=== PATIENT | male | born 1945 | race Hispanic/Latino ===

== ENCOUNTER 2017-05-29 22:28 | Inpatient (IN) | payer MEDICARE ==
[2017-05-29] MEDS ORDERED: NACL 0.9% 500 ML 500 ML IV ONE (23:25)
--- NOTE | 2017-05-29 23:33 | Emergency Department Report ---
ED Shortness of Breath HPI - General Chief Complaint: Multiple Trauma Stated Complaint: L SIDE PAIN/MAURA Time Seen by Provider: 05/29/17 23:24 Source: patient, EMS Mode of arrival: Stretcher Limitations: No Limitations - History of Present Illness Initial Comments: 72 years old male brought by EMS with him in complaining of shortness of breath as seen on for 2 days patient has history of COPD congestive heart failure out of his medication for 7 days per EMS report .patient also indicated stated that he fell on his left side and is complaining of left-sided chest and left upper abdominal pain. No other injury. Patient denied fever nausea or vomiting. MD Complaint: shortness of breath, chest pain -: days(s) (to ) Severity: moderate Known History Of: COPD, congestive heart failure - Related Data Home Medications Medication Instructions Recorded Confirmed Last Taken Ferrous Sulfate [Iron Supplement 325 mg PO DAILY 06/08/16 04/11/17 Unknown 325 Mg tab] Previous Rx's Medication Instructions Recorded Last Taken Type Famotidine [Pepcid] 20 mg PO BID #60 tablet 02/25/17 Unknown Rx Digoxin [Lanoxin] 0.125 mg PO DAILY@1700 #30 tablet 03/08/17 Unknown Rx Metoprolol Xl [Metoprolol 75 mg PO QDAY #90 tablet 03/08/17 Unknown Rx SUCCINATE ER TAB] ALPRAZolam [Xanax TAB] 1 mg PO BID PRN #7 tablet 04/16/17 Unknown Rx Aspirin EC [Aspirin Enteric Coated 81 mg PO QDAY #30 tablet. 04/16/17 Unknown Rx TAB] Furosemide [Lasix TAB] 40 mg PO QDAY tablet 04/16/17 Unknown Rx Gabapentin [Neurontin] 100 mg PO Q8HR capsule 04/16/17 Unknown Rx Ipratropium [Atrovent NEB] 0.5 mg IH Q6HRT nebu 04/16/17 Unknown Rx Levalbuterol 1.25 [Xopenex] 1.25 mg IH Q6HRT nebu 04/16/17 Unknown Rx Lisinopril [Zestril TAB] 10 mg PO QDAY tablet 04/16/17 Unknown Rx predniSONE [Deltasone] 0 mg PO QDAY #60 tablet 04/16/17 Unknown Rx traMADol [Ultram 50 MG tab] 50 mg PO Q6H PRN #5 tablet 04/16/17 Unknown Rx Allergies Allergy/AdvReac Type Severity Reaction Status Date / Time albuterol Allergy Shortness Verified 02/20/17 17:27 of Breath ED Review of Systems ROS: Stated complaint: L SIDE PAIN/MAURA Other details as noted in HPI Comment: All other systems reviewed and negative Constitutional: denies: chills, fever Respiratory: cough, shortness of breath, SOB with exertion, SOB at rest Cardiovascular: chest pain, dyspnea on exertion Gastrointestinal: abdominal pain. denies: nausea, vomiting Neurological: denies: headache, weakness, numbness ED Past Medical Hx - Past Medical History Previous Medical History?: Yes Hx Hypertension: Yes Hx Heart Attack/AMI: No Hx Congestive Heart Failure: Yes Hx GERD: Yes (PUD) Hx Psychiatric Treatment: Yes (Anxiety, panic disorder) Hx Asthma: Yes Hx COPD: Yes Additional medical history: sciatica and back pain, atrial fibrillation - Surgical History Hx Cholecystectomy: Yes Additional Surgical History: PUD - abd surg - tonsilectomy, adenoidectomy, Colon resection - Social History Smoking Status: Never Smoker Substance Use Type: None - Medications Home Medications: Home Medications Medication Instructions Recorded Confirmed Last Taken Type Ferrous Sulfate [Iron Supplement 325 mg PO DAILY 06/08/16 04/11/17 Unknown History 325 Mg tab] Famotidine [Pepcid] 20 mg PO BID #60 tablet 02/25/17 04/11/17 Unknown Rx Digoxin [Lanoxin] 0.125 mg PO DAILY@1700 #30 tablet 03/08/17 04/11/17 Unknown Rx Metoprolol Xl [Metoprolol 75 mg PO QDAY #90 tablet 03/08/17 04/11/17 Unknown Rx SUCCINATE ER TAB] ALPRAZolam [Xanax TAB] 1 mg PO BID PRN #7 tablet 04/16/17 Unknown Rx Aspirin EC [Aspirin Enteric Coated 81 mg PO QDAY #30 tablet. 04/16/17 Unknown Rx TAB] Furosemide [Lasix TAB] 40 mg PO QDAY tablet 04/16/17 Unknown Rx Gabapentin [Neurontin] 100 mg PO Q8HR capsule 04/16/17 Unknown Rx Ipratropium [Atrovent NEB] 0.5 mg IH Q6HRT nebu 04/16/17 Unknown Rx Levalbuterol 1.25 [Xopenex] 1.25 mg IH Q6HRT nebu 04/16/17 Unknown Rx Lisinopril [Zestril TAB] 10 mg PO QDAY tablet 04/16/17 Unknown Rx predniSONE [Deltasone] 0 mg PO QDAY #60 tablet 04/16/17 Unknown Rx traMADol [Ultram 50 MG tab] 50 mg PO Q6H PRN #5 tablet 04/16/17 Unknown Rx ED Physical Exam - General Limitations: No Limitations General appearance: alert, in no apparent distress - Head Head exam: Present: atraumatic - Eye Eye exam: Present: normal appearance - ENT ENT exam: Present: normal exam - Neck Neck exam: Present: normal inspection - Respiratory Respiratory exam: Present: rales, chest wall tenderness, decreased breath sounds , prolonged expiratory. Absent: respiratory distress, wheezes, rhonchi, stridor , accessory muscle use - Cardiovascular Cardiovascular Exam: Present: tachycardia, irregular rhythm - GI/Abdominal GI/Abdominal exam: Present: soft, tenderness (left upper quadrant). Absent: guarding, rebound, rigid, normal bowel sounds - Extremities Exam Extremities exam: Present: normal inspection - Back Exam Back exam: Present: normal inspection - Neurological Exam Neurological exam: Present: alert, oriented X3, CN II-XII intact - Skin Skin exam: Present: warm, dry ED Course Vital Signs 05/29/17 05/29/17 05/29/17 22:31 22:43 22:46 Temperature 98.4 F Pulse Rate 95 H 107 H Respiratory 12 29 H 25 H Rate Blood Pressure 95/58 95/58 O2 Sat by Pulse 96 97 Oximetry 05/29/17 05/29/17 05/29/17 23:00 23:16 23:30 Temperature Pulse Rate 107 H 107 H 104 H Respiratory 22 29 H 28 H Rate Blood Pressure 89/59 89/59 105/70 O2 Sat by Pulse 97 98 100 Oximetry 05/29/17 05/30/17 05/30/17 23:46 00:00 00:16 Temperature Pulse Rate 112 H 109 H Respiratory 21 28 H 28 H Rate Blood Pressure 105/70 96/70 96/70 O2 Sat by Pulse 99 100 98 Oximetry 05/30/17 05/30/17 05/30/17 00:30 01:15 01:30 Temperature Pulse Rate Respiratory 27 H 19 Rate Blood Pressure 106/80 106/80 95/63 O2 Sat by Pulse 96 100 90 Oximetry 05/30/17 02:00 Temperature Pulse Rate Respiratory 20 Rate Blood Pressure 95/63 O2 Sat by Pulse 93 Oximetry - Reevaluation(s) Reevaluation #1: 05/30/17 02:55 patient stated that he feel better Discuss with Dr Boykin for admission. ED Medical Decision Making - Lab Data Result diagrams: 05/30/17 01:07 05/30/17 01:07 Critical care attestation.: If time is entered above; I have spent that time in minutes in the direct care of this critically ill patient, excluding procedure time. ED Disposition Clinical Impression: Chest pain, Pneumonia Disposition: - OP ADMIT IP TO THIS HOSP Is pt being admited?: Yes Condition: Stable Instructions: Chest Pain (ED), Bacterial Pneumonia (ED) Referrals: PRIMARY CARE, [Primary Care Provider] - 3-5 Days
[2017-05-30] MEDS ORDERED: ZOFRAN IV ONE (00:48)
[2017-05-30] MEDS ORDERED: MORPHINE IV ONE ×2 (00:48→03:25)
[2017-05-30 01:21] LABS: Mean Corpuscular HGB Conc 29 % (32-34); Platelet Count 188 K/mm3 (140-440); Red Blood Count 4.23 M/mm3 (3.65-5.03)
--- NOTE | 2017-05-30 01:25 | Cat Scan Report ---
FINAL REPORT PROCEDURE: CT CHEST WO CON TECHNIQUE: Computerized axial tomography of the chest was performed without contrast material. This study is performed without intravenous contrast and the sensitivity for pathology, including neoplasms, adenopathy, abscess, pulmonary embolism and aortic dissection, is reduced. HISTORY: trauma COMPARISON: 03/08/2017 TECHNICAL QUALITY: Satisfactory. FINDINGS: Heart and pericardium: The heart size is enlarged. Mild pericardial effusion is noted.. Thoracic aorta: The ascending aorta is dilated measuring up to 5.1 centimeters. This has not changed significantly since prior study. Moderate atherosclerosis of the aorta is identified.. Pulmonary vasculature: Normal. Lymph nodes: There are lymph nodes in the mediastinum these measure up to 12 millimeters.. Lungs: COPD with fibrosis and scarring in both lungs. There is pleural thickening with loculated effusion and the left lower lung. Slight pleural thickening with mild effusion right lower lung. Central airway appears patent.. Pleural space: Bilateral pleural thickening with slight effusions, on the left there is loculated effusion in the lower lung and midlung.. Musculoskeletal structures: Moderate degenerative changes of the thoracic spine. No acute osseous abnormality.. Upper abdominal structures: No significant abnormality. IMPRESSION: COPD with fibrosis and scarring in both lungs. Pleural thickening a loculated effusion in the left lung. Slight pleural thickening and mild effusion right lower lung. No pneumothorax. Ascending aortic aneurysm measures up to 5.1 centimeters. Moderate atherosclerosis of the aorta..
[2017-05-30 01:27] LABS: Hemoglobin 8.2 gm/dl (11.8-15.2); White Blood Count 21.1 K/mm3 (4.5-11.0)
[2017-05-30 01:28] LABS: Hematocrit 28.9 % (35.5-45.6); Mean Corpuscular Hemoglobin 20 pg (28-32); Mean Corpuscular Volume 68 fl (84-94); Red Cell Distribution Width 23.1 % (13.2-15.2)
--- NOTE | 2017-05-30 01:36 | Cat Scan Report ---
FINAL REPORT PROCEDURE: CT ABDOMEN PELVIS WO CON TECHNIQUE: Computerized axial tomography of the abdomen and pelvis was performed without intravenous contrast. This study is performed without intravascular contrast material and its sensitivity for abdominal and pelvic pathology, including neoplasms, inflammation, abscess, free fluid, thrombosis, arterial dissection and infarction, is reduced compared with a contrast enhanced study. HISTORY: trauma COMPARISON: No prior studies are available for comparison. FINDINGS: Liver: The liver size is normal. The attenuation is normal.. Spleen: Normal size and attenuation. Gallbladder and biliary system: The gallbladder is absent. No dilatation of the biliary ductal system. Pancreas: Normal. Adrenals: Normal. Kidneys: Both kidneys have normal size. Mild left hydronephrosis is identified. The left ureter has a normal caliber without obstruction. No stones or masses are identified.. GI tract: This stomach is normal. There are surgical clips identified in the epigastric region. The small bowel has a normal caliber without obstruction, ileus or enteritis. There is significant fecal debris throughout the colon. Constipation is suspected. Mild diverticular changes in the sigmoid colon region. No inflammatory process is noted.. Lymph nodes and mesentery: There are some scattered lymph nodes identified throughout the abdomen and pelvis.. Vasculature: Mild atherosclerosis of the aorta and branching vessels.. Bladder: The urinary bladder is distended.. Reproductive organs: Normal. Peritoneum: No free fluid. Musculoskeletal structures: Moderate degenerative changes of the thoracic and lumbar spine.. Other: None. IMPRESSION: Mild left hydronephrosis is identified. The left ureter has a normal caliber. No evidence of renal stones or masses. Nonobstructive uropathy is possible. There is no evidence of intestinal obstruction. No ileus or enteritis. Significant fecal debris throughout the colon most consistent with constipation. Mild diverticulosis of the sigmoid colon. Diffuse scattered nondilated lymph nodes throughout the mesentery. Previous cholecystectomy..
[2017-05-30 01:43] LABS: Alanine Aminotransferase 10 units/L (7-56); Albumin 2.5 g/dL (3.9-5); Alkaline Phosphatase 98 units/L (35-129); Anion Gap 17 mmol/L; BUN/Creatinine Ratio 26.66; Blood Urea Nitrogen 16 mg/dL (9-20); Calcium 7.7 mg/dL (8.4-10.2); Carbon Dioxide 19 mmol/L (22-30); Glucose 90 mg/dL (75-100); Potassium 4.2 mmol/L (3.6-5.0); Sodium 138 mmol/L (137-145); Total Protein 5.1 g/dL (6.3-8.2)
[2017-05-30 02:37] LABS: ISTAT Base Excess -3; ISTAT DEVICE 0; ISTAT HCO3 21.8; ISTAT PCO2 35.4 (35-45); ISTAT PH 7.397 (7.35-7.45); ISTAT PO2 77 (80-105); ISTAT SO2 95; ISTAT TCO2 23
[2017-05-30 03:23] LABS: Blastocytes % (Manual) 0 %; Eosinophils % (Manual) 0 % (0.0-4.3)
[2017-05-30 03:24] LABS: Anisocytosis 1+; Diff Status Complete; Hypochromasia 1+; Ovalocytes 1+; Polychromasia Few
[2017-05-30] MEDS ORDERED: MORPHINE ONE (03:24)
[2017-05-30 03:26] LABS: Hypersegmented Neutrophils Few
[2017-05-30] MEDS ORDERED: ZOFRAN IV PRN (03:26)
[2017-05-30] MEDS ORDERED: TYLENOL PO PRN (03:26)
[2017-05-30] MEDS ORDERED: MILK OF MAGNESIA PO PRN (03:26)
[2017-05-30] MEDS ORDERED: DULCOLAX PR PRN (03:26)
--- NOTE | 2017-05-30 03:30 | History and Physical Report ---
History of Present Illness Date of examination: 05/30/17 History of present illness: 72-year-old man history of hypertension, CHF, coronary artery disease, COPD, A. fib, chronic back pain comes emergency room with complaint of cough productive of green sputum, fever and shortness of breath. He is stated he sustained a fall on the left side Review Of Systems: Constitutional: no chills, weight loss Ears, eyes, nose, mouth and throat: no nasal congestion, no nasal discharge, no sinus pressure, blurry vision, diplopia Neck: No neck pain or rigidity. Cardiovascular: chest pain, orthopnea, palpitations Respiratory:+ shortness of breath, cough Gastrointestinal: abdominal pain, hematochezia Genitourinary : no dysuria, frequency , hematuria Musculoskeletal: no joint swelling or muscle ache Integumentary: no rash, no pruritis Neurological: no parathesias, focal weakness Endocrine: no cold or heat intolerance, no polyuria or polydipsia Hematologic/Lymphatic: no easy bruising, no easy bleeding, no gland swelling Allergic/Immunologic: no urticaria, no angioedema. PAST MEDICAL HISTORY:hypertension, CHF, coronary artery disease, COPD, A. fib, chronic back pain PAST SURGICAL HISTORY: Tonsillectomy, adenoidectomy, colon resection FAMILY HISTORY: Hypertension SOCIAL HISTORY: Denies alcohol, tobacco, drugs Medications and Allergies Allergies Allergy/AdvReac Type Severity Reaction Status Date / Time albuterol Allergy Shortness Verified 02/20/17 17:27 of Breath Home Medications Medication Instructions Recorded Confirmed Last Taken Type Ferrous Sulfate [Iron Supplement 325 mg PO DAILY 06/08/16 06/01/17 1 Day Ago History 325 Mg tab] Doxycycline [Vibramycin CAP] 100 mg PO BID #4 capsule 06/03/17 Unknown Rx Levofloxacin [Levaquin TAB] 750 mg PO Q24HR #2 tablet 06/03/17 Unknown Rx oxyCODONE /ACETAMINOPHEN [Percocet 1 tab PO Q4H PRN #30 tablet 06/03/17 Unknown Rx 5/325 mg] ALPRAZolam [Xanax TAB] 1 mg PO BID PRN #7 tablet 06/05/17 Unknown Rx Aspirin EC [Aspirin Enteric Coated 81 mg PO QDAY #30 tablet. 06/05/17 Unknown Rx TAB] Digoxin [Lanoxin] 0.125 mg PO DAILY@1700 #30 tablet 06/05/17 Unknown Rx Famotidine [Pepcid] 20 mg PO BID #60 tablet 06/05/17 Unknown Rx Furosemide [Lasix TAB] 20 mg PO QDAY #30 tablet 06/05/17 Unknown Rx Gabapentin [Neurontin] 100 mg PO Q8HR #30 capsule 06/05/17 Unknown Rx Ipratropium [Atrovent NEB] 0.5 mg IH Q6HRT 30 Days 06/05/17 Unknown Rx Levalbuterol 1.25 [Xopenex] 1.25 mg IH Q6HRT 14 Days 06/05/17 Unknown Rx Metoprolol [Lopressor] 25 mg PO BID #60 tablet 06/05/17 Unknown Rx Potassium Chloride [K-Dur] 5 meq PO QDAY #30 tablet 06/05/17 Unknown Rx Active Meds: Active Medications Piperacillin Sod/Tazobactam Sod (Zosyn/Ns 3.375gm/50ml) 3.375 gm in 50 mls @ 100 mls/hr IV Q6HR LUIS Exam - Physical Exam Narrative exam: Gen. appearance: Patient lying in bed, no apparent distress HEENT: Normocephalic, atraumatic, pupils equally round and reactive to light, extraocular movement intact, and no sclericterus,. No JVD or thyromegaly or nodule,neck supple, no carotid bruit ,mucous membranes moist, no exudate or erythema Heart: S1, S2, regular rate and rhythm Lungs: Crackles and rhonchi bilaterally, decreased breath sounds on the left breathing comfortable Abdomen: Positive bowel sounds, nontender, nondistended, no organomegaly Extremity: No edema, cyanosis, clubbing Skin: No rash, nodules, warm, dry Neuro: Oriented 3, cranial nerves II-12 intact, speech is fluent, motor and sensory intact - Constitutional Vitals: Temp Pulse Resp BP Pulse Ox 98.4 F 109 H 20 95/63 93 05/29/17 22:43 05/30/17 00:00 05/30/17 02:00 05/30/17 02:00 05/30/17 02:00 Results - Labs CBC & Chem 7: 06/05/17 09:56 06/05/17 09:56 Labs: Abnormal lab results 05/30/17 05/30/17 05/30/17 Range/Units 01:07 01:07 01:07 WBC 21.1 H (4.5-11.0) K/mm3 Hgb 8.2 L (11.8-15.2) gm/dl Hct 28.9 L (35.5-45.6) % MCV 68 L (84-94) fl MCH 20 L (28-32) pg MCHC 29 L (32-34) % RDW 23.1 H (13.2-15.2) % Lymphocytes % (Manual) 12.0 L (13.4-35.0) % Monocytes % (Manual) 9.0 H (0.0-7.3) % Basophils % (Manual) 3.0 H (0.0-1.8) % Seg Neutrophils # Man 13.9 H (1.8-7.7) K/mm3 Monocytes # (Manual) 1.9 H (0.0-0.8) K/mm3 Basophils # (Manual) 0.6 H (0.0-0.1) K/mm3 POC ABG pO2 (80-105) Carbon Dioxide 19 L (22-30) mmol/L Creatinine 0.6 L (0.8-1.5) mg/dL Calcium 7.7 L (8.4-10.2) mg/dL NT-Pro-B Natriuret Pep 2333 H (0-900) pg/mL Total Protein 5.1 L (6.3-8.2) g/dL Albumin 2.5 L (3.9-5) g/dL 05/30/17 Range/Units 01:55 WBC (4.5-11.0) K/mm3 Hgb (11.8-15.2) gm/dl Hct (35.5-45.6) % MCV (84-94) fl MCH (28-32) pg MCHC (32-34) % RDW (13.2-15.2) % Lymphocytes % (Manual) (13.4-35.0) % Monocytes % (Manual) (0.0-7.3) % Basophils % (Manual) (0.0-1.8) % Seg Neutrophils # Man (1.8-7.7) K/mm3 Monocytes # (Manual) (0.0-0.8) K/mm3 Basophils # (Manual) (0.0-0.1) K/mm3 POC ABG pO2 77 L (80-105) Carbon Dioxide (22-30) mmol/L Creatinine (0.8-1.5) mg/dL Calcium (8.4-10.2) mg/dL NT-Pro-B Natriuret Pep (0-900) pg/mL Total Protein (6.3-8.2) g/dL Albumin (3.9-5) g/dL - Imaging and Cardiology CT scan - abdomen: report reviewed CT scan - chest: report reviewed CT scan - pelvis: report reviewed Assessment and Plan Assessment Sepsis Possible empyema COPD CHF, stable Hypertension Coronary artery disease A. fib Chronic back pain Plan Admit to medicine Start IV Zosyn, follow cultures, consult pulmonary No IV fluids, history of CHF Continue appropriate outpatient medications, start DVT prophylaxis
[2017-05-30] MEDS ORDERED: LEVAQUIN 750MG/150ML 750 MG/150 ML BAG IV SCH (04:00)
[2017-05-30] MEDS: ZOSYN/NS 3.375GM/50ML 3.375 GM/50 ML BAG IV SCH ×3 (06:34→18:43)
[2017-05-30] MEDS: ATROVENT IH SCH ×3 (08:13→19:21)
--- NOTE | 2017-05-30 08:16 | Event Note ---
Date: 05/30/17 72-year-old man history of hypertension, CHF, coronary artery disease, COPD, A. fib, chronic back pain comes emergency room with complaint of cough productive of green sputum, fever and shortness of breath. He is stated he sustained a fall on the left side. At home he is unable to care for himself is not compliant with his medications. He does not complain with anticoagulation. He continues to deteriorate, and is in and out of hospital. The only med he seems to take when he is at home and his pain meds. CT chest, image reviewed, COPD with fibrosis and scarring in both lungs. Pleural thickening, a loculated effusion in the left lung. Slight pleural thickening and mild effusion right lung. No pneumothorax. If any acute sick aneurysm measures up to 5.[address] abdomen and pelvis without contrast: Image reviewed: Mild left hydronephrosis is identified. The left ureter has a normal caliber. No evidence of renal stones or masses. An obstructive uropathy is possible. There is no evidence of his tests and I'm obstruction, no IVS enteritis. Significant fecal debris throughout the colon was consistent with constipation. Sepsis due to Possible empyema pulm and ID consult IV abx, fup blood cx Will Need CT surgery to assess for drainage of loculated effusion and send fluid for culture CT thoracentesis, ordered COPD nebs, steroids and abx CHF, stable euvolemic at this time, continue home meds Hypertension cont home meds Cardiac: Coronary artery disease/A. fib HR fairly controlled, continue meds cardiology consult check dig level continue Dig, B-Bl and MARIBEL non compliant with Anticoagulation Severe Malnutrition Mower Mechanic consult, encourage balanced diet Chronic back pain Pain meds as needed Opioid dependence cont pain meds Complete immobility due to Frailty PT ordered, continue supportive care Failure to thrive Continue supportive care DVT ppx lovenox This patient is non compliant, and very frail, unable to care for himself, he would benefit from SNF placement, PT, OT
[2017-05-30] MEDS ORDERED: VANCOMYCIN PHARMACY TO DOSE IV SCH (09:00)
[2017-05-30] MEDS: HALFPRIN EC PO SCH (09:47)
[2017-05-30] MEDS: FEOSOL PO SCH (09:47)
[2017-05-30] MEDS: PEPCID PO SCH ×2 (09:47→22:53)
[2017-05-30] MEDS: LOVENOX SUB-Q SCH (09:48)
[2017-05-30] MEDS: ZESTRIL PO SCH (09:49)
[2017-05-30] MEDS: TOPROL XL PO SCH (09:50)
[2017-05-30] MEDS ORDERED: VANCOMYCIN 1,250 MG in NACL 0.9% 250ML 250 ML IV ONE ×2 (10:00→14:00)
[2017-05-30] MEDS ORDERED: LASIX PO SCH (10:00)
[2017-05-30] MEDS ORDERED: LOVENOX SUB-Q SCH (10:00)
[2017-05-30] MEDS ORDERED: MORPHINE IV PRN (10:30)
--- NOTE | 2017-05-30 11:53 | Consultation ---
History of Present Illness Consult date: 05/30/17 Reason for consult: other (chest pain ,back pain) - History of present illness History of present illness: this is a debilitated 72 year old male with a hx of CHF, advanced COPD, aortic anuerysm (stable), who presented to the ER for evaluation of chest pain and back pain, his WBC was 22k, he is a poor historian, A CT of the Chest revealed small left side loculated posterior pleural effusion, lung changes of COPD, Thoracic anueurysm (5 cm and stable comparing last CT chest). He is extremely malnourished and debilitated. Past History Past Medical History: CAD, COPD, hypertension, PVD Past Surgical History: Other (hx of some type of gastric surgery he can not recall 30 years ago/poor historian) Social history: smoking Family history: other (unobtainable) Medications and Allergies Allergies Allergy/AdvReac Type Severity Reaction Status Date / Time albuterol Allergy Shortness Verified 02/20/17 17:27 of Breath Home Medications Medication Instructions Recorded Confirmed Last Taken Type Ferrous Sulfate [Iron Supplement 325 mg PO DAILY 06/08/16 04/11/17 Unknown History 325 Mg tab] Famotidine [Pepcid] 20 mg PO BID #60 tablet 02/25/17 04/11/17 Unknown Rx Digoxin [Lanoxin] 0.125 mg PO DAILY@1700 #30 tablet 03/08/17 04/11/17 Unknown Rx Metoprolol Xl [Metoprolol 75 mg PO QDAY #90 tablet 03/08/17 04/11/17 Unknown Rx SUCCINATE ER TAB] ALPRAZolam [Xanax TAB] 1 mg PO BID PRN #7 tablet 04/16/17 Unknown Rx Aspirin EC [Aspirin Enteric Coated 81 mg PO QDAY #30 tablet. 04/16/17 Unknown Rx TAB] Furosemide [Lasix TAB] 40 mg PO QDAY tablet 04/16/17 Unknown Rx Gabapentin [Neurontin] 100 mg PO Q8HR capsule 04/16/17 Unknown Rx Ipratropium [Atrovent NEB] 0.5 mg IH Q6HRT nebu 04/16/17 Unknown Rx Levalbuterol 1.25 [Xopenex] 1.25 mg IH Q6HRT nebu 04/16/17 Unknown Rx Lisinopril [Zestril TAB] 10 mg PO QDAY tablet 04/16/17 Unknown Rx predniSONE [Deltasone] 0 mg PO QDAY #60 tablet 04/16/17 Unknown Rx traMADol [Ultram 50 MG tab] 50 mg PO Q6H PRN #5 tablet 04/16/17 Unknown Rx Active Meds: Active Medications Acetaminophen (Tylenol) 650 mg PO Q4H PRN PRN Reason: Pain MILD(1-3)/Fever >100.5/[place] Last Admin: 05/30/17 07:08 Dose: 650 mg Alprazolam (Xanax) 1 mg PO BID PRN PRN Reason: Anxiety Arformoterol Tartrate (Brovana Nebu) 15 mcg IH Q12HRT [facility] Aspirin (Halfprin Ec) 81 mg PO QDAY [facility] Last Admin: 05/30/17 09:47 Dose: 81 mg Bisacodyl (Dulcolax) 10 mg NV QDAY PRN PRN Reason: Constipation unrelieved by MOM Budesonide (Pulmicort) 0.5 mg IH Q12HRT [facility] Digoxin (Lanoxin) 0.125 mg PO DAILY@1700 [facility] Enoxaparin Sodium (Lovenox) 40 mg SUB-Q QDAY@1000 [facility] Last Admin: 05/30/17 09:48 Dose: 40 mg Famotidine (Pepcid) 20 mg PO BID [facility] Last Admin: 05/30/17 09:47 Dose: 20 mg Ferrous Sulfate (Feosol) 325 mg PO DAILY [facility] Last Admin: 05/30/17 09:47 Dose: 325 mg Furosemide (Lasix) 40 mg PO QDAY [facility] Gabapentin (Neurontin) 100 mg PO Q8HR [facility] Piperacillin Sod/Tazobactam Sod (Zosyn/Ns 3.375gm/50ml) 3.375 gm in 50 mls @ 100 mls/hr IV Q6HR [facility] Last Admin: 05/30/17 06:34 Dose: 100 mls/hr Levofloxacin/Dextrose (Levaquin 750mg/150ml) 750 mg in 150 mls @ 100 mls/hr IV Q24H [facility] PRN Reason: Protocol Last Admin: 05/30/17 05:36 Dose: 100 mls/hr Vancomycin HCl (Vancomycin/Ns 1 Gm/250 Ml) 1 gm in 250 mls @ 166.667 mls/hr IV Q12H [facility] Influenza Virus Vaccine Quadrival (Fluarix Quad [id number](36 Mos+)) 0.5 ml IM .ONCE ONE Stop: 05/31/17 12:01 Ipratropium [place] (Atrovent) 0.5 mg IH Q6HRT [facility] Last Admin: 05/30/17 08:13 Dose: 0.5 mg Levalbuterol HCl (Xopenex) 0.63 mg IH Q6HRT [facility] Lisinopril (Zestril) 10 mg PO QDAY [facility] Last Admin: 05/30/17 09:49 Dose: Not Given Magnesium Hydroxide (Milk Of Magnesia) 30 ml PO Q4H PRN PRN Reason: Constipation Methylprednisolone Sodium Succinate (Solu-Medrol) 40 mg IV Q24HR [facility] Last Admin: 05/30/17 09:47 Dose: 40 mg Metoprolol Succinate (Toprol Xl) 75 mg PO QDAY [facility] Last Admin: 05/30/17 09:50 Dose: Not Given Morphine Sulfate (Morphine) 2 mg IV Q4H PRN PRN Reason: Pain, Moderate (4-6) Last Admin: 05/30/17 11:16 Dose: 2 mg Ondansetron HCl (Zofran) 4 mg IV Q8H PRN PRN Reason: N/V unrelieved by Reglan Oxycodone/Acetaminophen (Percocet 5/325) 1 tab PO Q4H PRN PRN Reason: Pain, Moderate (4-6) Vancomycin HCl (Vancomycin Pharmacy To Dose) 1 each IV PKCONSULT [facility] PRN Reason: Protocol Review of Systems - Constitutional other (chest and back pain, shortness of breath) Exam Vital Signs Resp 12 05/29/17 22:31 - General physical appearance Positive: cathetic, chronically ill - Eyes Positive: PERRL, normal occular movement - ENT Positive: normal pinna, normal nares, normal mucosa, no hearing loss, no congestion - Neck Positive: trachea midline - Respiratory Positive: clear to percussion - Cardiovascular Rhythm: irregularly irregular Heart Sounds: Present: S1 & S2. Absent: rub, click - Breasts Breasts: normal - Abdomen Abdomen: Present: soft, bowel sounds normal Hernia: none (midline lap scar/healed) - Neurologic Neurologic: other (poor historian) - Psychiatric Psychiatric: other (poor historian) Results - Labs 05/30/17 01:07 05/30/17 01:07 Assessment and Plan left sided pneumonia with small associated loculated left pleural effusion malnourished and deconditioned Very poor surical candidate with I suspect advanced COPD, dimentia? Aortic anuerysm hx CHF, afib? Recc conservative management, aggressive nutritional measures, consider pulm evaluation, possibe thoracocentesis for dx fluid and cultures.
--- NOTE | 2017-05-30 11:53 | Consultation ---
History of Present Illness Consult date: 05/30/17 Consult reason: congestive heart failure, shortness of breath History of present illness: 72-year-old man history of hypertension, CHF, coronary artery disease, COPD, A. fib, chronic back pain comes emergency room with complaint of cough productive of green sputum, fever and shortness of breath. He is stated he sustained a fall on the left side. Patient is well-known to us and has been seen by us in the past but he is quite noncompliant. His main symptom at this time is left sided pain. He apparently fell in the kitchen and hurt his lower left chest. Patient is a nonsmoker. Patient is seen for further cardiac evaluation. Patient was noted to have a loculated pleural effusion on the left. The concern is that this may be an empyema and is currently on IV antibiotic. Pulmonary and ID consult is being obtained. There is consideration for CT surgery to consider drainage of this loculated effusion. Patient denies any chest pain suggestive of angina pectoris. He has not been taking his medications regularly and is quite noncompliant with follow-up and medications. Patient has no significant paroxysmal nocturnal dyspnea recurrent edema recently. Past History Past Medical History: atrial fib, CAD, heart failure (nonsmoker), hypertension, seizures Family history: hypertension Medications and Allergies Allergies Allergy/AdvReac Type Severity Reaction Status Date / Time albuterol Allergy Shortness Verified 02/20/17 17:27 of Breath Home Medications Medication Instructions Recorded Confirmed Last Taken Type Ferrous Sulfate [Iron Supplement 325 mg PO DAILY 06/08/16 04/11/17 Unknown History 325 Mg tab] Famotidine [Pepcid] 20 mg PO BID #60 tablet 02/25/17 04/11/17 Unknown Rx Digoxin [Lanoxin] 0.125 mg PO DAILY@1700 #30 tablet 03/08/17 04/11/17 Unknown Rx Metoprolol Xl [Metoprolol 75 mg PO QDAY #90 tablet 03/08/17 04/11/17 Unknown Rx SUCCINATE ER TAB] ALPRAZolam [Xanax TAB] 1 mg PO BID PRN #7 tablet 04/16/17 Unknown Rx Aspirin EC [Aspirin Enteric Coated 81 mg PO QDAY #30 tablet. 04/16/17 Unknown Rx TAB] Furosemide [Lasix TAB] 40 mg PO QDAY tablet 04/16/17 Unknown Rx Gabapentin [Neurontin] 100 mg PO Q8HR capsule 04/16/17 Unknown Rx Ipratropium [Atrovent NEB] 0.5 mg IH Q6HRT nebu 04/16/17 Unknown Rx Levalbuterol 1.25 [Xopenex] 1.25 mg IH Q6HRT nebu 04/16/17 Unknown Rx Lisinopril [Zestril TAB] 10 mg PO QDAY tablet 04/16/17 Unknown Rx predniSONE [Deltasone] 0 mg PO QDAY #60 tablet 04/16/17 Unknown Rx traMADol [Ultram 50 MG tab] 50 mg PO Q6H PRN #5 tablet 04/16/17 Unknown Rx Active Meds: Active Medications Acetaminophen (Tylenol) 650 mg PO Q4H PRN PRN Reason: Pain MILD(1-3)/Fever >100.5/[place] Last Admin: 05/30/17 07:08 Dose: 650 mg Alprazolam (Xanax) 1 mg PO BID PRN PRN Reason: Anxiety Arformoterol Tartrate (Brovana Nebu) 15 mcg IH Q12HRT [facility] Aspirin (Halfprin Ec) 81 mg PO QDAY [facility] Last Admin: 05/30/17 09:47 Dose: 81 mg Bisacodyl (Dulcolax) 10 mg [place] QDAY PRN PRN Reason: Constipation unrelieved by MOM Budesonide (Pulmicort) 0.5 mg IH Q12HRT [facility] Digoxin (Lanoxin) 0.125 mg PO DAILY@1700 [facility] Enoxaparin Sodium (Lovenox) 40 mg SUB-Q QDAY@1000 [facility] Last Admin: 05/30/17 09:48 Dose: 40 mg Famotidine (Pepcid) 20 mg PO BID [facility] Last Admin: 05/30/17 09:47 Dose: 20 mg Ferrous Sulfate (Feosol) 325 mg PO DAILY [facility] Last Admin: 05/30/17 09:47 Dose: 325 mg Furosemide (Lasix) 40 mg PO QDAY [facility] Gabapentin (Neurontin) 100 mg PO Q8HR [facility] Piperacillin Sod/Tazobactam Sod (Zosyn/Ns 3.375gm/50ml) 3.375 gm in 50 mls @ 100 mls/hr IV Q6HR [facility] Last Admin: 05/30/17 06:34 Dose: 100 mls/hr Levofloxacin/Dextrose (Levaquin 750mg/150ml) 750 mg in 150 mls @ 100 mls/hr IV Q24H [facility] PRN Reason: Protocol Last Admin: 05/30/17 05:36 Dose: 100 mls/hr Vancomycin HCl (Vancomycin/Ns 1 Gm/250 Ml) 1 gm in 250 mls @ 166.667 mls/hr IV Q12H [facility] Influenza Virus Vaccine Quadrival (Fluarix Quad [id number](36 Mos+)) 0.5 ml IM .ONCE ONE Stop: 05/31/17 12:01 Ipratropium [place] (Atrovent) 0.5 mg IH Q6HRT [facility] Last Admin: 05/30/17 08:13 Dose: 0.5 mg Levalbuterol HCl (Xopenex) 0.63 mg IH Q6HRT [facility] Lisinopril (Zestril) 10 mg PO QDAY [facility] Last Admin: 05/30/17 09:49 Dose: Not Given Magnesium Hydroxide (Milk Of Magnesia) 30 ml PO Q4H PRN PRN Reason: Constipation Methylprednisolone Sodium Succinate (Solu-Medrol) 40 mg IV Q24HR [facility] Last Admin: 05/30/17 09:47 Dose: 40 mg Metoprolol Succinate (Toprol Xl) 75 mg PO QDAY [facility] Last Admin: 05/30/17 09:50 Dose: Not Given Morphine Sulfate (Morphine) 2 mg IV Q4H PRN PRN Reason: Pain, Moderate (4-6) Last Admin: 05/30/17 11:16 Dose: 2 mg Ondansetron HCl (Zofran) 4 mg IV Q8H PRN PRN Reason: N/V unrelieved by Reglan Oxycodone/Acetaminophen (Percocet 5/325) 1 tab PO Q4H PRN PRN Reason: Pain, Moderate (4-6) Vancomycin HCl (Vancomycin Pharmacy To Dose) 1 each IV PKCONSULT [facility] PRN Reason: Protocol Review of Systems Eyes: bilateral: other (no symptoms) Ears, nose, mouth and throat: other (no symptoms) Cardiovascular: shortness of breath, dyspnea on exertion, other (as in the present illness) Respiratory: shortness of breath Gastrointestinal: other (no significant abdominal pain nausea or vomiting) Musculoskeletal: other (patient is complaining of pain in the lower left chest where he fell and bruised. ) Psychiatric: anxiety Endocrine: other (history of diabetes) Physical Examination Vital Signs Resp 12 05/29/17 22:31 General appearance: other (patient appears chronically ill and emaciated. In distress due to his left lower chest pain from his fall) HEENT: Positive: PERRL Neck: Positive: neck supple Cardiac: Positive: irregularly irregular Lungs: Positive: Other (reduced breath sounds in both bases, more so on the left side and prolonged recovery phase.) Neuro: Positive: Grossly Intact Abdomen: Positive: Soft Skin: Positive: Clear Extremities: Present: Other (no edema or tenderness) Results 05/30/17 01:07 05/30/17 01:07 EKG interpretations - Telemetry EKG Rhythm: Atrial Fibrillation - EKG Supraventricular dysrhythmia: atrial fibrillation Assessment and Plan 72-year-old man history of hypertension, CHF, coronary artery disease, COPD, A. fib, chronic back pain comes emergency room with complaint of cough productive of green sputum, fever and shortness of breath. He is stated he sustained a fall on the left side. Currently cardiac status is satisfactory patient is known to have a chronic systolic heart failure. I will obtain a echocardiogram. Patient has atrial fibrillation but the rate is controlled. #1. Systolic heart failure #2. Atrial fibrillation rate controlled patient is noncompliant with anticoagulation. #3. Hypertension #4 COPD #5. Diabetes #6. Coronary artery disease #7. Sepsis and possible empyema Patient will be followed closely and monitored along with you. Overall prognosis is guarded due to multiple medical issues.
--- NOTE | 2017-05-30 12:09 | Consultation ---
History of Present Illness Consult date: 05/30/17 Requesting physician: DENZEL GREGORY Reason for consult: pleural effusion (Loculated / complex) History of present illness: PULMONARY/CCM CONSULT NOTE (Full dictation # [id number]) Please see dictated notes for full details Past History Past Medical History: atrial fib, CAD, heart failure (nonsmoker), hypertension, seizures Past Surgical History: Other (hx of some type of gastric surgery he can not recall 30 years ago/poor historian) Social history: smoking Family history: hypertension Medications and Allergies Allergies Allergy/AdvReac Type Severity Reaction Status Date / Time albuterol Allergy Shortness Verified 02/20/17 17:27 of Breath Home Medications Medication Instructions Recorded Confirmed Last Taken Type Ferrous Sulfate [Iron Supplement 325 mg PO DAILY 06/08/16 04/11/17 Unknown History 325 Mg tab] Famotidine [Pepcid] 20 mg PO BID #60 tablet 02/25/17 04/11/17 Unknown Rx Digoxin [Lanoxin] 0.125 mg PO DAILY@1700 #30 tablet 03/08/17 04/11/17 Unknown Rx Metoprolol Xl [Metoprolol 75 mg PO QDAY #90 tablet 03/08/17 04/11/17 Unknown Rx SUCCINATE ER TAB] ALPRAZolam [Xanax TAB] 1 mg PO BID PRN #7 tablet 04/16/17 Unknown Rx Aspirin EC [Aspirin Enteric Coated 81 mg PO QDAY #30 tablet.dr 04/16/17 Unknown Rx TAB] Furosemide [Lasix TAB] 40 mg PO QDAY tablet 04/16/17 Unknown Rx Gabapentin [Neurontin] 100 mg PO Q8HR capsule 04/16/17 Unknown Rx Ipratropium [Atrovent NEB] 0.5 mg IH Q6HRT nebu 04/16/17 Unknown Rx Levalbuterol 1.25 [Xopenex] 1.25 mg IH Q6HRT nebu 04/16/17 Unknown Rx Lisinopril [Zestril TAB] 10 mg PO QDAY tablet 04/16/17 Unknown Rx predniSONE [Deltasone] 0 mg PO QDAY #60 tablet 04/16/17 Unknown Rx traMADol [Ultram 50 MG tab] 50 mg PO Q6H PRN #5 tablet 04/16/17 Unknown Rx Active Meds: Active Medications Acetaminophen (Tylenol) 650 mg PO Q4H PRN PRN Reason: Pain MILD(1-3)/Fever >100.5/[place] Last Admin: 05/30/17 07:08 Dose: 650 mg Alprazolam (Xanax) 1 mg PO BID PRN PRN Reason: Anxiety Arformoterol Tartrate (Brovana Nebu) 15 mcg IH Q12HRT [facility] Aspirin (Halfprin Ec) 81 mg PO QDAY [facility] Last Admin: 05/30/17 09:47 Dose: 81 mg Bisacodyl (Dulcolax) 10 mg [place] QDAY PRN PRN Reason: Constipation unrelieved by MOM Budesonide (Pulmicort) 0.5 mg IH Q12HRT [facility] Digoxin (Lanoxin) 0.125 mg PO DAILY@1700 [facility] Enoxaparin Sodium (Lovenox) 40 mg SUB-Q QDAY@1000 [facility] Last Admin: 05/30/17 09:48 Dose: 40 mg Famotidine (Pepcid) 20 mg PO BID [facility] Last Admin: 05/30/17 09:47 Dose: 20 mg Ferrous Sulfate (Feosol) 325 mg PO DAILY [facility] Last Admin: 05/30/17 09:47 Dose: 325 mg Furosemide (Lasix) 40 mg PO QDAY [facility] Gabapentin (Neurontin) 100 mg PO Q8HR [facility] Piperacillin Sod/Tazobactam Sod (Zosyn/Ns 3.375gm/50ml) 3.375 gm in 50 mls @ 100 mls/hr IV Q6HR [facility] Last Admin: 05/30/17 06:34 Dose: 100 mls/hr Levofloxacin/Dextrose (Levaquin 750mg/150ml) 750 mg in 150 mls @ 100 mls/hr IV Q24H [facility] PRN Reason: Protocol Last Admin: 05/30/17 05:36 Dose: 100 mls/hr Vancomycin HCl (Vancomycin/Ns 1 Gm/250 Ml) 1 gm in 250 mls @ 166.667 mls/hr IV Q12H [facility] Influenza Virus Vaccine Quadrival (Fluarix Quad [id number](36 Mos+)) 0.5 ml IM .ONCE ONE Stop: 05/31/17 12:01 Ipratropium [place] (Atrovent) 0.5 mg IH Q6HRT [facility] Last Admin: 05/30/17 08:13 Dose: 0.5 mg Levalbuterol HCl (Xopenex) 0.63 mg IH Q6HRT [facility] Lisinopril (Zestril) 10 mg PO QDAY [facility] Last Admin: 05/30/17 09:49 Dose: Not Given Magnesium Hydroxide (Milk Of Magnesia) 30 ml PO Q4H PRN PRN Reason: Constipation Methylprednisolone Sodium Succinate (Solu-Medrol) 40 mg IV Q24HR [facility] Last Admin: 05/30/17 09:47 Dose: 40 mg Metoprolol Succinate (Toprol Xl) 75 mg PO QDAY [facility] Last Admin: 05/30/17 09:50 Dose: Not Given Morphine Sulfate (Morphine) 2 mg IV Q4H PRN PRN Reason: Pain, Moderate (4-6) Last Admin: 05/30/17 11:16 Dose: 2 mg Ondansetron HCl (Zofran) 4 mg IV Q8H PRN PRN Reason: N/V unrelieved by Reglan Oxycodone/Acetaminophen (Percocet 5/325) 1 tab PO Q4H PRN PRN Reason: Pain, Moderate (4-6) Vancomycin HCl (Vancomycin Pharmacy To Dose) 1 each IV PKCONSULT [facility] PRN Reason: Protocol Physical Examination Vital signs: Vital Signs Resp 12 05/29/17 22:31 Results - Laboratory Findings CBC and BMP: 05/30/17 01:07 05/30/17 01:07 ABG POC ABG pH 7.397 (7.35-7.45) 05/30/17 01:55 POC ABG pCO2 35.4 (35-45) 05/30/17 01:55 POC ABG pO2 77 (80-105) L 05/30/17 01:55 POC ABG HCO3 21.8 05/30/17 01:55 POC ABG Total CO2 23 05/30/17 01:55 POC ABG O2 Sat 95 05/30/17 01:55
[2017-05-30] MEDS: XOPENEX IH SCH ×2 (13:51→19:20)
[2017-05-30] MEDS: NEURONTIN PO SCH ×2 (14:07→22:53)
[2017-05-30] MEDS: PERCOCET 5/325 PO PRN (14:08)
--- NOTE | 2017-05-30 14:36 | Consultation ---
History of Present Illness - Reason for Consult Consult date: 05/30/17 pneumonia with pleural effusion Requesting physician: KRISTY FRANK - History of Present Illness This is a 72 year-old male with history of CHF EF 30%, COPD, Afib, CLL, opioid dependence, admitted on 05/29/2017 due to 48-hour history of worsening SOB and productive cough with green sputum production. He reports cough has been on/off for 3 weeks. Of note, he was discharged from the hospital 04/11-04/16/17 due to respiratory failure from CHF exacerbation and presumed pneumonia treated medically with antibiotics and BIPAP. At that time his blood cx and urine cx were negative. He has chronic leukocytosis from CLL. From last discharge day his WBC 26K. He also reports a recent fall at his kitchen floor, face down and hitting his left chest. He is currently c/o severe left sided chest pain and is requesting pain meds-"narcotics nad xanax". In the ED, temperature was 98.4, BP 95/58, HR 95. WBC 21K. CT chest demonstrated COPD changes and fibrosis/scarring with left pleural thickening and loculations. CT abd showed mild Left hydro, no stones and constipation. Current Antimicrobials: 05/30 Zosyn 05/30 Vancomycin 05/30 levaquin Previous Antimicrobials: Microbiology: Blood cultures: 05/30 pending Past History Past Medical History: atrial fib, CAD, heart failure (nonsmoker), hypertension, seizures Past Surgical History: Other (hx of some type of gastric surgery he can not recall 30 years ago/poor historian) Social history: smoking Family history: hypertension Medications and Allergies Allergies Allergy/AdvReac Type Severity Reaction Status Date / Time albuterol Allergy Shortness Verified 02/20/17 17:27 of Breath Home Medications Medication Instructions Recorded Confirmed Last Taken Type Ferrous Sulfate [Iron Supplement 325 mg PO DAILY 06/08/16 04/11/17 Unknown History 325 Mg tab] Famotidine [Pepcid] 20 mg PO BID #60 tablet 02/25/17 04/11/17 Unknown Rx Digoxin [Lanoxin] 0.125 mg PO DAILY@1700 #30 tablet 03/08/17 04/11/17 Unknown Rx Metoprolol Xl [Metoprolol 75 mg PO QDAY #90 tablet 03/08/17 04/11/17 Unknown Rx SUCCINATE ER TAB] ALPRAZolam [Xanax TAB] 1 mg PO BID PRN #7 tablet 04/16/17 Unknown Rx Aspirin EC [Aspirin Enteric Coated 81 mg PO QDAY #30 tablet. 04/16/17 Unknown Rx TAB] Furosemide [Lasix TAB] 40 mg PO QDAY tablet 04/16/17 Unknown Rx Gabapentin [Neurontin] 100 mg PO Q8HR capsule 04/16/17 Unknown Rx Ipratropium [Atrovent NEB] 0.5 mg IH Q6HRT nebu 04/16/17 Unknown Rx Levalbuterol 1.25 [Xopenex] 1.25 mg IH Q6HRT nebu 04/16/17 Unknown Rx Lisinopril [Zestril TAB] 10 mg PO QDAY tablet 04/16/17 Unknown Rx predniSONE [Deltasone] 0 mg PO QDAY #60 tablet 04/16/17 Unknown Rx traMADol [Ultram 50 MG tab] 50 mg PO Q6H PRN #5 tablet 04/16/17 Unknown Rx Active Meds: Active Medications Acetaminophen (Tylenol) 650 mg PO Q4H PRN PRN Reason: Pain MILD(1-3)/Fever >100.5/[place] Last Admin: 05/30/17 07:08 Dose: 650 mg Alprazolam (Xanax) 1 mg PO BID PRN PRN Reason: Anxiety Arformoterol Tartrate (Brovana Nebu) 15 mcg IH Q12HRT [facility] Aspirin (Halfprin Ec) 81 mg PO QDAY [facility] Last Admin: 05/30/17 09:47 Dose: 81 mg Bisacodyl (Dulcolax) 10 mg [place] QDAY PRN PRN Reason: Constipation unrelieved by MOM Budesonide (Pulmicort) 0.5 mg IH Q12HRT [facility] Digoxin (Lanoxin) 0.125 mg PO DAILY@1700 [facility] Enoxaparin Sodium (Lovenox) 40 mg SUB-Q QDAY@1000 [facility] Last Admin: 05/30/17 09:48 Dose: 40 mg Famotidine (Pepcid) 20 mg PO BID [facility] Last Admin: 05/30/17 09:47 Dose: 20 mg Ferrous Sulfate (Feosol) 325 mg PO DAILY [facility] Last Admin: 05/30/17 09:47 Dose: 325 mg Furosemide (Lasix) 40 mg PO QDAY [facility] Gabapentin (Neurontin) 100 mg PO Q8HR [facility] Last Admin: 05/30/17 14:07 Dose: 100 mg Piperacillin Sod/Tazobactam Sod (Zosyn/Ns 3.375gm/50ml) 3.375 gm in 50 mls @ 100 mls/hr IV Q6HR [facility] Last Admin: 05/30/17 14:10 Dose: 100 mls/hr Levofloxacin/Dextrose (Levaquin 750mg/150ml) 750 mg in 150 mls @ 100 mls/hr IV Q24H [facility] PRN Reason: Protocol Last Admin: 05/30/17 05:36 Dose: 100 mls/hr Vancomycin HCl (Vancomycin/Ns 1 Gm/250 Ml) 1 gm in 250 mls @ 166.667 mls/hr IV Q12H [facility] Vancomycin HCl 1,250 mg/ (Sodium Chloride) 262.5 mls @ 166.667 mls/hr IV ONCE ONE Stop: 05/30/17 15:34 Influenza Virus Vaccine Quadrival (Fluarix Quad [id number](36 Mos+)) 0.5 ml IM .ONCE ONE Stop: 05/31/17 12:01 Ipratropium [place] (Atrovent) 0.5 mg IH Q6HRT [facility] Last Admin: 05/30/17 13:51 Dose: 0.5 mg Levalbuterol HCl (Xopenex) 0.63 mg IH Q6HRT [facility] Last Admin: 05/30/17 13:51 Dose: 0.63 mg Lisinopril (Zestril) 10 mg PO QDAY [facility] Last Admin: 05/30/17 09:49 Dose: Not Given Magnesium Hydroxide (Milk Of Magnesia) 30 ml PO Q4H PRN PRN Reason: Constipation Methylprednisolone Sodium Succinate (Solu-Medrol) 40 mg IV Q24HR [facility] Last Admin: 05/30/17 09:47 Dose: 40 mg Metoprolol Succinate (Toprol Xl) 75 mg PO QDAY [facility] Last Admin: 05/30/17 09:50 Dose: Not Given Morphine Sulfate (Morphine) 2 mg IV Q4H PRN PRN Reason: Pain, Moderate (4-6) Last Admin: 05/30/17 11:16 Dose: 2 mg Ondansetron HCl (Zofran) 4 mg IV Q8H PRN PRN Reason: N/V unrelieved by Reglan Oxycodone/Acetaminophen (Percocet 5/325) 1 tab PO Q4H PRN PRN Reason: Pain, Moderate (4-6) Last Admin: 05/30/17 14:08 Dose: 1 tab Vancomycin HCl (Vancomycin Pharmacy To Dose) 1 each IV PKCONSULT [facility] PRN Reason: Protocol Review of Systems Constitutional: no weight loss Ears, nose, mouth and throat: no nasal congestion, no nasal discharge, no sinus pressure Cardiovascular: chest pain, shortness of breath Respiratory: cough, cough with sputum, shortness of breath, dyspnea on exertion , no hemoptysis Gastrointestinal: nausea, constipation, no vomiting, no diarrhea Genitourinary Male: no dysuria Rectal: no pain Musculoskeletal: no neck stiffness, no neck pain, no muscle weakness Integumentary: no rash Neurological: no head injury, no weakness Psychiatric: anxiety Endocrine: no cold intolerance, no heat intolerance Hematologic/Lymphatic: easy bruising Physical Examination - Physical Exam Narrative exam: General appearance: Alert in NAD, conversant Eyes: anicteric sclerae, moist conjunctivae; PERRLA HENT: Atraumatic; +edentulous, oropharynx clear with moist mucous membranes and no mucosal ulcerations/no oral thrush; normal hard and soft palate. Normal external ears. Neck: Trachea midline; supple, no thyromegaly or lymphadenopathy Lungs: +bilateral crackles + decreased BS to the left CV: tachy Abdomen: Soft, non-tender; no masses or hepatosplenomegaly, +old midline surgical scar Extremities: No peripheral edema or extremity lymphadenopathy Skin: +multiple bilateral arms ecchymoses and skin tears. +left nasal ucler. Psych: Appropriate affect, alert and oriented to person, place and time. Neuro: alert and oriented x 3. Moving all extermities Lines: No CVL / PICC - Constitutional Vitals: Vital Signs Temp Pulse Resp BP Pulse Ox 97.6 F 111 H 22 96/64 100 05/30/17 07:00 05/30/17 13:59 05/30/17 14:08 05/30/17 09:49 05/30/17 08:42 Temperature -Last 24 Hours Temperature 97.6 F Temperature 98.1 F Results - Labs CBC & Chem 7: 05/30/17 01:07 05/30/17 01:07 - Imaging and Cardiology CT scan - abdomen: report reviewed CT scan - chest: report reviewed Assessment and Plan Assessment: 1) Sepsis: Present on admission, manifested by fever, worsening leukocytosis ( higher from baseline leukocytosis), hypotension. Etiology - secondary to pneumonia. 2) Complicated left-sided pneumonia with presumed loculated pleural effusion ? HCAP ? aspiration 3) COPD 4) CHF 5) Opioid dependence Plan: -agree with CT-guided thoracentesis to eval for empyema. Send pleural fluid for Gram stain, culture, cytology, glucose, protein, LDH, cell count and differential -follow-up blood cultures -obtain respiratory cultures as possible -check procalcitonin, C-reactive protein (CRP) -continue zosyn and vancomycin for now -stop levaquin -opioid dependence management Thank you Dr Frank for your consultation, will follow up with you. Anjana Schmid MD Infectious Diseases Specialist [facility] ([facility] M [phone] O [phone]
[2017-05-30] MEDS: DILAUDID IV PRN (17:08)
[2017-05-30] MEDS: LANOXIN PO SCH (17:09)
[2017-05-30] MEDS: PULMICORT IH SCH (19:20)
[2017-05-30] MEDS: BROVANA NEBU IH SCH (19:20)
[2017-05-30 20:04] LABS: Bilirubin,Urine NEG (Negative); Blood,Urine NEG (Negative); Ketones,Urine NEG (Negative); Leukocyte Esterase,Urine NEG (Negative); Mucus,Urine FEW /HPF; Nitrite,Urine NEG (Negative)
[2017-05-30] MEDS: XANAX PO PRN (20:21)
[2017-05-30] MEDS: VANCOMYCIN/NS 1 GM/250 ML 1 GM/250 ML BAG IV SCH (22:55)
[2017-05-31] MEDS: DILAUDID IV PRN ×3 (01:13→15:59)
[2017-05-31] MEDS: ZOSYN/NS 3.375GM/50ML 3.375 GM/50 ML BAG IV SCH ×4 (01:14→19:30)
[2017-05-31] MEDS: XOPENEX IH SCH ×4 (01:32→19:24)
[2017-05-31] MEDS: ATROVENT IH SCH ×4 (01:32→19:24)
--- NOTE | 2017-05-31 02:46 | Consultation ---
PULMONARY CONSULTATION CONSULTING PHYSICIAN: Dr. Boykin. REASON FOR CONSULTATION: Loculated pleural effusion. CHIEF COMPLAINT AND HISTORY OF PRESENT ILLNESS: The patient is a 72-year-old male with past medical history significant amongst other things for a diagnosis of COPD, brought into the Emergency Room complaining of shortness of breath, which has been going on for a couple of days. According to the patient, he fell on his left side and had been of left side pain, it is pleuritic in nature. He denies any nausea, vomiting, fevers or chills. Imaging was done and was consistent with a loculated left pleural effusion. We are asked to assist in care. When I stopped by to see him, he was resting in bed. He had received some p.o. analgesia without improvement. He had also received some IV analgesia without improvement. He was still complaining of pain. Now with regards to tobacco use or abuse history, he denies any history of tobacco use whatsoever. That really is as much of the history of presentation as I have. PAST MEDICAL HISTORY: Chronic obstructive lung disease, congestive heart failure, hypertension, gastroesophageal reflux disease, history of anxiety disorder, history of sciatica and back pain as well as atrial fibrillation. PAST SURGICAL HISTORY: He has had a cholecystectomy done. He has had a tonsillectomy, adenoidectomy, and colon resection. MEDICATIONS: He was on at the time I stopped by to see him, according to the medication administration record included the following: Tylenol 650 mg p.o. q.4h. p.r.n. mild pain, Xanax 1 mg p.o. b.i.d. Brovana 15 mcg inhaled q.12h., aspirin 81 mg p.o. daily, p.r.n. Dulcolax, Pulmicort 0.5 mg inhaled q.12h., digoxin 0.125 mg p.o. daily, Lovenox 40 mg subcutaneous daily, Pepcid 20 mg p.o. b.i.d., Feosol 325 mg p.o. daily, Lasix 40 mg p.o. daily, Neurontin 100 mg p.o. q.8h., Atrovent 0.5 mg inhaled q.6h. scheduled, as well as Xopenex 0.63 mg inhaled q.6h. scheduled, lisinopril 10 mg p.o. daily, p.r.n. milk of magnesia, Solu-Medrol 40 mg IV q.24h., metoprolol 75 mg p.o. daily, Zofran 4 mg IV q.8h. p.r.n. nausea and vomiting, morphine 2 mg IV q.4h. p.r.n. moderate pain, and Zosyn 3.375 grams IV q.6h. as well as vancomycin 1 gram IV q.12h. ALLERGIES: He does have allergy to albuterol. Nature of the allergy is unknown. DIET: Thin gentleman. Denies significant weight loss or gain in the preceding few weeks to months. FAMILY AND SOCIAL HISTORY: The patient, I believe, lives in the community. Denies any history of alcohol, tobacco, or illicit drug use or abuse. Family history, otherwise unknown. REVIEW OF SYSTEMS: No loss of consciousness. No new onset seizures. He states that his legs gave way and that how he fell down. Denies gross hematochezia or melena. No gross hematuria or dysuria. No hematemesis. Complete 14-system review of systems obtained. Pertinent positives and/or negatives as in body of history above, otherwise they are noncontributory. PHYSICAL EXAMINATION: VITAL SIGNS: On examination, he was afebrile, temperature 98.4 degrees Fahrenheit, pulse 95, respiratory rate 29, blood pressure 95/58, and O2 sats 96%, inspired oxygen concentration was not recorded. He has remained afebrile since admission. HEAD, EYES, EARS, NOSE, AND THROAT: Pupils are equal, round, about 3-4 mm, reactive to light. Extraocular muscle movements appeared intact. Grossly, there were no palpable lymph nodes in the supraclavicular or submandibular lymph node chains. Oropharynx is a Mallampati #2 oropharynx. LUNGS: Auscultation of both lung dickinson, diminished left lower lobe air entry, tenderness to palpation over the left lateral hemithorax. No wheezing. HEART: Heart sounds 1 and 2 are heard. They were in regular rate and rhythm at the time of my evaluation. ABDOMEN: Soft, bowel sounds are positive, did not appear tender. EXTREMITIES: Without overt digital clubbing or cyanosis. He has some third spacing and edema to his extremities. Neurologically exam is grossly nonfocal. LABORATORY DATA: For my review are as follows: White cell count 21,100 with a hemoglobin of , hematocrit of 28.9, platelets 188. Arterial blood gas showed a pH of 7.40, pCO2 of 35, pO2 of 77 that was on room air. Serum sodium was 138, potassium 4.2, chloride 106, bicarbonate 19, BUN 16, creatinine 0.6, glucose 90. Lactic acid level within normal limits. Liver function tests essentially within normal limits. BNP is elevated at 2333. Albumin is low at 2.5. Blood cultures are no growth to date. I have reviewed the chest x-ray. He has significant emphysematous changes, but there appeared to be lower lobe predominant which is atypical for tobacco certainly. Areas of bronchiectasis is also noted in the bases bilaterally. He has a loculated left pleural effusion with some fluid in the major fissure and some of this actually looks chronic to be honest. It is unclear if there is actually a significant amount of fluid for studies. CT of the abdomen and pelvis was also done and that was read as mild left hydronephrosis, otherwise essentially stable. ASSESSMENT AND PLAN: We have an elderly gentleman who I will not even surprise may even have had some surgical intervention that involves the left lower lobe region in the past, but he is in with certainly a loculated pleural effusion, leukocytosis, and we may be dealing with a parapneumonic effusion versus an empyema based on aspiration or just a pneumonia. It could also be some bleeding related to his fall, I do not see any gross rib fractures on the CT scan. The important thing in this gentleman was certainly to need to help control the pain, so that he does take deep breaths and prevent significant atelectasis and worsening of his respiratory status. I will change his analgesia to Dilaudid in the short-term for the next 24-48 hours. I will deploy bilevel positive airway pressure ventilation therapy at bedtime, just to ensure that we get good ventilation through the night. Aspiration precautions will be maintained. Oxygen will be offered if sats drop below 90%. Again, he should continue the antibiotics. A diagnostic thoracentesis will be ordered and see if that is possible. If there is a safe window I will get an ultrasound also of the chest to help and make fair decision. He is appropriately on DVT prophylaxis as well as GI prophylaxis. Flu and pneumonia vaccination will be per protocol. Thank you very much for the consult. We will follow along. We will make further recommendations as picture progresses/becomes clearer. Infectious Disease has been consulted. I would defer antibiotic coverage to them. JOB# [id number] FELIPE/TASIA
[2017-05-31 06:17] LABS: Mean Corpuscular HGB Conc 29 % (32-34); Platelet Count 219 K/mm3 (140-440); Red Blood Count 4.31 M/mm3 (3.65-5.03)
[2017-05-31 06:21] LABS: Hematocrit 28.9 % (35.5-45.6); Hemoglobin 8.4 gm/dl (11.8-15.2); Mean Corpuscular Hemoglobin 20 pg (28-32); Mean Corpuscular Volume 67 fl (84-94); Red Cell Distribution Width 23.3 % (13.2-15.2)
[2017-05-31] MEDS: NEURONTIN PO SCH ×3 (06:27→21:42)
[2017-05-31 06:31] LABS: Anion Gap 20 mmol/L; BUN/Creatinine Ratio 22.22; Blood Urea Nitrogen 20 mg/dL (9-20); Calcium 7.8 mg/dL (8.4-10.2); Carbon Dioxide 19 mmol/L (22-30); Chloride 106.3 mmol/L (98-107); Glucose 160 mg/dL (75-100); Potassium 4.7 mmol/L (3.6-5.0); Sodium 141 mmol/L (137-145)
[2017-05-31 07:12] LABS: Anisocytosis 1+; Basophils % (Manual) 0 % (0.0-1.8); Blastocytes % (Manual) 0 %; Diff Status Complete; Eosinophils % (Manual) 0 % (0.0-4.3); Hypochromasia 1+; Platelet Estimate Consistent w Auto; Polychromasia Rare; Schistocytes Rare
[2017-05-31] MEDS: BROVANA NEBU IH SCH ×2 (07:15→19:24)
[2017-05-31] MEDS: PULMICORT IH SCH ×2 (07:15→19:24)
--- NOTE | 2017-05-31 08:52 | Progress Note ---
Assessment and Plan Assessment and plan: 72-year-old man history of hypertension, CHF, coronary artery disease, COPD, A. fib, chronic back pain comes emergency room with complaint of cough productive of green sputum, fever and shortness of breath. He is stated he sustained a fall on the left side. At home he is unable to care for himself is not compliant with his medications. He does not complain with anticoagulation. He continues to deteriorate, and is in and out of hospital. The only med he seems to take when he is at home and his pain meds. CT chest, image reviewed, COPD with fibrosis and scarring in both lungs. Pleural thickening, a loculated effusion in the left lung. Slight pleural thickening and mild effusion right lung. No pneumothorax. If any acute sick aneurysm measures up to 5.[address] abdomen and pelvis without contrast: Image reviewed: Mild left hydronephrosis is identified. The left ureter has a normal caliber. No evidence of renal stones or masses. An obstructive uropathy is possible. There is no evidence of his tests and I'm obstruction, no IVS enteritis. Significant fecal debris throughout the colon was consistent with constipation. Sepsis due to Possible empyema pulm and ID consult IV abx, fup blood cx Will Need CT surgery to assess for drainage of loculated effusion and send fluid for culture CT thoracentesis, ordered Acute hypoxic respiratory failure Most likely due to lung infection, improving, continue oxygen supplementation COPD nebs, steroids and abx CHF, stable euvolemic at this time, continue home meds Hypertension cont home meds Cardiac: Coronary artery disease/A. fib HR fairly controlled, continue meds cardiology consult dig level 0.4 continue Dig, B-Bl and MARIBEL non compliant with Anticoagulation Severe Malnutrition Guest Relation Officer consult, encourage balanced diet Chronic back pain Pain meds as needed Opioid dependence cont pain meds Complete immobility due to Frailty PT ordered, continue supportive care Failure to thrive Continue supportive care DVT ppx lovenox This patient is non compliant, and very frail, unable to care for himself, he would benefit from SNF placement, PT, OT May benefit from Hospice since his main concern now is pain management History Interval history: He denies shortness of breath or chest pain is complaining of chronic back pain only. He doesn't complain of multiple falls Hospitalist Physical - Physical exam Narrative exam: General: Appears chronically ill, frail HEENT: MMM, EOMI cardiac: S1-S2 heard lungs: Reduced air entry in the bases abdomen: soft, nontender, nondistended bowel sounds positive extremities: no edema clubbing or cyanosis Skin: no rash or lesion Neuro: no focal deficit Psych: appropriate behavior and mood, cognition intact - Constitutional Vitals: Temp Pulse Resp BP Pulse Ox 98.2 F 112 H 18 115/83 99 05/31/17 05:04 05/31/17 05:04 05/31/17 05:04 05/31/17 05:04 05/31/17 05:04 General appearance: Present: other (patient appears chronically ill and emaciated. In distress due to his left lower chest pain from his fall) Results - Labs CBC & Chem 7: 05/31/17 05:49 05/31/17 05:49 Labs: Laboratory Last Values WBC 13.0 K/mm3 (4.5-11.0) H 05/31/17 05:49 RBC 4.31 M/mm3 (3.65-5.03) 05/31/17 05:49 Hgb 8.4 gm/dl (11.8-15.2) L 05/31/17 05:49 Hct 28.9 % (35.5-45.6) L 05/31/17 05:49 MCV 67 fl (84-94) L 05/31/17 05:49 MCH 20 pg (28-32) L 05/31/17 05:49 MCHC 29 % (32-34) L 05/31/17 05:49 RDW 23.3 % (13.2-15.2) H 05/31/17 05:49 Plt Count 219 K/mm3 (140-440) 05/31/17 05:49 Add Manual Diff Complete 05/31/17 05:49 Total Counted 100 05/31/17 05:49 Seg Neuts % (Manual) 75.0 % (40.0-70.0) H 05/31/17 05:49 Band Neutrophils % 10.0 % 05/31/17 05:49 Lymphocytes % (Manual) 3.0 % (13.4-35.0) L 05/31/17 05:49 Reactive Lymphs % (Man) 0 % 05/31/17 05:49 Monocytes % (Manual) 9.0 % (0.0-7.3) H 05/31/17 05:49 Eosinophils % (Manual) 0 % (0.0-4.3) 05/31/17 05:49 Basophils % (Manual) 0 % (0.0-1.8) 05/31/17 05:49 Metamyelocytes % 3.0 % 05/31/17 05:49 Myelocytes % 0 % 05/31/17 05:49 Promyelocytes % 0 % 05/31/17 05:49 Blast Cells % 0 % 05/31/17 05:49 Nucleated RBC % 2.0 % (0.0-0.9) H 05/31/17 05:49 Seg Neutrophils # Man 9.8 K/mm3 (1.8-7.7) H 05/31/17 05:49 Band Neutrophils # 1.3 K/mm3 05/31/17 05:49 Lymphocytes # (Manual) 0.4 K/mm3 (1.2-5.4) L 05/31/17 05:49 Abs React Lymphs (Man) 0.0 K/mm3 05/31/17 05:49 Monocytes # (Manual) 1.2 K/mm3 (0.0-0.8) H 05/31/17 05:49 Eosinophils # (Manual) 0.0 K/mm3 (0.0-0.4) 05/31/17 05:49 Basophils # (Manual) 0.0 K/mm3 (0.0-0.1) 05/31/17 05:49 Metamyelocytes # 0.4 K/mm3 05/31/17 05:49 Myelocytes # 0.0 K/mm3 05/31/17 05:49 Promyelocytes # 0.0 K/mm3 05/31/17 05:49 Blast Cells # 0.0 K/mm3 05/31/17 05:49 WBC Morphology Not Reportable 05/31/17 05:49 Hypersegmented Neuts Not Reportable 05/31/17 05:49 Hyposegmented Neuts Not Reportable 05/31/17 05:49 Hypogranular Neuts Not Reportable 05/31/17 05:49 Smudge Cells Not Reportable 05/31/17 05:49 Toxic Granulation Not Reportable 05/31/17 05:49 Toxic Vacuolation Not Reportable 05/31/17 05:49 Dohle Bodies Not Reportable 05/31/17 05:49 Pelger-Huet Anomaly Not Reportable 05/31/17 05:49 Grabiel Rods Not Reportable 05/31/17 05:49 Platelet Estimate Consistent w auto 05/31/17 05:49 Clumped Platelets Not Reportable 05/31/17 05:49 Plt Clumps, EDTA Not Reportable 05/31/17 05:49 Large Platelets Not Reportable 05/31/17 05:49 Giant Platelets Not Reportable 05/31/17 05:49 Platelet Satelliting Not Reportable 05/31/17 05:49 Plt Morphology Comment Not Reportable 05/31/17 05:49 RBC Morphology Not Reportable 05/31/17 05:49 Dimorphic RBCs Not Reportable 05/31/17 05:49 Polychromasia Rare 05/31/17 05:49 Hypochromasia 1+ 05/31/17 05:49 Poikilocytosis Not Reportable 05/31/17 05:49 Anisocytosis 1+ 05/31/17 05:49 Microcytosis Not Reportable 05/31/17 05:49 Macrocytosis Not Reportable 05/31/17 05:49 Spherocytes Not Reportable 05/31/17 05:49 Pappenheimer Bodies Not Reportable 05/31/17 05:49 Sickle Cells Not Reportable 05/31/17 05:49 Target Cells Not Reportable 05/31/17 05:49 Tear Drop Cells Not Reportable 05/31/17 05:49 Ovalocytes Not Reportable 05/31/17 05:49 Helmet Cells Not Reportable 05/31/17 05:49 [place] Bodies Not Reportable 05/31/17 05:49 [place] Rings Not Reportable 05/31/17 05:49 [place] Cells Not Reportable 05/31/17 05:49 Bite Cells Not Reportable 05/31/17 05:49 Crenated Cell Not Reportable 05/31/17 05:49 Elliptocytes Not Reportable 05/31/17 05:49 Acanthocytes (Spur) Not Reportable 05/31/17 05:49 Rouleaux Not Reportable 05/31/17 05:49 Hemoglobin C Crystals Not Reportable 05/31/17 05:49 Schistocytes Rare 05/31/17 05:49 Malaria parasites Not Reportable 05/31/17 05:49 Tacho Bodies Not Reportable 05/31/17 05:49 Hem Pathologist Commnt No 05/31/17 05:49 POC ABG pH 7.397 (7.35-7.45) 05/30/17 01:55 POC ABG pCO2 35.4 (35-45) 05/30/17 01:55 POC ABG pO2 77 (80-105) L 05/30/17 01:55 POC ABG HCO3 21.8 05/30/17 01:55 POC ABG Total CO2 23 05/30/17 01:55 POC ABG O2 Sat 95 05/30/17 01:55 POC ABG Base Excess -3 05/30/17 01:55 FiO2 21 % 05/30/17 01:55 Sodium 141 mmol/L (137-145) 05/31/17 05:49 Potassium 4.7 mmol/L (3.6-5.0) 05/31/17 05:49 Chloride 106.3 mmol/L (98-107) 05/31/17 05:49 Carbon Dioxide 19 mmol/L (22-30) L 05/31/17 05:49 Anion Gap 20 mmol/L 05/31/17 05:49 BUN 20 mg/dL (9-20) 05/31/17 05:49 Creatinine 0.9 mg/dL (0.8-1.5) 05/31/17 05:49 Estimated GFR > 60 ml/min 05/31/17 05:49 BUN/Creatinine Ratio 22.22 % 05/31/17 05:49 Glucose 160 mg/dL (75-100) H 05/31/17 05:49 Lactic Acid 1.80 mmol/L (0.7-2.0) 05/30/17 07:13 Calcium 7.8 mg/dL (8.4-10.2) L 05/31/17 05:49 Total Bilirubin 1.10 mg/dL (0.1-1.2) 05/30/17 01:07 AST 19 units/L (5-40) 05/30/17 01:07 ALT 10 units/L (7-56) 05/30/17 01:07 Alkaline Phosphatase 98 units/L (35-129) 05/30/17 01:07 Lactate Dehydrogenase 333 units/L (91-180) H 05/30/17 17:11 Troponin T < 0.010 ng/mL (0.00-0.029) 05/30/17 01:07 C-Reactive Protein 7.10 mg/dL (0.00-1.30) H 05/30/17 17:11 NT-Pro-B Natriuret Pep 2333 pg/mL (0-900) H 05/30/17 01:07 Total Protein 5.1 g/dL (6.3-8.2) L 05/30/17 01:07 Albumin 2.5 g/dL (3.9-5) L 05/30/17 01:07 Albumin/Globulin Ratio 1.0 % 05/30/17 01:07 Urine Color [place] (Yellow) 05/30/17 19:05 Urine Turbidity Clear (Clear) 05/30/17 19:05 Urine pH 5.0 (5.0-7.0) 05/30/17 19:05 Ur Specific [place] 1.024 (1.003-1.030) 05/30/17 19:05 Urine Protein 30 mg/dl mg/dL (Negative) 05/30/17 19:05 Urine Glucose (UA) Neg mg/dL (Negative) 05/30/17 19:05 Urine Ketones Neg mg/dL (Negative) 05/30/17 19:05 Urine Blood Neg (Negative) 05/30/17 19:05 Urine Nitrite Neg (Negative) 05/30/17 19:05 Urine Bilirubin Neg (Negative) 05/30/17 19:05 Urine Urobilinogen 2.0 mg/dL (<2.0) 05/30/17 19:05 Ur Leukocyte Esterase Neg (Negative) 05/30/17 19:05 Urine WBC (Auto) 1.0 /HPF (0.0-6.0) 05/30/17 19:05 Urine RBC (Auto) 1.0 /HPF (0.0-6.0) 05/30/17 19:05 Urine Mucus Few /HPF 05/30/17 19:05 Digoxin 0.4 ng/mL (0.9-2.0) L 05/30/17 17:11
[2017-05-31 08:53] LABS: INR 1.17 (0.87-1.13)
[2017-05-31] MEDS: PERCOCET 5/325 PO PRN (08:57)
[2017-05-31] MEDS ORDERED: LASIX PO SCH (10:00)
--- NOTE | 2017-05-31 11:09 | Progress Note ---
Assessment and Plan 72-year-old man history of hypertension, CHF, coronary artery disease, COPD, A. fib, chronic back pain comes emergency room with complaint of cough productive of green sputum, fever and shortness of breath. He is stated he sustained a fall on the left side. Currently cardiac status is satisfactory patient is known to have a chronic systolic heart failure. Echocardiogram reviewed. Ejection fraction is 20-25%. Moderate to severe tricuspid regurgitation is present minimal pericardial effusion is noted. Cardiac rhythm strips are reviewed. Patient is noted to be in atrial fibrillation heart rate 100 -110 bpm. Labs are reviewed patient is noted to have significant anemia also. Continue current management. #1. Systolic heart failure #2. Atrial fibrillation rate controlled patient is noncompliant with anticoagulation. #3. Hypertension #4 COPD #5. Diabetes #6. Coronary artery disease #7. Sepsis and possible empyema #8. Anemia and leukocytosis Patient will be followed closely and monitored along with you. Overall prognosis is guarded due to multiple medical issues. - Patient Problems (1) Chest pain Current Visit: Yes Status: Acute Qualifiers: Chest pain type: C Ischemic chest pain type: I (2) Atrial fibrillation with RVR Current Visit: No Status: Acute (3) Chest wall contusion Current Visit: No Status: Acute Qualifiers: Encounter type: initial encounter Laterality: unspecified laterality Qualified Code(s): S20.219A - Contusion of unspecified front wall of thorax, initial encounter (4) CHF (congestive heart failure) Current Visit: No Status: Chronic Qualifiers: Congestive heart failure type: combined Congestive heart failure chronicity : C (5) Cardiomyopathy Current Visit: No Status: Chronic Qualifiers: Cardiomyopathy type: C (6) HTN (hypertension) Current Visit: No Status: Chronic Qualifiers: Hypertension type: essential hypertension Qualified Code(s): I10 - Essential (primary) hypertension (7) Pulmonary hypertension Current Visit: No Status: Chronic (8) Tricuspid regurgitation Current Visit: No Status: Chronic Qualifiers: Cardiac valve disease etiology: C Subjective Date of service: 05/31/17 Interval history: Patient is known to have atrial fibrillation and cardiomyopathy. Complains of mild dyspnea and fatigue. No chest pain Objective Vital Signs Temp Pulse Pulse Pulse Pulse Resp Resp 05/31/17 09:18 113 H 26 H 05/31/17 09:17 106 H 05/31/17 08:57 24 05/31/17 08:00 99.0 F 102 H 20 05/31/17 07:25 114 H 18 05/31/17 07:15 101 H 18 05/31/17 05:04 98.2 F 112 H 18 05/31/17 05:00 110 H 05/31/17 01:46 93 H 05/31/17 01:43 93 H 14 05/31/17 01:32 88 05/31/17 00:24 98.1 F 108 H 20 05/30/17 22:28 84 19 05/30/17 21:00 143 H 05/30/17 19:50 98.4 F 96 H 20 05/30/17 19:30 105 H 05/30/17 19:20 118 H 05/30/17 17:38 20 05/30/17 17:09 110 H 05/30/17 17:08 22 05/30/17 15:08 20 05/30/17 14:08 22 05/30/17 14:05 05/30/17 13:59 111 H 05/30/17 13:51 109 H 05/30/17 12:39 97.4 F L 94 H 18 05/30/17 11:46 20 05/30/17 11:16 22 Resp Resp BP Pulse Ox 05/31/17 09:18 98 05/31/17 09:17 05/31/17 08:57 05/31/17 08:00 110/82 98 05/31/17 07:25 05/31/17 07:15 98 05/31/17 05:04 115/83 99 05/31/17 05:00 05/31/17 01:46 17 05/31/17 01:43 98 05/31/17 01:32 18 05/31/17 00:24 118/70 98 05/30/17 22:28 100 05/30/17 21:00 05/30/17 19:50 97/68 94 05/30/17 19:30 18 05/30/17 19:20 18 05/30/17 17:38 05/30/17 17:09 05/30/17 17:08 05/30/17 15:08 05/30/17 14:08 05/30/17 14:05 22 05/30/17 13:59 17 05/30/17 13:51 17 05/30/17 12:39 109/71 97 05/30/17 11:46 05/30/17 11:16 - Physical Examination General: No Apparent Distress, Other (appears chronically ill) HEENT: Positive: PERRL Neck: Positive: neck supple Cardiac: Positive: irregularly irregular Lungs: Positive: Decreased Breath Sounds (both bases and more so on the left side) Neuro: Positive: Grossly Intact Abdomen: Positive: Soft Skin: Positive: Clear Extremities: Present: Other (no edema or calf tenderness) - Labs and Meds Cardiac Enzymes 05/30/17 Range/Units 17:11 Lactate Dehydrogenase 333 H (91-180) units/L Coagulation 05/31/17 Range/Units 08:08 PT 15.5 H (12.2-14.9) Sec. INR 1.17 H (0.87-1.13) CBC 05/31/17 Range/Units 05:49 WBC 13.0 H (4.5-11.0) K/mm3 RBC 4.31 (3.65-5.03) M/mm3 Hgb 8.4 L (11.8-15.2) gm/dl Hct 28.9 L (35.5-45.6) % Plt Count 219 (140-440) K/mm3 Comprehensive Metabolic Panel 05/31/17 Range/Units 05:49 Sodium 141 (137-145) mmol/L Potassium 4.7 (3.6-5.0) mmol/L Chloride 106.3 (98-107) mmol/L Carbon Dioxide 19 L (22-30) mmol/L BUN 20 (9-20) mg/dL Creatinine 0.9 (0.8-1.5) mg/dL Glucose 160 H (75-100) mg/dL Calcium 7.8 L (8.4-10.2) mg/dL
[2017-05-31] MEDS: TOPROL XL PO SCH (11:40)
[2017-05-31] MEDS: FEOSOL PO SCH (11:41)
[2017-05-31] MEDS: LOVENOX SUB-Q SCH (11:41)
[2017-05-31] MEDS: PEPCID PO SCH ×2 (11:41→21:42)
[2017-05-31] MEDS: ZESTRIL PO SCH (11:41)
[2017-05-31] MEDS: HALFPRIN EC PO SCH (11:42)
[2017-05-31] MEDS ORDERED: Fluarix Quad 2017-2018(36 MOS+) IM ONE (12:00)
[2017-05-31] MEDS: VANCOMYCIN/NS 1 GM/250 ML 1 GM/250 ML BAG IV SCH ×2 (12:39→23:26)
--- NOTE | 2017-05-31 13:35 | Progress Note ---
Assessment and Plan Assessment: 1) Sepsis: improving. Etiology - secondary to pneumonia. 2) Complicated left-sided pneumonia with presumed loculated pleural effusion ? HCAP ? aspiration. CRP 7. 3) COPD 4) CHF 5) Opioid dependence Plan: -agree with IR-guided thoracentesis to eval for empyema. Send pleural fluid for Gram stain, culture, cytology, glucose, protein, LDH, cell count and differential -may need CT surgery eval -follow-up blood cultures -continue zosyn and vancomycin-duration to be determined Thank you Dr Frank for your consultation, will follow up with you. Anjana Schmid MD Infectious Diseases Specialist [facility], [place] [facility] [phone] Subjective Date of service: 05/31/17 Interval history: Feels better, reports decreased chest pain. No fever, Tmax 99. Current Antimicrobials: 05/30 Zosyn 05/30 Vancomycin Previous Antimicrobials: 05/30 levaquin Microbiology: Blood cultures: 05/30 NGTD Objective - Exam Narrative Exam: General appearance: Alert in NAD, conversant Eyes: anicteric sclerae, moist conjunctivae; PERRLA HENT: Atraumatic; +edentulous, oropharynx clear with moist mucous membranes and no mucosal ulcerations/no oral thrush; normal hard and soft palate. Normal external ears. Neck: Trachea midline; supple, no thyromegaly or lymphadenopathy Lungs: +bilateral crackles + decreased BS to the left CV: tachy Abdomen: Soft, non-tender; no masses or hepatosplenomegaly, +old midline surgical scar Extremities: No peripheral edema or extremity lymphadenopathy Skin: +multiple bilateral arms ecchymoses and skin tears. +left nasal ucler. Psych: Appropriate affect, alert and oriented to person, place and time. Neuro: alert and oriented x 3. Moving all extermities Lines: No CVL / PICC - Constitutional Vitals: Vital Signs Temp Pulse Resp BP Pulse Ox 99.0 F 96 H 20 112/79 99 05/31/17 08:00 05/31/17 11:40 05/31/17 11:42 05/31/17 11:40 05/31/17 11:38 Temperature -Last 24 Hours Temperature 99.0 F Temperature 98.2 F Temperature 98.1 F Temperature 98.4 F - Labs CBC & Chem 7: 05/31/17 05:49 05/31/17 05:49 Labs: Abnormal lab results 05/30/17 05/30/17 05/30/17 Range/Units 17:11 17:11 17:11 WBC (4.5-11.0) K/mm3 Hgb (11.8-15.2) gm/dl Hct (35.5-45.6) % MCV (84-94) fl MCH (28-32) pg MCHC (32-34) % RDW (13.2-15.2) % Seg Neuts % (Manual) (40.0-70.0) % Lymphocytes % (Manual) (13.4-35.0) % Monocytes % (Manual) (0.0-7.3) % Nucleated RBC % (0.0-0.9) % Seg Neutrophils # Man (1.8-7.7) K/mm3 Lymphocytes # (Manual) (1.2-5.4) K/mm3 Monocytes # (Manual) (0.0-0.8) K/mm3 PT (12.2-14.9) Sec. INR (0.87-1.13) Carbon Dioxide (22-30) mmol/L Glucose (75-100) mg/dL Calcium (8.4-10.2) mg/dL Lactate Dehydrogenase 333 H (91-180) units/L C-Reactive Protein 7.10 H (0.00-1.30) mg/dL Digoxin 0.4 L (0.9-2.0) ng/mL 05/31/17 05/31/17 05/31/17 Range/Units 05:49 05:49 08:08 WBC 13.0 H (4.5-11.0) K/mm3 Hgb 8.4 L (11.8-15.2) gm/dl Hct 28.9 L (35.5-45.6) % MCV 67 L (84-94) fl MCH 20 L (28-32) pg MCHC 29 L (32-34) % RDW 23.3 H (13.2-15.2) % Seg Neuts % (Manual) 75.0 H (40.0-70.0) % Lymphocytes % (Manual) 3.0 L (13.4-35.0) % Monocytes % (Manual) 9.0 H (0.0-7.3) % Nucleated RBC % 2.0 H (0.0-0.9) % Seg Neutrophils # Man 9.8 H (1.8-7.7) K/mm3 Lymphocytes # (Manual) 0.4 L (1.2-5.4) K/mm3 Monocytes # (Manual) 1.2 H (0.0-0.8) K/mm3 PT 15.5 H (12.2-14.9) Sec. INR 1.17 H (0.87-1.13) Carbon Dioxide 19 L (22-30) mmol/L Glucose 160 H (75-100) mg/dL Calcium 7.8 L (8.4-10.2) mg/dL Lactate Dehydrogenase (91-180) units/L C-Reactive Protein (0.00-1.30) mg/dL Digoxin (0.9-2.0) ng/mL
--- NOTE | 2017-05-31 14:05 | Progress Note ---
Subjective Date of service: 05/31/17 Interval history: Seen and examined at bedside; 24 hour events reviewed; nursing and respiratory care staff consulted; no adverse overnight events reported to me; Objective Vital Signs - 12hr 05/31/17 05/31/17 05/31/17 05:00 05:04 07:15 Temperature 98.2 F Pulse Rate 110 H 112 H Pulse Rate [ 101 H Anterior Bilateral Throughout] Pulse Rate [ Left Radial] Respiratory 18 Rate Respiratory 18 Rate [Anterior Bilateral Throughout] Blood Pressure 115/83 O2 Sat by Pulse 99 98 Oximetry 05/31/17 05/31/17 05/31/17 07:25 08:00 08:57 Temperature 99.0 F Pulse Rate 102 H Pulse Rate [ 114 H Anterior Bilateral Throughout] Pulse Rate [ Left Radial] Respiratory 20 24 Rate Respiratory 18 Rate [Anterior Bilateral Throughout] Blood Pressure 110/82 O2 Sat by Pulse 98 Oximetry 05/31/17 05/31/17 05/31/17 09:17 09:18 11:38 Temperature Pulse Rate 106 H 96 H Pulse Rate [ Anterior Bilateral Throughout] Pulse Rate [ 113 H Left Radial] Respiratory 26 H 20 Rate Respiratory Rate [Anterior Bilateral Throughout] Blood Pressure 112/79 O2 Sat by Pulse 98 99 Oximetry 05/31/17 05/31/17 05/31/17 11:40 11:42 13:31 Temperature Pulse Rate 96 H Pulse Rate [ 108 H Anterior Bilateral Throughout] Pulse Rate [ Left Radial] Respiratory 20 Rate Respiratory 20 Rate [Anterior Bilateral Throughout] Blood Pressure 112/79 O2 Sat by Pulse Oximetry CBC and BMP: 05/31/17 05:49 05/31/17 05:49 ABG, PT/INR, D-dimer: ABG POC ABG pH 7.397 (7.35-7.45) 05/30/17 01:55 POC ABG pCO2 35.4 (35-45) 05/30/17 01:55 POC ABG pO2 77 (80-105) L 05/30/17 01:55 POC ABG HCO3 21.8 05/30/17 01:55 POC ABG Total CO2 23 05/30/17 01:55 POC ABG O2 Sat 95 05/30/17 01:55 PT/INR, D-dimer PT 15.5 Sec. (12.2-14.9) H 05/31/17 08:08 INR 1.17 (0.87-1.13) H 05/31/17 08:08 Abnormal lab findings: Abnormal Labs 05/30/17 05/30/17 05/30/17 17:11 17:11 17:11 WBC Hgb Hct MCV MCH MCHC RDW Seg Neuts % (Manual) Lymphocytes % (Manual) Monocytes % (Manual) Nucleated RBC % Seg Neutrophils # Man Lymphocytes # (Manual) Monocytes # (Manual) PT INR Carbon Dioxide Glucose Calcium Lactate Dehydrogenase 333 H C-Reactive Protein 7.10 H Digoxin 0.4 L 05/31/17 05/31/17 05/31/17 05:49 05:49 08:08 WBC 13.0 H Hgb 8.4 L Hct 28.9 L MCV 67 L MCH 20 L MCHC 29 L RDW 23.3 H Seg Neuts % (Manual) 75.0 H Lymphocytes % (Manual) 3.0 L Monocytes % (Manual) 9.0 H Nucleated RBC % 2.0 H Seg Neutrophils # Man 9.8 H Lymphocytes # (Manual) 0.4 L Monocytes # (Manual) 1.2 H PT 15.5 H INR 1.17 H Carbon Dioxide 19 L Glucose 160 H Calcium 7.8 L Lactate Dehydrogenase C-Reactive Protein Digoxin
[2017-05-31] MEDS: LANOXIN PO SCH (15:59)
[2017-06-01] MEDS: ZOSYN/NS 3.375GM/50ML 3.375 GM/50 ML BAG IV SCH ×3 (00:35→13:00)
[2017-06-01] MEDS: XOPENEX IH SCH ×4 (01:40→20:21)
[2017-06-01] MEDS: ATROVENT IH SCH ×4 (01:40→20:18)
--- NOTE | 2017-06-01 05:49 | Admit Criteria Form ---
Admission Criteria Documentation: PNEUMONIA, COMMUNITY ACQUIRED Clinical Indications for Admission to Inpatient Care (Place ' X' for any and all applicable criteria): Admission to inpatient status for two midnights or more is indicated for ANY ONE of the following (1)(2)(3): [ ]I. Hypoxia [ ]II. Hemodynamic instability [ ]III. Altered mental status that is severe or persistent [ ]IV. Dehydration that is severe or persistent. [ ]V. Bacteremia [ ]. Moderate-risk or high-risk category patients (Pneumonia Severity Index ( PSI) class IV or V, or CURB-65 score of 3 or greater). [ ]VII. Intermediate-risk category patients (e.g., PSI class III or CURB-65 score 2) who do not improve with outpatient and observation care treatment [ ]VIII. Outpatient treatment failure as indicated by 1 or more of the following(9): [ ]a) Failure to respond to antibiotic (eg, resistant organism) [ ]b) Clinically significant adverse effects from medication (eg, vomiting) [ ]c) Complications of pneumonia (eg, empyema, bacteremia) [ ]d) Significant worsening of comorbid cond necessitating inpatient care (eg, chronic heart failure) [X ]IX. Appropriate diagnostic testing and treatment unavailable in outpatient or recovery facility (eg, testing or infection control measures unavailable) [ ]X. Respiratory finding (eg. tachypnea) that do not respond to outpatient observation care treatment [ ]XI. Complicated pleural effusions (eg, emphysema, exudative, loculated) [ ]XII. Immunocompromised patients (e.g., AIDS, chronic steroid use) at moderate or high risk based on clinical evaluation. Extended stay beyond goal length of stay may be needed for (20) [ ]a) Unclear diagnosis [ ]b) Pleural disease [ ]c) Severe pneumonia or treatment failure [ ]d) Respiratory failure [ ]e) New onset hyponatremia (serum Na concentration less than 135 mEq/L(mmol/ L) [ ]f) Clinically significant comorbid illness (eg, heart failure, atrial fibrillation with rapid heart rate, alcohol withdrawal, renal insufficiency)(34)(35) [ ]g) Comorbid acute exacerbation of COPD(36) [ ]h) Concomitant diagnosis of malignancy [ ]i) Concomitant altered mental status [ ]j) Culture-identified Gram-negative or antibiotic-resistant organism (eg, Pseudomonas, methicillin-resistant Staphylococcus aureus MRSA)(30) [ ]k) Healthcare-associated pneumonia (36) The original [facility] content created by [facility] has been revised. The portions of the content which have been revised are identified through the use of italic text or in bold, and [facility] has neither reviewed nor approved the modified material. All other unmodified content is copyright [facility]. Please see references footnoted in the original [facility] edition 2016 Admission Criteria Met: Yes
[2017-06-01] MEDS: NEURONTIN PO SCH ×3 (05:56→22:45)
[2017-06-01] MEDS: PULMICORT IH SCH ×2 (07:32→20:18)
[2017-06-01] MEDS: BROVANA NEBU IH SCH ×2 (07:32→20:22)
--- NOTE | 2017-06-01 08:56 | Progress Note ---
Assessment and Plan Assessment and plan: 72-year-old man history of hypertension, CHF, coronary artery disease, COPD, A. fib, chronic back pain comes emergency room with complaint of cough productive of green sputum, fever and shortness of breath. He is stated he sustained a fall on the left side. At home he is unable to care for himself is not compliant with his medications. He does not complain with anticoagulation. He continues to deteriorate, and is in and out of hospital. The only med he seems to take when he is at home and his pain meds. CT chest, image reviewed, COPD with fibrosis and scarring in both lungs. Pleural thickening, a loculated effusion in the left lung. Slight pleural thickening and mild effusion right lung. No pneumothorax. If any acute sick aneurysm measures up to 5.[address] abdomen and pelvis without contrast: Image reviewed: Mild left hydronephrosis is identified. The left ureter has a normal caliber. No evidence of renal stones or masses. An obstructive uropathy is possible. There is no evidence of obstruction or enteritis, Significant fecal debris throughout the colon was consistent with constipation. Sepsis ruled out Empyema ruled out I discussed the case with radiology today, patient had ultrasound of his lungs to have a complete resolution of pleural effusions. Therefore it is more likely due to CHF and could not have been a loculated effusion as was previously stated. Discontinue antibiotics today Acute hypoxic respiratory failure Due to CHF exacerbation, continue oxygen supplementation, continue Lasix COPD nebs, steroids and abx Acute exacerbation of systolic CHF Continue IV Lasix, Hypertension cont home meds Cardiac: Coronary artery disease/A. fib HR fairly controlled, continue meds cardiology consult dig level 0.4 continue Dig, B-Bl and MARIBEL non compliant with Anticoagulation Severe Malnutrition Trial Paralegal consult, encourage balanced diet Chronic back pain Pain meds as needed Opioid dependence cont pain meds Complete immobility due to Frailty PT ordered, continue supportive care, due to multiple falls, patient is not a candidate for anticoagulation for A. fib Failure to thrive Continue supportive care DVT ppx lovenox This patient is non compliant, and very frail, unable to care for himself, he would benefit from SNF placement, PT, OT May benefit from Hospice since his main concern now is pain management, Patient has adamantly refused SNF placement, he was told that he is at risk for falling at home and at risk for serious fracture including hip fracture, intracranial hemorrhage. And he adamantly refused SNIF placement. He would like to go home with services. History Interval history: He denies shortness of breath or chest pain is complaining of chronic back pain only. He complains of multiple falls He had a fall this morning after coming back from radiology, he fell on his bottom and states he is having buttock pain This and lower back pain. Pain is dull, 4 out of 10 nonradiating. Hospitalist Physical - Physical exam Narrative exam: General: Appears chronically ill, frail HEENT: MMM, EOMI cardiac: S1-S2 heard lungs: Reduced air entry in the bases abdomen: soft, nontender, nondistended bowel sounds positive extremities: no edema clubbing or cyanosis Skin: no rash or lesion Neuro: no focal deficit Psych: appropriate behavior and mood, cognition intact - Constitutional Vitals: Temp Pulse Resp BP Pulse Ox 97.6 F 112 H 20 99/56 95 06/01/17 05:00 06/01/17 07:43 06/01/17 07:43 06/01/17 05:00 06/01/17 07:38 General appearance: Present: other (patient appears chronically ill and emaciated. In distress due to his left lower chest pain from his fall) Results - Labs CBC & Chem 7: 05/31/17 05:49 05/31/17 05:49 Labs: Laboratory Last Values WBC 13.0 K/mm3 (4.5-11.0) H 05/31/17 05:49 RBC 4.31 M/mm3 (3.65-5.03) 05/31/17 05:49 Hgb 8.4 gm/dl (11.8-15.2) L 05/31/17 05:49 Hct 28.9 % (35.5-45.6) L 05/31/17 05:49 MCV 67 fl (84-94) L 05/31/17 05:49 MCH 20 pg (28-32) L 05/31/17 05:49 MCHC 29 % (32-34) L 05/31/17 05:49 RDW 23.3 % (13.2-15.2) H 05/31/17 05:49 Plt Count 219 K/mm3 (140-440) 05/31/17 05:49 Add Manual Diff Complete 05/31/17 05:49 Total Counted 100 05/31/17 05:49 Seg Neuts % (Manual) 75.0 % (40.0-70.0) H 05/31/17 05:49 Band Neutrophils % 10.0 % 05/31/17 05:49 Lymphocytes % (Manual) 3.0 % (13.4-35.0) L 05/31/17 05:49 Reactive Lymphs % (Man) 0 % 05/31/17 05:49 Monocytes % (Manual) 9.0 % (0.0-7.3) H 05/31/17 05:49 Eosinophils % (Manual) 0 % (0.0-4.3) 05/31/17 05:49 Basophils % (Manual) 0 % (0.0-1.8) 05/31/17 05:49 Metamyelocytes % 3.0 % 05/31/17 05:49 Myelocytes % 0 % 05/31/17 05:49 Promyelocytes % 0 % 05/31/17 05:49 Blast Cells % 0 % 05/31/17 05:49 Nucleated RBC % 2.0 % (0.0-0.9) H 05/31/17 05:49 Seg Neutrophils # Man 9.8 K/mm3 (1.8-7.7) H 05/31/17 05:49 Band Neutrophils # 1.3 K/mm3 05/31/17 05:49 Lymphocytes # (Manual) 0.4 K/mm3 (1.2-5.4) L 05/31/17 05:49 Abs React Lymphs (Man) 0.0 K/mm3 05/31/17 05:49 Monocytes # (Manual) 1.2 K/mm3 (0.0-0.8) H 05/31/17 05:49 Eosinophils # (Manual) 0.0 K/mm3 (0.0-0.4) 05/31/17 05:49 Basophils # (Manual) 0.0 K/mm3 (0.0-0.1) 05/31/17 05:49 Metamyelocytes # 0.4 K/mm3 05/31/17 05:49 Myelocytes # 0.0 K/mm3 05/31/17 05:49 Promyelocytes # 0.0 K/mm3 05/31/17 05:49 Blast Cells # 0.0 K/mm3 05/31/17 05:49 WBC Morphology Not Reportable 05/31/17 05:49 Hypersegmented Neuts Not Reportable 05/31/17 05:49 Hyposegmented Neuts Not Reportable 05/31/17 05:49 Hypogranular Neuts Not Reportable 05/31/17 05:49 Smudge Cells Not Reportable 05/31/17 05:49 Toxic Granulation Not Reportable 05/31/17 05:49 Toxic Vacuolation Not Reportable 05/31/17 05:49 Dohle Bodies Not Reportable 05/31/17 05:49 Pelger-Huet Anomaly Not Reportable 05/31/17 05:49 Grabiel Rods Not Reportable 05/31/17 05:49 Platelet Estimate Consistent w auto 05/31/17 05:49 Clumped Platelets Not Reportable 05/31/17 05:49 Plt Clumps, EDTA Not Reportable 05/31/17 05:49 Large Platelets Not Reportable 05/31/17 05:49 Giant Platelets Not Reportable 05/31/17 05:49 Platelet Satelliting Not Reportable 05/31/17 05:49 Plt Morphology Comment Not Reportable 05/31/17 05:49 RBC Morphology Not Reportable 05/31/17 05:49 Dimorphic RBCs Not Reportable 05/31/17 05:49 Polychromasia Rare 05/31/17 05:49 Hypochromasia 1+ 05/31/17 05:49 Poikilocytosis Not Reportable 05/31/17 05:49 Anisocytosis 1+ 05/31/17 05:49 Microcytosis Not Reportable 05/31/17 05:49 Macrocytosis Not Reportable 05/31/17 05:49 Spherocytes Not Reportable 05/31/17 05:49 Pappenheimer Bodies Not Reportable 05/31/17 05:49 Sickle Cells Not Reportable 05/31/17 05:49 Target Cells Not Reportable 05/31/17 05:49 Tear Drop Cells Not Reportable 05/31/17 05:49 Ovalocytes Not Reportable 05/31/17 05:49 Helmet Cells Not Reportable 05/31/17 05:49 [place] Bodies Not Reportable 05/31/17 05:49 [place] Rings Not Reportable 05/31/17 05:49 Anthon Cells Not Reportable 05/31/17 05:49 Bite Cells Not Reportable 05/31/17 05:49 Crenated Cell Not Reportable 05/31/17 05:49 Elliptocytes Not Reportable 05/31/17 05:49 Acanthocytes (Spur) Not Reportable 05/31/17 05:49 Rouleaux Not Reportable 05/31/17 05:49 Hemoglobin C Crystals Not Reportable 05/31/17 05:49 Schistocytes Rare 05/31/17 05:49 Malaria parasites Not Reportable 05/31/17 05:49 Tacho Bodies Not Reportable 05/31/17 05:49 Hem Pathologist Commnt No 05/31/17 05:49 PT 15.5 Sec. (12.2-14.9) H 05/31/17 08:08 INR 1.17 (0.87-1.13) H 05/31/17 08:08 POC ABG pH 7.397 (7.35-7.45) 05/30/17 01:55 POC ABG pCO2 35.4 (35-45) 05/30/17 01:55 POC ABG pO2 77 (80-105) L 05/30/17 01:55 POC ABG HCO3 21.8 05/30/17 01:55 POC ABG Total CO2 23 05/30/17 01:55 POC ABG O2 Sat 95 05/30/17 01:55 POC ABG Base Excess -3 05/30/17 01:55 FiO2 21 % 05/30/17 01:55 Sodium 141 mmol/L (137-145) 05/31/17 05:49 Potassium 4.7 mmol/L (3.6-5.0) 05/31/17 05:49 Chloride 106.3 mmol/L (98-107) 05/31/17 05:49 Carbon Dioxide 19 mmol/L (22-30) L 05/31/17 05:49 Anion Gap 20 mmol/L 05/31/17 05:49 BUN 20 mg/dL (9-20) 05/31/17 05:49 Creatinine 0.9 mg/dL (0.8-1.5) 05/31/17 05:49 Estimated GFR > 60 ml/min 05/31/17 05:49 BUN/Creatinine Ratio 22.22 % 05/31/17 05:49 Glucose 160 mg/dL (75-100) H 05/31/17 05:49 Lactic Acid 1.80 mmol/L (0.7-2.0) 05/30/17 07:13 Calcium 7.8 mg/dL (8.4-10.2) L 05/31/17 05:49 Total Bilirubin 1.10 mg/dL (0.1-1.2) 05/30/17 01:07 AST 19 units/L (5-40) 05/30/17 01:07 ALT 10 units/L (7-56) 05/30/17 01:07 Alkaline Phosphatase 98 units/L (35-129) 05/30/17 01:07 Lactate Dehydrogenase 333 units/L (91-180) H 05/30/17 17:11 Troponin T < 0.010 ng/mL (0.00-0.029) 05/30/17 01:07 C-Reactive Protein 7.10 mg/dL (0.00-1.30) H 05/30/17 17:11 NT-Pro-B Natriuret Pep 2333 pg/mL (0-900) H 05/30/17 01:07 Total Protein 5.1 g/dL (6.3-8.2) L 05/30/17 01:07 Albumin 2.5 g/dL (3.9-5) L 05/30/17 01:07 Albumin/Globulin Ratio 1.0 % 05/30/17 01:07 Urine Color Mary Anne (Yellow) 05/30/17 19:05 Urine Turbidity Clear (Clear) 05/30/17 19:05 Urine pH 5.0 (5.0-7.0) 05/30/17 19:05 Ur Specific [place] 1.024 (1.003-1.030) 05/30/17 19:05 Urine Protein 30 mg/dl mg/dL (Negative) 05/30/17 19:05 Urine Glucose (UA) Neg mg/dL (Negative) 05/30/17 19:05 Urine Ketones Neg mg/dL (Negative) 05/30/17 19:05 Urine Blood Neg (Negative) 05/30/17 19:05 Urine Nitrite Neg (Negative) 05/30/17 19:05 Urine Bilirubin Neg (Negative) 05/30/17 19:05 Urine Urobilinogen 2.0 mg/dL (<2.0) 05/30/17 19:05 Ur Leukocyte Esterase Neg (Negative) 05/30/17 19:05 Urine WBC (Auto) 1.0 /HPF (0.0-6.0) 05/30/17 19:05 Urine RBC (Auto) 1.0 /HPF (0.0-6.0) 05/30/17 19:05 Urine Mucus Few /HPF 05/30/17 19:05 Digoxin 0.4 ng/mL (0.9-2.0) L 05/30/17 17:11
[2017-06-01] MEDS ORDERED: OxyCONTIN PO SCH (10:00)
[2017-06-01] MEDS: VANCOMYCIN/NS 1 GM/250 ML 1 GM/250 ML BAG IV SCH (10:08)
--- NOTE | 2017-06-01 10:34 | Progress Note ---
Assessment and Plan Assessment: Acute on chronic systolic heart failure EF 30% Echo 09/2016: EF 30%, severe biatrial dilatation, mild to moderate TR, moderate pulmonary HTN, RVSP 47mmHg Continue PO lasix, lopressor, lisinopril Persistent atrial fibrillation with variable ventricular response continue digoxin (dig level on admission subtherapeutic at 0.4) increase lopressor to 25mg PO TID. Pt. is poor candidate for systemic anticoagulation at this time in setting of noncompliance, high risk for falls, and multiple co-morbidities Sepsis / leukocytosis / possible empyema Anemia Dilated NICMP COPD Hypertension PUD, s/p colectomy Chronic lymphocytic leukemia Pulmonary HTN H/o seizures Noncompliance Plan: Increase lopressor to 25mg PO TID. Cont digoxin. Pt. is poor candidate for systemic anticoagulation at this time in setting of noncompliance, high risk for falls, and multiple co-morbidities Overall prognosis is guarded due to multiple medical issues. The patient has been seen in conjunction with Dr. Short who agrees with the assessment and plan of care. Subjective Date of service: 06/01/17 Principal diagnosis: AFib RVR Interval history: Pt resting in bed, c/o dyspnea with minimal exertion. Remains in AFib with variable ventricular response. Objective Last Vital Signs Temp 98.0 F 06/01/17 11:00 Pulse 94 H 06/01/17 11:00 Resp 24 06/01/17 11:00 BP 108/77 06/01/17 11:00 Pulse Ox 99 06/01/17 11:00 - Physical Examination General: No Apparent Distress, Other (appears chronically ill) HEENT: Positive: PERRL Neck: Positive: neck supple Cardiac: Positive: irregularly irregular, S1/S2 Lungs: Positive: Rhonchi Neuro: Positive: Grossly Intact Abdomen: Positive: Soft Skin: Positive: Clear Extremities: Present: Other (no edema or calf tenderness) - Telemetry EKG Rhythm: Atrial Fibrillation
--- NOTE | 2017-06-01 11:03 | Ultrasound Report ---
ULTRASOUND CHEST History: Loculated left pleural effusion. Findings: This procedure was scheduled as an ultrasound guided left thoracentesis. Initial scans of the left chest demonstrate resolution of the left pleural effusion since the CT dated 05/30/17. Left thoracentesis was not performed. Impression: Resolved left pleural effusion. See above.
[2017-06-01] MEDS: HALFPRIN EC PO SCH (11:08)
[2017-06-01] MEDS: FEOSOL PO SCH (11:08)
[2017-06-01] MEDS: ZESTRIL PO SCH (11:08)
[2017-06-01] MEDS: LOVENOX SUB-Q SCH (11:09)
[2017-06-01] MEDS: PEPCID PO SCH ×2 (11:09→22:45)
[2017-06-01] MEDS: LOPRESSOR PO SCH ×2 (11:21→19:04)
--- NOTE | 2017-06-01 11:41 | Consultation ---
History of Present Illness - Reason for Consult Consult date: 06/01/17 - History of Present Illness 72 y.o. male who presents secondary to productive cough, fever, shortness of breath; also with history of fall onto left side prior to admission. Work-up notable for bilateral pleural thickening with effusions, loculated on the left; currently being treated for sepsis due to possible empyema; CT guided thoracentesis ordered/pending. Pt reports history of chronic back pain with neuropathy (right leg>left) for many years due to work related injuries; seen in pain management clinic in the past, however, is unclear as to the last time he was seen. On today, he states that he takes Fallon 10/325 prn; only when pain level is high. It is noted on chart review that patient was started on Oxycontin 20mg this morning; noted to have some drowsiness during visit. Consult placed for pain management. Past History Past Medical History: atrial fib, CAD, COPD, heart failure, hypertension, seizures Past Surgical History: cholecystectomy, tonsillectomy, bowel surgery, Other (hx of some type of gastric surgery he can not recall 30 years ago/poor historian) Social history: , lives with family. denies: smoking Family history: CAD, hypertension Medications and Allergies Allergies Allergy/AdvReac Type Severity Reaction Status Date / Time albuterol Allergy Shortness Verified 02/20/17 17:27 of Breath Home Medications Medication Instructions Recorded Confirmed Last Taken Type Ferrous Sulfate [Iron Supplement 325 mg PO DAILY 06/08/16 06/01/17 1 Day Ago History 325 Mg tab] Famotidine [Pepcid] 20 mg PO BID #60 tablet 02/25/17 06/01/17 1 Day Ago Rx Digoxin [Lanoxin] 0.125 mg PO DAILY@1700 #30 tablet 03/08/17 06/01/17 1 Day Ago Rx Metoprolol Xl [Metoprolol 75 mg PO QDAY #90 tablet 03/08/17 06/01/17 1 Day Ago Rx SUCCINATE ER TAB] ALPRAZolam [Xanax TAB] 1 mg PO BID PRN #7 tablet 04/16/17 06/01/17 1 Day Ago Rx Aspirin EC [Aspirin Enteric Coated 81 mg PO QDAY #30 tablet. 04/16/17 1 Day Ago Rx TAB] Furosemide [Lasix TAB] 40 mg PO QDAY tablet 04/16/17 06/01/17 1 Day Ago Rx Gabapentin [Neurontin] 100 mg PO Q8HR capsule 04/16/17 06/01/17 1 Day Ago Rx Ipratropium [Atrovent NEB] 0.5 mg IH Q6HRT nebu 04/16/17 06/01/17 1 Day Ago Rx Levalbuterol 1.25 [Xopenex] 1.25 mg IH Q6HRT nebu 04/16/17 06/01/17 1 Day Ago Rx Lisinopril [Zestril TAB] 10 mg PO QDAY tablet 04/16/17 06/01/17 1 Day Ago Rx Active Meds: Active Medications Acetaminophen (Tylenol) 650 mg PO Q4H PRN PRN Reason: Pain MILD(1-3)/Fever >100.5/[place] Last Admin: 05/30/17 07:08 Dose: 650 mg Alprazolam (Xanax) 1 mg PO BID PRN PRN Reason: Anxiety Last Admin: 05/30/17 20:21 Dose: 1 mg Arformoterol Tartrate (Brovana Nebu) 15 mcg IH Q12HRT [facility] Last Admin: 06/01/17 07:32 Dose: 15 mcg Aspirin (Halfprin Ec) 81 mg PO QDAY [facility] Last Admin: 06/01/17 11:08 Dose: 81 mg Bisacodyl (Dulcolax) 10 mg HI QDAY PRN PRN Reason: Constipation unrelieved by MOM Budesonide (Pulmicort) 0.5 mg IH Q12HRT [facility] Last Admin: 06/01/17 07:32 Dose: 0.5 mg Digoxin (Lanoxin) 0.125 mg PO DAILY@1700 [facility] Last Admin: 05/31/17 15:59 Dose: 0.125 mg Enoxaparin Sodium (Lovenox) 40 mg SUB-Q QDAY@1000 [facility] Last Admin: 06/01/17 11:09 Dose: 40 mg Famotidine (Pepcid) 20 mg PO BID [facility] Last Admin: 06/01/17 11:09 Dose: 20 mg Ferrous Sulfate (Feosol) 325 mg PO DAILY [facility] Last Admin: 06/01/17 11:08 Dose: 325 mg Furosemide (Lasix) 40 mg PO Q48H [facility] Last Admin: 05/31/17 11:42 Dose: 40 mg Gabapentin (Neurontin) 100 mg PO Q8HR [facility] Last Admin: 06/01/17 05:56 Dose: 100 mg Hydromorphone HCl (Dilaudid) 1 mg IV Q4H PRN PRN Reason: Pain Stop: 06/01/17 15:50 Last Admin: 05/31/17 15:59 Dose: 1 mg Piperacillin Sod/Tazobactam Sod (Zosyn/Ns 3.375gm/50ml) 3.375 gm in 50 mls @ 100 mls/hr IV Q6HR [facility] Last Admin: 06/01/17 06:49 Dose: 100 mls/hr Vancomycin HCl (Vancomycin/Ns 1 Gm/250 Ml) 1 gm in 250 mls @ 166.667 mls/hr IV Q12H [facility] Last Admin: 05/31/17 23:26 Dose: 166.667 mls/hr Ipratropium [place] (Atrovent) 0.5 mg IH Q6HRT [facility] Last Admin: 06/01/17 01:40 Dose: 0.5 mg Levalbuterol HCl (Xopenex) 0.63 mg IH Q6HRT [facility] Last Admin: 06/01/17 01:40 Dose: 0.63 mg Lisinopril (Zestril) 10 mg PO QDAY [facility] Last Admin: 06/01/17 11:08 Dose: 10 mg Magnesium Hydroxide (Milk Of Magnesia) 30 ml PO Q4H PRN PRN Reason: Constipation Methylprednisolone Sodium Succinate (Solu-Medrol) 40 mg IV Q24HR [facility] Last Admin: 06/01/17 11:10 Dose: 40 mg Metoprolol Tartrate (Lopressor) 25 mg PO Q8H [facility] Last Admin: 06/01/17 11:21 Dose: 25 mg Morphine Sulfate (Morphine) 2 mg IV Q4H PRN PRN Reason: Pain, Moderate (4-6) Last Admin: 05/30/17 11:16 Dose: 2 mg Ondansetron HCl (Zofran) 4 mg IV Q8H PRN PRN Reason: N/V unrelieved by Reglan Oxycodone HCl (Oxycontin) 20 mg PO Q12HR [facility] Last Admin: 06/01/17 11:09 Dose: 20 mg Oxycodone/Acetaminophen (Percocet 5/325) 1 tab PO Q4H PRN PRN Reason: Pain, Moderate (4-6) Last Admin: 05/31/17 08:57 Dose: 1 tab Vancomycin HCl (Vancomycin Pharmacy To Dose) 1 each IV PKCONSULT LUIS PRN Reason: Protocol Review of Systems All systems: negative Cardiovascular: chest pain (intermittent) Respiratory: shortness of breath Genitourinary Male: other (kebede in place) Musculoskeletal: low back pain Exam - Constitutional Vitals: Temp Pulse Resp BP Pulse Ox 97.6 F 112 H 20 99/56 95 06/01/17 05:00 06/01/17 07:43 06/01/17 07:43 06/01/17 05:00 06/01/17 07:38 General appearance: Present: no acute distress - EENT Eyes: Present: EOM intact ENT: hearing intact, poor dentition - Neck Neck: Present: supple, normal ROM - Respiratory Respiratory effort: normal Respiratory: bilateral: CTA - Cardiovascular Heart Sounds: Present: S1 & S2 (tachy) - Extremities Extremities: No edema Extremity abnormal: other (bruising noted at bilateral UE) - Abdominal General gastrointestinal: Present: soft, tender, normal bowel sounds - Psychiatric Psychiatric: appropriate mood/affect, cooperative - Neurologic Neurologic: CNII-XII intact, moves all extremities (3/5 BLE, 4/5 BUE), other ( sensation grossly intact) Results - Labs CBC & Chem 7: 05/31/17 05:49 05/31/17 05:49 Assessment and Plan 72 y.o. male with sepsis due to empyema on ABX; pending CT guided thoracentesis. Pt also with history of chronic low back pain with peripheral neuropathy (possible spinal stenosis), likely with increased pain due to recent fall; denies any history of back surgeries. Medications reviewed in chart and with patient; home med reported to be Fallon 10/325 prn. During visit, pt noted to be somewhat delayed with responses at times and admitted to some drowsiness; would recommend reducing dose to Oxycontin 10mg BID and follow for improved alertness. If patient remains drowsy, would discontinue Oxycontin and resume home dose of Fallon. Also follow for adequate bowel movements; add Colace for now; add prn laxative if no BM Q2-3 days. Continue current dose of Neurontin for peripheral neuropathy. Ongoing management per IM, Cardiology, Pulmonology. Will continue to follow. Thank you for consultation. - Patient Problems (1) Low back pain Current Visit: Yes Status: Chronic Qualifiers: Chronicity: chronic Back pain laterality: right Sciatica presence: with sciatica Sciatica laterality: sciatica of right side Qualified Code(s): M54.41 - Lumbago with sciatica, right side; G89.29 - Other chronic pain (2) Peripheral neuropathy Current Visit: Yes Status: Acute Qualifiers: Peripheral neuropathy type: polyneuropathy associated with underlying disease Qualified Code(s): G63 - Polyneuropathy in diseases classified elsewhere (3) COPD (chronic obstructive pulmonary disease) Current Visit: Yes Status: Chronic Qualifiers: COPD type: C Chronic bronchitis type: C Emphysema type: E
--- NOTE | 2017-06-01 13:39 | XRay Report ---
BILATERAL HIP RADIOGRAPHS WITH PELVIS INDICATION: Fall, pelvic and sacral pain. COMPARISON: None similar. FINDINGS: An AP pelvic radiograph with frog-leg projection of bilateral hips demonstrate normal femoral head contours bilaterally. Imaged bilateral SI and hip joints appear intact. Demineralized bones. Mild lower lumbar degenerative changes possible. Extensive colonic and rectosigmoid stool/possible constipation. CONCLUSION: No acute hip radiographic abnormality with various other findings, including constipation, as described. Please correlate. Thank you for the opportunity to participate in this patient's care.
--- NOTE | 2017-06-01 13:41 | XRay Report ---
LUMBOSACRAL SPINE, 3 VIEWS: History: Low back pain, sacral pain, fall. Findings: Osteopenia is evident. There is moderate levoscoliosis of the lumbar spine on the AP view. There is normal height and alignment on the lateral view. Mild multilevel degenerative disc disease and facet arthropathy are identified. No compression deformity or subluxation. The lower sacrum is incompletely imaged on this exam secondary to stool in the rectum. No gross sacral abnormality. Impression: Limited evaluation of the sacrum. Levoscoliosis with degenerative changes. Osteopenia. No acute injury is appreciated on x-ray.
--- NOTE | 2017-06-01 13:44 | Progress Note ---
Assessment and Plan Assessment: 1) Sepsis: improving. Etiology - secondary to pneumonia. 2) Complicated left-sided pneumonia with presumed loculated pleural effusion ? HCAP ? aspiration. CRP 7. 3) COPD 4) CHF 5) Opioid dependence Plan: -IR-guided thoracentesis - pending -may need CT surgery eval -follow-up blood cultures -continue zosyn and vancomycin-duration to be determined Thank you Dr Frank for your consultation, will follow up with you. Anjana Schmid MD Infectious Diseases Specialist [facility] ([facility]) [phone] O [phone] Subjective Date of service: 06/01/17 Principal diagnosis: AFib RVR Interval history: Feels better, eating ok. No complaints. No fever, Tmax 99. Current Antimicrobials: 05/30 Zosyn 05/30 Vancomycin Previous Antimicrobials: 05/30 levaquin Microbiology: Blood cultures: 05/30 NGTD Objective - Exam Narrative Exam: General appearance: Alert in NAD, conversant Eyes: anicteric sclerae, moist conjunctivae; PERRLA HENT: Atraumatic; +edentulous, oropharynx clear with moist mucous membranes and no mucosal ulcerations/no oral thrush; normal hard and soft palate. Normal external ears. Neck: Trachea midline; supple, no thyromegaly or lymphadenopathy Lungs: +bilateral crackles + decreased BS to the left CV: tachy Abdomen: Soft, non-tender; no masses or hepatosplenomegaly, +old midline surgical scar Extremities: No peripheral edema or extremity lymphadenopathy Skin: +multiple bilateral arms ecchymoses and skin tears. +left nasal ucler. Psych: Appropriate affect, alert and oriented to person, place and time. Neuro: alert and oriented x 3. Moving all extermities Lines: No CVL / PICC - Constitutional Vitals: Vital Signs Temp Pulse Resp BP Pulse Ox 98.0 F 94 H 24 108/77 99 06/01/17 11:00 06/01/17 11:00 06/01/17 11:00 06/01/17 11:00 06/01/17 11:00 Temperature -Last 24 Hours Temperature 98.0 F Temperature 97.6 F Temperature 97.9 F Temperature 97.4 F Temperature 98.5 F - Labs CBC & Chem 7: 05/31/17 05:49 05/31/17 05:49
--- NOTE | 2017-06-01 16:34 | Progress Note ---
Assessment and Plan Patient alert, awake, confused. agitating. No acute respiratory distress.Patient is on room air. O2 saturation 95%. - Patient Problems (1) Chest pain Current Visit: Yes Status: Acute Qualifiers: Chest pain type: C Ischemic chest pain type: I Plan to address problem: Management as per primary care and cardiology. (2) COPD (chronic obstructive pulmonary disease) Current Visit: Yes Status: Chronic Qualifiers: COPD type: C Chronic bronchitis type: C Emphysema type: E Plan to address problem: Continue Brovanna/budesonide aerosol treatments q 12 hours. Continue I/V solumedral. Continue S/C Lovenox Continue Pepcid. (3) Acute and chronic respiratory failure ([id number]) Current Visit: No Status: Acute Qualifiers: Respiratory failure complication: R Plan to address problem: Improved. Patient is on room air. O2 saturation 95%. Subjective Date of service: 06/01/17 Principal diagnosis: AFib RVR Interval history: Patient alert, awake, confused. agitating. No acute respiratory distress.Patient is on room air. O2 saturation 95%. Objective Vital Signs - 12hr 06/01/17 06/01/17 06/01/17 05:00 07:32 07:38 Temperature 97.6 F Pulse Rate 130 H Pulse Rate [ 98 H Anterior Bilateral Throughout] Pulse Rate [ Throughout] Respiratory 16 Rate Respiratory 22 Rate [Anterior Bilateral Throughout] Respiratory Rate [ Throughout] Blood Pressure 99/56 O2 Sat by Pulse 97 95 Oximetry 06/01/17 06/01/17 06/01/17 07:43 11:00 13:44 Temperature 98.0 F Pulse Rate 94 H Pulse Rate [ 112 H 108 H Anterior Bilateral Throughout] Pulse Rate [ 108 H Throughout] Respiratory 24 Rate Respiratory 20 20 Rate [Anterior Bilateral Throughout] Respiratory 20 Rate [ Throughout] Blood Pressure 108/77 O2 Sat by Pulse 99 Oximetry 06/01/17 13:55 Temperature Pulse Rate Pulse Rate [ 112 H Anterior Bilateral Throughout] Pulse Rate [ Throughout] Respiratory Rate Respiratory 20 Rate [Anterior Bilateral Throughout] Respiratory Rate [ Throughout] Blood Pressure O2 Sat by Pulse Oximetry Constitutional: no acute distress, alert, agitated Eyes: non-icteric ENT: oropharynx moist Neck: supple, no lymphadenopathy Ascultation: Bilateral: diminished breath sounds Cardiovascular: regular rate and rhythm Gastrointestinal: normoactive bowel sounds Integumentary: normal Extremities: no cyanosis, no edema Neurologic: unable to assess Psychiatric: other (Affect abnormal and flat.) CBC and BMP: 05/31/17 05:49 05/31/17 05:49 ABG, PT/INR, D-dimer: ABG POC ABG pH 7.397 (7.35-7.45) 05/30/17 01:55 POC ABG pCO2 35.4 (35-45) 05/30/17 01:55 POC ABG pO2 77 (80-105) L 05/30/17 01:55 POC ABG HCO3 21.8 05/30/17 01:55 POC ABG Total CO2 23 05/30/17 01:55 POC ABG O2 Sat 95 05/30/17 01:55 PT/INR, D-dimer PT 15.5 Sec. (12.2-14.9) H 05/31/17 08:08 INR 1.17 (0.87-1.13) H 05/31/17 08:08 Abnormal lab findings: Abnormal Labs 05/30/17 05/30/17 05/30/17 17:11 17:11 17:11 WBC Hgb Hct MCV MCH MCHC RDW Seg Neuts % (Manual) Lymphocytes % (Manual) Monocytes % (Manual) Nucleated RBC % Seg Neutrophils # Man Lymphocytes # (Manual) Monocytes # (Manual) PT INR Carbon Dioxide Glucose Calcium Lactate Dehydrogenase 333 H C-Reactive Protein 7.10 H Digoxin 0.4 L 05/31/17 05/31/17 05/31/17 05:49 05:49 08:08 WBC 13.0 H Hgb 8.4 L Hct 28.9 L MCV 67 L MCH 20 L MCHC 29 L RDW 23.3 H Seg Neuts % (Manual) 75.0 H Lymphocytes % (Manual) 3.0 L Monocytes % (Manual) 9.0 H Nucleated RBC % 2.0 H Seg Neutrophils # Man 9.8 H Lymphocytes # (Manual) 0.4 L Monocytes # (Manual) 1.2 H PT 15.5 H INR 1.17 H Carbon Dioxide 19 L Glucose 160 H Calcium 7.8 L Lactate Dehydrogenase C-Reactive Protein Digoxin Chest x-ray: report reviewed (COPD with fibrosis.), image reviewed
[2017-06-01] MEDS: LANOXIN PO SCH (18:03)
[2017-06-01] MEDS: XANAX PO PRN (22:44)
[2017-06-01] MEDS: OxyCONTIN PO SCH (22:45)
[2017-06-02] MEDS: LOPRESSOR PO SCH ×3 (02:10→17:50)
[2017-06-02] MEDS: XOPENEX IH SCH ×4 (02:33→20:23)
[2017-06-02] MEDS: ATROVENT IH SCH ×4 (02:33→20:23)
[2017-06-02] MEDS: NEURONTIN PO SCH ×3 (06:03→21:47)
[2017-06-02] MEDS: PULMICORT IH SCH ×2 (08:14→20:23)
[2017-06-02] MEDS: BROVANA NEBU IH SCH ×2 (08:14→20:24)
[2017-06-02] MEDS: LASIX IV SCH ×2 (10:36→10:37)
[2017-06-02] MEDS: OxyCONTIN PO SCH ×2 (10:37→21:47)
[2017-06-02] MEDS: HALFPRIN EC PO SCH (10:38)
[2017-06-02] MEDS: FEOSOL PO SCH (10:38)
[2017-06-02] MEDS: LOVENOX SUB-Q SCH (10:39)
[2017-06-02] MEDS: ZESTRIL PO SCH (10:40)
[2017-06-02] MEDS: PEPCID PO SCH ×2 (10:40→21:47)
--- NOTE | 2017-06-02 10:41 | Progress Note ---
Assessment and Plan Assessment: Acute on chronic systolic heart failure EF 30% Echo 09/2016: EF 30%, severe biatrial dilatation, mild to moderate TR, moderate pulmonary HTN, RVSP 47mmHg Continue PO lasix, lopressor, lisinopril Persistent atrial fibrillation with variable ventricular response continue digoxin (dig level on admission subtherapeutic at 0.4). give additional dosage of IV digoxin today x 1. Repeat digoxin level in AM. increase lopressor to 25mg PO TID. Pt. is poor candidate for systemic anticoagulation at this time in setting of noncompliance, high risk for falls, and multiple co-morbidities Sepsis / leukocytosis / possible empyema Anemia Dilated NICMP COPD Hypertension PUD, s/p colectomy Chronic lymphocytic leukemia Pulmonary HTN H/o seizures Noncompliance Plan: Cont lopressor to 25mg PO TID. Give additional dosage of IV digoxin today x 1. Repeat digoxin level in AM. Pt. is poor candidate for systemic anticoagulation at this time in setting of noncompliance, high risk for falls, and multiple co-morbidities Overall prognosis is guarded due to multiple medical issues. The patient has been seen in conjunction with Dr. Dick Biswas who agrees with the assessment and plan of care. Subjective Date of service: 06/02/17 Principal diagnosis: AFib RVR Interval history: Pt resting in bed, confused, restrained. Remains in AFib with RVR, HR 110s - 120s. BPs stable. Objective Last Vital Signs Temp 98.7 F 06/02/17 09:43 Pulse 113 H 06/02/17 09:43 Resp 20 06/02/17 09:43 BP 115/84 06/02/17 09:43 Pulse Ox 97 06/02/17 09:43 - Physical Examination General: Other (confused) HEENT: Positive: PERRL Neck: Positive: neck supple Cardiac: Positive: irregularly irregular, Tachycardia Lungs: Positive: Decreased Breath Sounds, Rhonchi Neuro: Positive: Grossly Intact, Other (confused ) Abdomen: Positive: Soft, Active Bowel Sounds. Negative: Tender Skin: Positive: Clear, Rash Musculoskeletal: No Fluid Collection, No Pain, Normal Range of Motion Extremities: Absent: edema
[2017-06-02] MEDS ORDERED: LANOXIN IV ONE (11:00)
[2017-06-02] MEDS: LASIX PO SCH (12:09)
--- NOTE | 2017-06-02 13:11 | Progress Note ---
Assessment and Plan Assessment: 1) Sepsis: improving. Etiology - secondary to pneumonia. 2) Complicated left-sided pneumonia with presumed loculated pleural effusion ? HCAP ? aspiration. CRP 7. 3) COPD on Brovanna/budesonide, I/V solumedral. 4) CHF 5) Opioid dependence Plan: -IR-guided thoracentesis - pending -may need CT surgery eval -continue zosyn and vancomycin-duration to be determined Thank you Dr Valencia for your consultation, will follow up with you. Anjana Schmid MD Infectious Diseases Specialist [facility] ([facility]) M [phone] O [phone] Subjective Date of service: 06/02/17 Principal diagnosis: AFib RVR Interval history: Feels better, eating ok. No complaints. No fever, Tmax 98. Current Antimicrobials: 05/30 Zosyn 05/30 Vancomycin Previous Antimicrobials: 05/30 levaquin Microbiology: Blood cultures: 05/30 NGTD Objective - Constitutional Vitals: Vital Signs Temp Pulse Resp BP Pulse Ox 98.7 F 160 H 20 115/84 97 06/02/17 09:43 06/02/17 12:09 06/02/17 11:37 06/02/17 09:43 06/02/17 10:00 Temperature -Last 24 Hours Temperature 98.7 F Temperature 97.6 F Temperature 97.9 F - Labs CBC & Chem 7: 05/31/17 05:49 05/31/17 05:49
--- NOTE | 2017-06-02 13:11 | Progress Note ---
Assessment and Plan Patient alert, awake,Still confused. agitating. No acute respiratory distress.Patient is on room air. O2 saturation 97%. - Patient Problems (1) Chest pain Current Visit: Yes Status: Acute Plan to address problem: Management as per primary care and cardiology. (2) COPD (chronic obstructive pulmonary disease) Current Visit: Yes Status: Chronic Plan to address problem: Continue Brovanna/budesonide aerosol treatments q 12 hours. Continue I/V solumedral. Continue S/C Lovenox Continue Pepcid. (3) Acute and chronic respiratory failure ([id number]) Current Visit: No Status: Acute Plan to address problem: Improved. Patient is on room air. O2 saturation 95%. Subjective Date of service: 06/02/17 Principal diagnosis: AFib RVR Interval history: Patient alert, awake, still confused. agitating. No acute respiratory distress.Patient is on room air. O2 saturation 97%. Objective Vital Signs - 12hr 06/02/17 06/02/17 06/02/17 02:20 02:32 04:44 Temperature Pulse Rate 140 H Pulse Rate [ 89 93 H Anterior Bilateral Throughout] Pulse Rate [ Left Radial] Respiratory Rate Respiratory 22 18 Rate [Anterior Bilateral Throughout] Respiratory Rate [Back] Respiratory Rate [Bilateral Leg] Respiratory Rate [Chest] Respiratory Rate [ Generalized] Respiratory Rate [Left Flank] Blood Pressure O2 Sat by Pulse Oximetry 06/02/17 06/02/17 06/02/17 08:12 08:15 08:18 Temperature Pulse Rate Pulse Rate [ 113 H Anterior Bilateral Throughout] Pulse Rate [ Left Radial] Respiratory Rate Respiratory 18 Rate [Anterior Bilateral Throughout] Respiratory Rate [Back] Respiratory Rate [Bilateral Leg] Respiratory Rate [Chest] Respiratory Rate [ Generalized] Respiratory Rate [Left Flank] Blood Pressure O2 Sat by Pulse 97 97 Oximetry 06/02/17 06/02/17 06/02/17 08:28 09:43 10:00 Temperature 98.7 F Pulse Rate 113 H Pulse Rate [ 114 H Anterior Bilateral Throughout] Pulse Rate [ 160 H Left Radial] Respiratory 20 20 Rate Respiratory 16 Rate [Anterior Bilateral Throughout] Respiratory 20 Rate [Back] Respiratory 20 Rate [Bilateral Leg] Respiratory 20 Rate [Chest] Respiratory 20 Rate [ Generalized] Respiratory 20 Rate [Left Flank] Blood Pressure 115/84 O2 Sat by Pulse 97 97 Oximetry 06/02/17 06/02/17 06/02/17 10:37 11:25 11:37 Temperature Pulse Rate 160 H Pulse Rate [ Anterior Bilateral Throughout] Pulse Rate [ Left Radial] Respiratory 20 20 Rate Respiratory Rate [Anterior Bilateral Throughout] Respiratory Rate [Back] Respiratory Rate [Bilateral Leg] Respiratory Rate [Chest] Respiratory Rate [ Generalized] Respiratory Rate [Left Flank] Blood Pressure O2 Sat by Pulse Oximetry 06/02/17 12:09 Temperature Pulse Rate 160 H Pulse Rate [ Anterior Bilateral Throughout] Pulse Rate [ Left Radial] Respiratory Rate Respiratory Rate [Anterior Bilateral Throughout] Respiratory Rate [Back] Respiratory Rate [Bilateral Leg] Respiratory Rate [Chest] Respiratory Rate [ Generalized] Respiratory Rate [Left Flank] Blood Pressure O2 Sat by Pulse Oximetry Constitutional: no acute distress, alert, agitated Eyes: non-icteric ENT: oropharynx moist Neck: supple, no lymphadenopathy Ascultation: Bilateral: diminished breath sounds Cardiovascular: regular rate and rhythm Gastrointestinal: normoactive bowel sounds Integumentary: normal Extremities: no cyanosis, no edema Neurologic: unable to assess Psychiatric: other (Affect abnormal and flat.) CBC and BMP: 05/31/17 05:49 05/31/17 05:49 ABG, PT/INR, D-dimer: ABG POC ABG pH 7.397 (7.35-7.45) 05/30/17 01:55 POC ABG pCO2 35.4 (35-45) 05/30/17 01:55 POC ABG pO2 77 (80-105) L 05/30/17 01:55 POC ABG HCO3 21.8 05/30/17 01:55 POC ABG Total CO2 23 05/30/17 01:55 POC ABG O2 Sat 95 05/30/17 01:55 PT/INR, D-dimer PT 15.5 Sec. (12.2-14.9) H 05/31/17 08:08 INR 1.17 (0.87-1.13) H 05/31/17 08:08 Abnormal lab findings: Abnormal Labs 05/30/17 05/30/17 05/30/17 17:11 17:11 17:11 WBC Hgb Hct MCV MCH MCHC RDW Seg Neuts % (Manual) Lymphocytes % (Manual) Monocytes % (Manual) Nucleated RBC % Seg Neutrophils # Man Lymphocytes # (Manual) Monocytes # (Manual) PT INR Carbon Dioxide Glucose Calcium Lactate Dehydrogenase 333 H C-Reactive Protein 7.10 H Digoxin 0.4 L 05/31/17 05/31/17 05/31/17 05:49 05:49 08:08 WBC 13.0 H Hgb 8.4 L Hct 28.9 L MCV 67 L MCH 20 L MCHC 29 L RDW 23.3 H Seg Neuts % (Manual) 75.0 H Lymphocytes % (Manual) 3.0 L Monocytes % (Manual) 9.0 H Nucleated RBC % 2.0 H Seg Neutrophils # Man 9.8 H Lymphocytes # (Manual) 0.4 L Monocytes # (Manual) 1.2 H PT 15.5 H INR 1.17 H Carbon Dioxide 19 L Glucose 160 H Calcium 7.8 L Lactate Dehydrogenase C-Reactive Protein Digoxin
[2017-06-02] MEDS: VIBRAMYCIN PO SCH ×2 (14:25→21:47)
[2017-06-02] MEDS: LEVAQUIN PO SCH (14:25)
[2017-06-02 14:26] LABS: Mean Corpuscular HGB Conc 25 % (32-34); Mean Corpuscular Volume 76 fl (84-94); Platelet Count 331 K/mm3 (140-440); Red Blood Count 5.31 M/mm3 (3.65-5.03)
[2017-06-02 14:32] LABS: Hematocrit 40.2 % (35.5-45.6); Hemoglobin 10.1 gm/dl (11.8-15.2); Mean Corpuscular Hemoglobin 19 pg (28-32); Red Cell Distribution Width 24.6 % (13.2-15.2); White Blood Count 38.4 K/mm3 (4.5-11.0)
--- NOTE | 2017-06-02 16:29 | Progress Note ---
Assessment and Plan Sepsis - secondary to PNA, white count still elevated - will complete one week of abx Left pleural effusion Empyema ruled out Patient had ultrasound of his lungs and showed a complete resolution of pleural effusions. Therefore it is more likely due to CHF and could not have been a loculated effusion as was previously stated. Discontinued antibiotics yesterday, but ID recommended to completed one week abx Acute hypoxic respiratory failure Due to CHF exacerbation, continue oxygen supplementation, continue Lasix COPD nebs, steroids and abx Acute exacerbation of systolic CHF Continue IV Lasix, Hypertension cont home meds A. fib rate not controlled continue digoxin (dig level on admission subtherapeutic at 0.4). give additional dosage of IV digoxin today x 1. Repeat digoxin level in AM. increased lopressor to 25mg PO TID. Pt. is poor candidate for systemic anticoagulation at this time in setting of noncompliance, high risk for falls, and multiple co-morbidities Acute on chronic systolic heart failure EF 30% Echo 09/2016: EF 30%, severe biatrial dilatation, mild to moderate TR, moderate pulmonary HTN, RVSP 47mmHg Continue PO lasix, lopressor, lisinopril Severe Malnutrition Assistant Art Director consulted, encourage balanced diet Chronic back pain Pain meds as needed Opioid dependence cont pain meds Complete immobility due to Frailty PT ordered, continue supportive care, due to multiple falls, patient is not a candidate for anticoagulation for A. fib Failure to thrive Continue supportive care DVT ppx lovenox Brief History: 72-year-old man history of hypertension, CHF, coronary artery disease, COPD, A. fib, chronic back pain comes emergency room with complaint of cough productive of green sputum, fever and shortness of breath. He is stated he sustained a fall on the left side. At home he is unable to care for himself is not compliant with his medications. He does not complain with anticoagulation. He continues to deteriorate, and is in and out of hospital. The only med he seems to take when he is at home and his pain meds. CT chest, image reviewed, COPD with fibrosis and scarring in both lungs. Pleural thickening, a loculated effusion in the left lung. Slight pleural thickening and mild effusion right lung. No pneumothorax. If any acute sick aneurysm measures up to 5.[address] abdomen and pelvis without contrast: Image reviewed: Mild left hydronephrosis is identified. The left ureter has a normal caliber. No evidence of renal stones or masses. An obstructive uropathy is possible. There is no evidence of obstruction or enteritis, Significant fecal debris throughout the colon was consistent with constipation. This patient is non compliant, and very frail, unable to care for himself, he would benefit from SNF placement, PT, OT May benefit from Hospice since his main concern now is pain management, Patient has adamantly refused SNF placement, he was told that he is at risk for falling at home and at risk for serious fracture including hip fracture, intracranial hemorrhage. And he adamantly refused SNIF placement. He would like to go home with services. Subjective Date of service: 06/02/17 Principal diagnosis: AFib RVR Interval history: Patient seen and examined. Medical records and medication list reviewed. No acute event overnight noted by the RN. Patient denies any chest pain or difficulty breathing. his HR at 160s Discussed plan of care at bedside with patient. Objective - Exam Narrative Exam: General: Appears chronically ill, frail HEENT: MMM, EOMI cardiac: S1-S2 heard lungs: Reduced air entry in the bases abdomen: soft, nontender, nondistended bowel sounds positive extremities: no edema clubbing or cyanosis Skin: no rash or lesion Neuro: no focal deficit Psych: appropriate behavior and mood, cognition intact - Constitutional Vitals: Vital Signs - 12hr 06/02/17 06/02/17 06/02/17 04:44 08:12 08:15 Temperature Pulse Rate 140 H Pulse Rate [ 113 H Anterior Bilateral Throughout] Pulse Rate [ Left Radial] Respiratory Rate Respiratory 18 Rate [Anterior Bilateral Throughout] Respiratory Rate [Back] Respiratory Rate [Bilateral Leg] Respiratory Rate [Chest] Respiratory Rate [ Generalized] Respiratory Rate [Left Flank] Blood Pressure O2 Sat by Pulse 97 Oximetry 06/02/17 06/02/17 06/02/17 08:18 08:28 09:43 Temperature 98.7 F Pulse Rate 113 H Pulse Rate [ 114 H Anterior Bilateral Throughout] Pulse Rate [ Left Radial] Respiratory 20 Rate Respiratory 16 Rate [Anterior Bilateral Throughout] Respiratory Rate [Back] Respiratory Rate [Bilateral Leg] Respiratory Rate [Chest] Respiratory Rate [ Generalized] Respiratory Rate [Left Flank] Blood Pressure 115/84 O2 Sat by Pulse 97 97 Oximetry 06/02/17 06/02/17 06/02/17 10:00 10:37 11:25 Temperature Pulse Rate 160 H Pulse Rate [ Anterior Bilateral Throughout] Pulse Rate [ 160 H Left Radial] Respiratory 20 20 Rate Respiratory Rate [Anterior Bilateral Throughout] Respiratory 20 Rate [Back] Respiratory 20 Rate [Bilateral Leg] Respiratory 20 Rate [Chest] Respiratory 20 Rate [ Generalized] Respiratory 20 Rate [Left Flank] Blood Pressure O2 Sat by Pulse 97 Oximetry 06/02/17 06/02/17 06/02/17 11:37 12:09 14:15 Temperature Pulse Rate 160 H Pulse Rate [ 68 Anterior Bilateral Throughout] Pulse Rate [ Left Radial] Respiratory 20 Rate Respiratory 16 Rate [Anterior Bilateral Throughout] Respiratory Rate [Back] Respiratory Rate [Bilateral Leg] Respiratory Rate [Chest] Respiratory Rate [ Generalized] Respiratory Rate [Left Flank] Blood Pressure O2 Sat by Pulse Oximetry 06/02/17 06/02/17 14:23 14:40 Temperature 97.8 F Pulse Rate 73 Pulse Rate [ 99 H Anterior Bilateral Throughout] Pulse Rate [ Left Radial] Respiratory 73 H Rate Respiratory 16 Rate [Anterior Bilateral Throughout] Respiratory Rate [Back] Respiratory Rate [Bilateral Leg] Respiratory Rate [Chest] Respiratory Rate [ Generalized] Respiratory Rate [Left Flank] Blood Pressure 95/76 O2 Sat by Pulse 96 Oximetry - Labs CBC & Chem 7: 06/02/17 14:15 05/31/17 05:49 Labs: Abnormal lab results 06/02/17 Range/Units 14:15 WBC 38.4 H (4.5-11.0) K/mm3 RBC 5.31 H (3.65-5.03) M/mm3 Hgb 10.1 L (11.8-15.2) gm/dl MCV 76 L (84-94) fl MCH 19 L (28-32) pg MCHC 25 L (32-34) % RDW 24.6 H (13.2-15.2) %
[2017-06-02] MEDS: LANOXIN PO SCH (17:50)
[2017-06-02] MEDS: PERCOCET 5/325 PO PRN (23:39)
[2017-06-02] MEDS: XANAX PO PRN (23:39)
[2017-06-03] MEDS: LOPRESSOR PO SCH ×4 (01:30→21:16)
[2017-06-03] MEDS: NEURONTIN PO SCH ×3 (05:44→21:07)
[2017-06-03] MEDS: PERCOCET 5/325 PO PRN ×2 (05:45→20:35)
[2017-06-03] MEDS: XOPENEX IH SCH ×3 (09:17→20:21)
[2017-06-03] MEDS: BROVANA NEBU IH SCH ×2 (09:17→20:21)
[2017-06-03] MEDS: PULMICORT IH SCH ×2 (09:17→20:21)
[2017-06-03] MEDS: ATROVENT IH SCH ×3 (09:17→20:21)
[2017-06-03] MEDS: ZESTRIL PO SCH (09:47)
[2017-06-03] MEDS: OxyCONTIN PO SCH (09:47)
[2017-06-03] MEDS: VIBRAMYCIN PO SCH ×2 (09:48→21:07)
[2017-06-03] MEDS: LEVAQUIN PO SCH (09:48)
[2017-06-03] MEDS: LASIX PO SCH (09:48)
[2017-06-03] MEDS: HALFPRIN EC PO SCH (09:48)
[2017-06-03] MEDS: FEOSOL PO SCH (09:48)
[2017-06-03] MEDS: PEPCID PO SCH ×2 (09:49→21:07)
[2017-06-03] MEDS: LOVENOX SUB-Q SCH (09:53)
--- NOTE | 2017-06-03 10:03 | Event Note ---
Date: 06/03/17 In view of recent findings there is no role for Thoracic intervention, I will sign off.
--- NOTE | 2017-06-03 10:43 | Progress Note ---
Assessment and Plan Assessment: Acute on chronic systolic heart failure EF 30% with left pleural effusion Echo 09/2016: EF 30%, severe biatrial dilatation, mild to moderate TR, moderate pulmonary HTN, RVSP 47mmHg Continue PO lasix, lopressor, lisinopril Persistent atrial fibrillation with variable ventricular response continue digoxin (dig level on admission subtherapeutic at 0.4). give additional dosage of IV digoxin today x 1. Repeat digoxin level in AM. increase lopressor to 25mg PO TID. Pt. is poor candidate for systemic anticoagulation at this time in setting of noncompliance, high risk for falls, and multiple co-morbidities Sepsis / leukocytosis - empyema ruled out per primary Anemia Dilated NICMP COPD Hypertension PUD, s/p colectomy Chronic lymphocytic leukemia Pulmonary HTN H/o seizures Noncompliance Plan: Cont lopressor to 25mg PO TID. Titrate as tolerated. Cont PO digoxin. Pt. is poor candidate for systemic anticoagulation at this time in setting of noncompliance, high risk for falls, and multiple co-morbidities Overall prognosis is guarded due to multiple medical issues. The patient has been seen in conjunction with Dr. Short who agrees with the assessment and plan of care. Subjective Date of service: 06/03/17 Principal diagnosis: AFib RVR Interval history: Pt resting in bed, confused, restrained. Remains in AFib with variable ventricular response. Objective Last Vital Signs Temp 98.1 F 06/03/17 08:40 Pulse 82 06/03/17 09:35 Resp 18 06/03/17 09:35 BP 98/64 06/03/17 08:40 Pulse Ox 96 06/03/17 09:15 - Physical Examination General: Other (confused) HEENT: Positive: PERRL Neck: Positive: neck supple Cardiac: Positive: irregularly irregular, S1/S2, Tachycardia Lungs: Positive: Decreased Breath Sounds Neuro: Positive: Grossly Intact, Other (confused ) Abdomen: Positive: Soft, Active Bowel Sounds. Negative: Tender Skin: Positive: Clear, Rash Musculoskeletal: No Fluid Collection, No Pain, Normal Range of Motion Extremities: Absent: edema - Labs and Meds CBC 06/02/17 Range/Units 14:15 WBC 38.4 H (4.5-11.0) K/mm3 RBC 5.31 H (3.65-5.03) M/mm3 Hgb 10.1 L (11.8-15.2) gm/dl Hct 40.2 D (35.5-45.6) % Plt Count 331 (140-440) K/mm3 - Imaging and Cardiology EKG: image reviewed - Telemetry EKG Rhythm: Atrial Fibrillation
--- NOTE | 2017-06-03 11:32 | XRay Report ---
ROUTINE CHEST, TWO VIEWS: HISTORY: Shortness of breath, COPD. The lungs are hyperinflated with chronic interstitial changes consistent with moderate to severe COPD. There is no evidence for pneumonia. Mild cardiomegaly and small pleural effusions are suspected. No pneumothorax. The thoracic cage is grossly intact. IMPRESSION: COPD with superimposed mild CHF.
--- NOTE | 2017-06-03 11:40 | Event Note ---
Date: 06/03/17 F/U, chronic low back pain with peripheral neuropathy (?spinal stenosis). Pt is noted to be s/p fall and is now in restraints; +drowsiness and reported altered mental status since last visit. Will discontinue Oxycontin; continue prn Percocet and monitor for improved alertness. Continue Neurontin at current dose. Follow for adequate bowel movements while on narcotics. Will continue to follow.
[2017-06-03 12:03] LABS: Mean Corpuscular HGB Conc 28 % (32-34); Platelet Count 343 K/mm3 (140-440); Red Blood Count 5.69 M/mm3 (3.65-5.03)
[2017-06-03 12:10] LABS: BUN/Creatinine Ratio 26.66; Calcium 8.7 mg/dL (8.4-10.2); Potassium 4.9 mmol/L (3.6-5.0)
[2017-06-03 12:18] LABS: Mean Corpuscular Hemoglobin 19 pg (28-32); Mean Corpuscular Volume 69 fl (84-94); Red Cell Distribution Width 23.8 % (13.2-15.2); White Blood Count 32.8 K/mm3 (4.5-11.0)
--- NOTE | 2017-06-03 12:46 | Progress Note ---
Assessment and Plan Assessment: 1) Sepsis: improving. Noted leukocytosis up to 38K. Likely multi-factorial from IV steroids and CCL. Sepsis etiology - secondary to pneumonia. Procalcitonin<0.1 demonstrating no evidence of bacterial sepsis. 2) Complicated left-sided pneumonia with presumed loculated pleural effusion ? HCAP ? aspiration. CRP 7. Repeat CXR showed mild pulmonary edema monika. 3) COPD on Brovanna/budesonide, I/V solumedral. 4) CHF 5) Opioid dependence 6) CLL Plan: -continue doxycycline and levaquin PO to complete total 7 days from 05/30/17-06/[address] Valencia for your consultation, will follow up with you. Anjana Schmid MD Infectious Diseases Specialist [facility] M [phone] O [phone] Subjective Date of service: 06/03/17 Principal diagnosis: AFib RVR Interval history: Feels better. Denies SOB or cough. No complaints. No fever, Tmax 98. Current Antimicrobials: 05/30 Zosyn 05/30 Vancomycin Previous Antimicrobials: 05/30 levaquin Microbiology: Blood cultures: 05/30 NGTD Objective - Exam Narrative Exam: General appearance: Alert in NAD, conversant Eyes: anicteric sclerae, moist conjunctivae; PERRLA HENT: Atraumatic; +edentulous, oropharynx clear with moist mucous membranes and no mucosal ulcerations/no oral thrush; normal hard and soft palate. Normal external ears. Neck: Trachea midline; supple, no thyromegaly or lymphadenopathy Lungs: +CTA CV: tachy Abdomen: Soft, non-tender; no masses or hepatosplenomegaly, +old midline surgical scar Extremities: No peripheral edema or extremity lymphadenopathy Skin: +multiple bilateral arms ecchymoses and skin tears. +left nasal ucler. Psych: Appropriate affect, alert and oriented to person, place and time. Neuro: alert and oriented x 3. Moving all extermities Lines: No CVL / PICC - Constitutional Vitals: Vital Signs Temp Pulse Resp BP Pulse Ox 98.1 F 105 H 20 98/64 98 06/03/17 08:40 06/03/17 11:00 06/03/17 10:00 06/03/17 08:40 06/03/17 10:00 Temperature -Last 24 Hours Temperature 98.1 F Temperature 97.5 F Temperature 97.4 F Temperature 98.8 F Temperature 97.8 F - Labs CBC & Chem 7: 06/03/17 11:29 06/03/17 11:29 Labs: Abnormal lab results 06/02/17 06/03/17 06/03/17 Range/Units 14:15 11:29 11:29 WBC 38.4 H 32.8 H (4.5-11.0) K/mm3 RBC 5.31 H 5.69 H (3.65-5.03) M/mm3 Hgb 10.1 L 11.0 L (11.8-15.2) gm/dl MCV 76 L 69 L (84-94) fl MCH 19 L 19 L (28-32) pg MCHC 25 L 28 L (32-34) % RDW 24.6 H 23.8 H (13.2-15.2) % BUN 32 H (9-20) mg/dL Glucose 129 H (75-100) mg/dL
--- NOTE | 2017-06-03 14:35 | Discharge Summary ---
Providers - Providers Date of Admission: 05/30/17 03:26 Date of discharge: 06/05/17 Attending physician: BERNADETTE LU 05/30/17 08:28 Consult to Physician [CONS] Routine Consulting Provider: CHRIS VELASCO Reason For Exam: empyema Place consult to:: Notified:: A SERVICE Phone number called:: [phone] Was contact made?: Yes If yes, spoke with:: JULIET Time called:: 09:46 05/30/17 08:31 Consult to Physician [CONS] Routine Consulting Provider: FARSHAD BRITT Reason For Exam: chf, afib Place consult to:: [facility] Notified:: A SERVICE Phone number called:: [phone] Was contact made?: Yes If yes, spoke with:: DOMINICK Time called:: 09:42 05/30/17 08:32 Consult to Dietitian/Nutrition [CONS] Routine Physician Instructions: Reason For Exam: Reason for Consult: Malnutrition 05/30/17 10:00 Consult to Physician [CONS] Routine Consulting Provider: CARMELITA GUEVARA Reason For Exam: empyema, sepsis Place consult to:: ID Notified:: YES Phone number called:: [phone] Was contact made?: Yes Time called:: 11:30 05/31/17 12:50 Consult to Physician [CONS] Routine Consulting Provider: CHEL WANG Reason For Exam: pain management Place consult to:: rehab Notified:: y Phone number called:: [phone] Was contact made?: No Time called:: 14:16 Comment:: left message on machine for Dr Patton 06/01/17 13:22 Physical Therapy Evaluation and Treat [CONS] Routine Comment: Reason For Exam: SKILL LEVEL/ FREQ FALLS/NEEDS FOR HOME Primary care physician: [employer] Hospitalization Condition: Stable Pertinent studies: CT chest, image reviewed, COPD with fibrosis and scarring in both lungs. Pleural thickening, a loculated effusion in the left lung. Slight pleural thickening and mild effusion right lung. No pneumothorax. If any acute sick aneurysm measures up to 5.[address] abdomen and pelvis without contrast: Image reviewed: Mild left hydronephrosis is identified. The left ureter has a normal caliber. No evidence of renal stones or masses. An obstructive uropathy is possible. There is no evidence of obstruction or enteritis, Significant fecal debris throughout the colon was consistent with constipation. Hospital course: 72-year-old man history of hypertension, CHF, coronary artery disease, COPD, A. fib, chronic back pain comes emergency room with complaint of cough productive of green sputum, fever and shortness of breath. He is stated he sustained a fall on the left side. At home he is unable to care for himself is not compliant with his medications. He does not complain with anticoagulation. He continues to deteriorate, and is in and out of hospital. The only med he seems to take when he is at home and his pain meds. This patient is non compliant, and very frail, unable to care for himself, he would benefit from SNF placement , PT, OT. May benefit from Hospice since his main concern now is pain management, Patient has adamantly refused SNF placement, he was told that he is at risk for falling at home and at risk for serious fracture including hip fracture, intracranial hemorrhage. And he adamantly refused SNIF placement. He would like to go home with services. Discharge diagnosis and management: Sepsis - secondary to PNA, white count still elevated - will complete one week of abx Left pleural effusion Empyema ruled out Patient had ultrasound of his lungs and showed a complete resolution of pleural effusions. Therefore it is more likely due to CHF and could not have been a loculated effusion as was previously stated. ID recommended to completed one week abx Acute hypoxic respiratory failure Due to CHF exacerbation, continue oxygen supplementation, continue Lasix low dose COPD cont nebs, tapering steroids and abx Hypertension hold bp meds if SBP < 100 A. fib rate controlled continue digoxin (dig level on admission subtherapeutic at 0.4). reduced the dose of lopressor due to low BP. Pt. is poor candidate for systemic anticoagulation at this time in setting of noncompliance, high risk for falls, and multiple co-morbidities Acute on chronic systolic heart failure EF 30% Echo 09/2016: EF 30%, severe biatrial dilatation, mild to moderate TR, moderate pulmonary HTN, RVSP 47mmHg Continue PO lasix 20mg daily, lopressor, d/myriam lisinopril for low BP Severe Malnutrition Arm Rest Builder consulted, encourage balanced diet Chronic back pain Pain meds as needed Opioid dependence cont pain meds Complete immobility due to Frailty PT ordered, continue supportive care, due to multiple falls, patient is not a candidate for anticoagulation for A. fib Failure to thrive Continue supportive care CLL patient will resume home hospice on discharge leukocytosis -due to PNA and CLL - trended down to his baseline DVT ppx lovenox Disposition: DC-50 TO HOSPICE (HOME) Time spent for discharge: 32 minutes Core Measure Documentation - Palliative Care Palliative Care/ Comfort Measures: Hospice Care - Core Measures Any of the following diagnoses?: history only Exam - Physical Exam Narrative exam: General: Appears chronically ill, frail HEENT: MMM, EOMI cardiac: S1-S2 heard lungs: Reduced air entry in the bases abdomen: soft, nontender, nondistended bowel sounds positive extremities: no edema clubbing or cyanosis Skin: no rash or lesion Neuro: no focal deficit Psych: appropriate behavior and mood, cognition intact - Constitutional Vitals: Temp Pulse Resp BP Pulse Ox 98.4 F 52 L 18 91/64 93 06/03/17 13:13 06/03/17 13:13 06/03/17 13:13 06/03/17 13:13 06/03/17 13:13 Plan Activity: up only with assistance, fall precautions Weight Bearing Status: Non-Weight Bearing Diet: regular Follow up with: PRIMARY CARE, [Primary Care Provider] - 3-5 Days Prescriptions: ALPRAZolam [Xanax TAB] 1 mg PO BID PRN #7 tablet PRN Reason: Anxiety Aspirin EC [Aspirin Enteric Coated TAB] 81 mg PO QDAY #30 tablet. Digoxin [Lanoxin] 0.125 mg PO DAILY@1700 #30 tablet Doxycycline [Vibramycin CAP] 100 mg PO BID #4 capsule Famotidine [Pepcid] 20 mg PO BID #60 tablet Furosemide [Lasix TAB] 20 mg PO QDAY #30 tablet Gabapentin [Neurontin] 100 mg PO Q8HR #30 capsule Ipratropium [Atrovent NEB] 0.5 mg IH Q6HRT 30 Days Levalbuterol 1.25 [Xopenex] 1.25 mg IH Q6HRT 14 Days Metoprolol [Lopressor] 25 mg PO BID #60 tablet oxyCODONE /ACETAMINOPHEN [Percocet 5/325 mg] 1 tab PO Q4H PRN #30 tablet PRN Reason: Pain, Moderate (4-6) Potassium Chloride [K-Dur] 5 meq PO QDAY #30 tablet
--- NOTE | 2017-06-03 15:01 | Progress Note ---
Assessment and Plan Sepsis - secondary to PNA, - will complete one week of abx Left pleural effusion Empyema ruled out Patient had ultrasound of his lungs and showed a complete resolution of pleural effusions. Therefore it is more likely due to CHF and could not have been a loculated effusion as was previously stated. ID recommended to completed one week abx Acute hypoxic respiratory failure Due to CHF exacerbation, continue oxygen supplementation, continue Lasix COPD nebs, steroids and abx Acute exacerbation of systolic CHF Continue IV Lasix, Hypertension cont home meds A. fib rate not controlled continue digoxin (dig level on admission subtherapeutic at 0.4). increased lopressor to 25mg PO TID. Pt. is poor candidate for systemic anticoagulation at this time in setting of noncompliance, high risk for falls, and multiple co-morbidities Acute on chronic systolic heart failure EF 30% Echo 09/2016: EF 30%, severe biatrial dilatation, mild to moderate TR, moderate pulmonary HTN, RVSP 47mmHg Continue PO lasix, lopressor, lisinopril leukocytosis - likely due to CLL - PNA ia resolving Severe Malnutrition Leaf Size Picker consulted, encourage balanced diet Chronic back pain Pain meds as needed Opioid dependence cont pain meds Complete immobility due to Frailty PT ordered, continue supportive care, due to multiple falls, patient is not a candidate for anticoagulation for A. fib Failure to thrive Continue supportive care DVT ppx lovenox Brief History: 72-year-old man history of hypertension, CHF, coronary artery disease, COPD, A. fib, chronic back pain comes emergency room with complaint of cough productive of green sputum, fever and shortness of breath. He is stated he sustained a fall on the left side. At home he is unable to care for himself is not compliant with his medications. He does not complain with anticoagulation. He continues to deteriorate, and is in and out of hospital. The only med he seems to take when he is at home and his pain meds. CT chest, image reviewed, COPD with fibrosis and scarring in both lungs. Pleural thickening, a loculated effusion in the left lung. Slight pleural thickening and mild effusion right lung. No pneumothorax. If any acute sick aneurysm measures up to 5.[address] abdomen and pelvis without contrast: Image reviewed: Mild left hydronephrosis is identified. The left ureter has a normal caliber. No evidence of renal stones or masses. An obstructive uropathy is possible. There is no evidence of obstruction or enteritis, Significant fecal debris throughout the colon was consistent with constipation. This patient is non compliant, and very frail, unable to care for himself, he would benefit from SNF placement, PT, OT May benefit from Hospice since his main concern now is pain management, Patient has adamantly refused SNF placement, he was told that he is at risk for falling at home and at risk for serious fracture including hip fracture, intracranial hemorrhage. And he adamantly refused SNIF placement. He would like to go home with services. Subjective Date of service: 06/03/17 Principal diagnosis: AFib RVR Interval history: Patient seen and examined. Medical records and medication list reviewed. No acute event overnight noted by the RN. Patient denies any chest pain or difficulty breathing. his HR is better controlled today He wants to go home plan to d/c inpt hospice Objective - Exam Narrative Exam: General: Appears chronically ill, frail HEENT: MMM, EOMI cardiac: S1-S2 heard lungs: Reduced air entry in the bases abdomen: soft, nontender, nondistended bowel sounds positive extremities: no edema clubbing or cyanosis Skin: no rash or lesion Neuro: no focal deficit Psych: appropriate behavior and mood, cognition intact - Constitutional Vitals: Vital Signs - 12hr 06/03/17 06/03/17 06/03/17 05:31 08:40 09:15 Temperature 97.5 F L 98.1 F Pulse Rate 82 103 H Pulse Rate [ Anterior Bilateral Throughout] Pulse Rate [ Left Radial] Respiratory 20 18 Rate Respiratory Rate [Anterior Bilateral Throughout] Respiratory Rate [Back] Respiratory Rate [Chest] Blood Pressure 154/73 98/64 O2 Sat by Pulse 99 100 96 Oximetry 06/03/17 06/03/17 06/03/17 09:18 09:35 10:00 Temperature Pulse Rate Pulse Rate [ 80 82 Anterior Bilateral Throughout] Pulse Rate [ 98 H Left Radial] Respiratory 20 Rate Respiratory 20 18 Rate [Anterior Bilateral Throughout] Respiratory 20 Rate [Back] Respiratory 20 Rate [Chest] Blood Pressure O2 Sat by Pulse 98 Oximetry 06/03/17 06/03/17 06/03/17 11:00 13:13 14:31 Temperature 98.4 F Pulse Rate 105 H 52 L Pulse Rate [ 79 Anterior Bilateral Throughout] Pulse Rate [ Left Radial] Respiratory 18 Rate Respiratory 20 Rate [Anterior Bilateral Throughout] Respiratory Rate [Back] Respiratory Rate [Chest] Blood Pressure 91/64 O2 Sat by Pulse 93 Oximetry 06/03/17 14:38 Temperature Pulse Rate Pulse Rate [ 108 H Anterior Bilateral Throughout] Pulse Rate [ Left Radial] Respiratory Rate Respiratory 20 Rate [Anterior Bilateral Throughout] Respiratory Rate [Back] Respiratory Rate [Chest] Blood Pressure O2 Sat by Pulse Oximetry - Labs CBC & Chem 7: 06/03/17 11:29 06/03/17 11:29 Labs: Abnormal lab results 06/03/17 06/03/17 Range/Units 11:29 11:29 WBC 32.8 H (4.5-11.0) K/mm3 RBC 5.69 H (3.65-5.03) M/mm3 Hgb 11.0 L (11.8-15.2) gm/dl MCV 69 L (84-94) fl MCH 19 L (28-32) pg MCHC 28 L (32-34) % RDW 23.8 H (13.2-15.2) % BUN 32 H (9-20) mg/dL Glucose 129 H (75-100) mg/dL
[2017-06-03] MEDS ORDERED: HALDOL IM ONE (15:30)
[2017-06-03] MEDS: LANOXIN PO SCH (17:22)
[2017-06-03] MEDS: COLACE PO SCH (17:26)
--- NOTE | 2017-06-03 19:37 | Progress Note ---
Assessment and Plan Patient sleeping at this time.No acute respiratory distress.Patient is on 2 litres O2.. O2 saturation 96%. - Patient Problems (1) Chest pain Current Visit: Yes Status: Acute Qualifiers: Chest pain type: C Ischemic chest pain type: I Plan to address problem: Management as per primary care and cardiology. (2) COPD (chronic obstructive pulmonary disease) Current Visit: Yes Status: Chronic Qualifiers: COPD type: C Chronic bronchitis type: C Emphysema type: E Plan to address problem: Continue Brovanna/budesonide aerosol treatments q 12 hours. Continue I/V solumedral. Continue S/C Lovenox Continue Pepcid. (3) Acute and chronic respiratory failure ([id number]) Current Visit: No Status: Acute Qualifiers: Respiratory failure complication: R Plan to address problem: Improved. Patient is on room air. O2 saturation 95%. Subjective Date of service: 06/03/17 Principal diagnosis: AFib RVR Interval history: Patient sleeping at this time.No acute respiratory distress.Patient is on 2 litres O2.. O2 saturation 96%. Objective Vital Signs - 12hr 06/03/17 06/03/17 06/03/17 08:40 09:15 09:18 Temperature 98.1 F Pulse Rate 103 H Pulse Rate [ 80 Anterior Bilateral Throughout] Pulse Rate [ Left Radial] Respiratory 18 Rate Respiratory 20 Rate [Anterior Bilateral Throughout] Respiratory Rate [Back] Respiratory Rate [Chest] Blood Pressure 98/64 O2 Sat by Pulse 100 96 Oximetry 06/03/17 06/03/17 06/03/17 09:35 10:00 11:00 Temperature Pulse Rate 105 H Pulse Rate [ 82 Anterior Bilateral Throughout] Pulse Rate [ 98 H Left Radial] Respiratory 20 Rate Respiratory 18 Rate [Anterior Bilateral Throughout] Respiratory 20 Rate [Back] Respiratory 20 Rate [Chest] Blood Pressure O2 Sat by Pulse 98 Oximetry 06/03/17 06/03/17 06/03/17 13:13 14:31 14:38 Temperature 98.4 F Pulse Rate 52 L Pulse Rate [ 79 108 H Anterior Bilateral Throughout] Pulse Rate [ Left Radial] Respiratory 18 Rate Respiratory 20 20 Rate [Anterior Bilateral Throughout] Respiratory Rate [Back] Respiratory Rate [Chest] Blood Pressure 91/64 O2 Sat by Pulse 93 Oximetry 06/03/17 06/03/17 17:22 17:25 Temperature 97.8 F Pulse Rate 98 H 95 H Pulse Rate [ Anterior Bilateral Throughout] Pulse Rate [ Left Radial] Respiratory 16 Rate Respiratory Rate [Anterior Bilateral Throughout] Respiratory Rate [Back] Respiratory Rate [Chest] Blood Pressure 97/65 O2 Sat by Pulse 97 Oximetry Constitutional: no acute distress, asleep Eyes: non-icteric ENT: oropharynx moist Neck: supple, no lymphadenopathy Ascultation: Bilateral: diminished breath sounds Cardiovascular: regular rate and rhythm Gastrointestinal: normoactive bowel sounds Integumentary: normal Extremities: no cyanosis, no edema Neurologic: unable to assess Psychiatric: other (Affect abnormal and flat.) CBC and BMP: 06/03/17 11:29 06/03/17 11:29 ABG, PT/INR, D-dimer: ABG POC ABG pH 7.397 (7.35-7.45) 05/30/17 01:55 POC ABG pCO2 35.4 (35-45) 05/30/17 01:55 POC ABG pO2 77 (80-105) L 05/30/17 01:55 POC ABG HCO3 21.8 05/30/17 01:55 POC ABG Total CO2 23 05/30/17 01:55 POC ABG O2 Sat 95 05/30/17 01:55 PT/INR, D-dimer PT 15.5 Sec. (12.2-14.9) H 05/31/17 08:08 INR 1.17 (0.87-1.13) H 05/31/17 08:08 Abnormal lab findings: Abnormal Labs 05/30/17 05/30/17 05/30/17 17:11 17:11 17:11 WBC RBC Hgb Hct MCV MCH MCHC RDW Seg Neuts % (Manual) Lymphocytes % (Manual) Monocytes % (Manual) Nucleated RBC % Seg Neutrophils # Man Lymphocytes # (Manual) Monocytes # (Manual) PT INR Carbon Dioxide BUN Glucose Calcium Lactate Dehydrogenase 333 H C-Reactive Protein 7.10 H Digoxin 0.4 L 05/31/17 05/31/17 05/31/17 05:49 05:49 08:08 WBC 13.0 H RBC Hgb 8.4 L Hct 28.9 L MCV 67 L MCH 20 L MCHC 29 L RDW 23.3 H Seg Neuts % (Manual) 75.0 H Lymphocytes % (Manual) 3.0 L Monocytes % (Manual) 9.0 H Nucleated RBC % 2.0 H Seg Neutrophils # Man 9.8 H Lymphocytes # (Manual) 0.4 L Monocytes # (Manual) 1.2 H PT 15.5 H INR 1.17 H Carbon Dioxide 19 L BUN Glucose 160 H Calcium 7.8 L Lactate Dehydrogenase C-Reactive Protein Digoxin 06/02/17 06/03/17 06/03/17 14:15 11:29 11:29 WBC 38.4 H 32.8 H RBC 5.31 H 5.69 H Hgb 10.1 L 11.0 L Hct MCV 76 L 69 L MCH 19 L 19 L MCHC 25 L 28 L RDW 24.6 H 23.8 H Seg Neuts % (Manual) Lymphocytes % (Manual) Monocytes % (Manual) Nucleated RBC % Seg Neutrophils # Man Lymphocytes # (Manual) Monocytes # (Manual) PT INR Carbon Dioxide BUN 32 H Glucose 129 H Calcium Lactate Dehydrogenase C-Reactive Protein Digoxin Chest x-ray: report reviewed (COPD with superimposed CHF), image reviewed
[2017-06-04] MEDS: XANAX PO PRN ×2 (01:56→21:28)
[2017-06-04] MEDS: LOPRESSOR PO SCH ×3 (05:17→21:28)
[2017-06-04] MEDS: NEURONTIN PO SCH ×3 (05:17→21:28)
[2017-06-04] MEDS: PULMICORT IH SCH ×2 (08:06→19:38)
[2017-06-04] MEDS: BROVANA NEBU IH SCH ×2 (08:06→19:38)
[2017-06-04] MEDS: ATROVENT IH SCH ×3 (08:06→19:38)
[2017-06-04] MEDS: XOPENEX IH SCH ×3 (08:07→19:38)
--- NOTE | 2017-06-04 09:54 | Progress Note ---
Assessment and Plan Assessment: Acute on chronic systolic heart failure EF 30% with left pleural effusion Echo 09/2016: EF 30%, severe biatrial dilatation, mild to moderate TR, moderate pulmonary HTN, RVSP 47mmHg Continue PO lasix, lopressor, lisinopril Persistent atrial fibrillation with variable ventricular response continue digoxin. Cont lopressor 25mg PO TID. Pt. is poor candidate for systemic anticoagulation at this time in setting of noncompliance, high risk for falls, and multiple co-morbidities Sepsis / leukocytosis - empyema ruled out per primary Anemia Dilated NICMP COPD Hypertension PUD, s/p colectomy Chronic lymphocytic leukemia Pulmonary HTN H/o seizures Noncompliance Plan: Cont lopressor and digoxin. Pt. is poor candidate for systemic anticoagulation at this time in setting of noncompliance, high risk for falls, and multiple co-morbidities Overall prognosis is guarded due to multiple medical issues. For home hospice at discharge per pt's POA. Discharge planning per CM. The patient has been seen in conjunction with Dr. Short who agrees with the assessment and plan of care. Subjective Date of service: 06/04/17 Principal diagnosis: AFib RVR Interval history: Pt resting in bed, on BIPAP, lethargic, restrained. Remains in AFib with CVR on telemetry. BPs stable. Family at bedside. Objective Last Vital Signs Temp 98.0 F 06/04/17 06:45 Pulse 110 H 06/04/17 06:45 Resp 20 06/04/17 06:45 BP 126/73 06/04/17 06:45 Pulse Ox 94 06/04/17 06:45 - Physical Examination General: Other (lethargic; on BiPAP) HEENT: Positive: PERRL Neck: Positive: neck supple Cardiac: Positive: irregularly irregular, S1/S2 Lungs: Positive: Decreased Breath Sounds, Rhonchi, Oxygen Neuro: Positive: Other (lethargic; on BIPAP) Abdomen: Positive: Soft, Active Bowel Sounds. Negative: Tender Skin: Positive: Clear, Rash Musculoskeletal: No Fluid Collection, No Pain, Normal Range of Motion Extremities: Absent: edema - Labs and Meds CBC 06/03/17 Range/Units 11:29 WBC 32.8 H (4.5-11.0) K/mm3 RBC 5.69 H (3.65-5.03) M/mm3 Hgb 11.0 L (11.8-15.2) gm/dl Hct 39.0 (35.5-45.6) % Plt Count 343 (140-440) K/mm3 Comprehensive Metabolic Panel 06/03/17 Range/Units 11:29 Sodium 141 (137-145) mmol/L Potassium 4.9 (3.6-5.0) mmol/L Chloride 102.0 (98-107) mmol/L Carbon Dioxide 25 (22-30) mmol/L BUN 32 H (9-20) mg/dL Creatinine 1.2 (0.8-1.5) mg/dL Glucose 129 H (75-100) mg/dL Calcium 8.7 (8.4-10.2) mg/dL - Imaging and Cardiology EKG: image reviewed - Telemetry EKG Rhythm: Atrial Fibrillation
[2017-06-04] MEDS: VIBRAMYCIN PO SCH ×2 (10:13→21:28)
[2017-06-04] MEDS: LOVENOX SUB-Q SCH (10:13)
[2017-06-04] MEDS: HALFPRIN EC PO SCH (10:13)
[2017-06-04] MEDS: ZESTRIL PO SCH (10:13)
[2017-06-04] MEDS: FEOSOL PO SCH (10:13)
[2017-06-04] MEDS: PEPCID PO SCH ×2 (10:13→21:28)
[2017-06-04] MEDS: LEVAQUIN PO SCH (10:13)
[2017-06-04] MEDS: LASIX PO SCH (10:14)
[2017-06-04] MEDS: PERCOCET 5/325 PO PRN ×2 (14:40→19:56)
[2017-06-04] MEDS: LANOXIN PO SCH (17:13)
[2017-06-04] MEDS: COLACE PO SCH (17:13)
[2017-06-04] MEDS ORDERED: NACL 0.9% 500 ML 500 ML IV ONE (20:58)
[2017-06-05] MEDS: NEURONTIN PO SCH ×2 (06:12→15:25)
[2017-06-05] MEDS: LOPRESSOR PO SCH (06:12)
[2017-06-05 07:52] VITALS: BP 102/71
[2017-06-05] MEDS: PERCOCET 5/325 PO PRN (09:30)
[2017-06-05] MEDS: VIBRAMYCIN PO SCH (09:31)
[2017-06-05] MEDS: LEVAQUIN PO SCH (09:31)
[2017-06-05] MEDS: HALFPRIN EC PO SCH (09:31)
[2017-06-05] MEDS: FEOSOL PO SCH (09:31)
[2017-06-05] MEDS: PEPCID PO SCH (09:31)
[2017-06-05] MEDS: LOVENOX SUB-Q SCH (09:31)
[2017-06-05] MEDS: LASIX PO SCH (09:32)
[2017-06-05] MEDS: ZESTRIL PO SCH (09:32)
[2017-06-05] MEDS: BROVANA NEBU IH SCH (09:38)
[2017-06-05] MEDS: XOPENEX IH SCH ×2 (09:38→13:05)
[2017-06-05] MEDS: ATROVENT IH SCH ×2 (09:39→13:05)
[2017-06-05] MEDS: PULMICORT IH SCH (09:39)
--- NOTE | 2017-06-05 10:11 | Progress Note ---
Assessment and Plan Assessment: Acute on chronic systolic heart failure EF 30% with left pleural effusion Echo 09/2016: EF 30%, severe biatrial dilatation, mild to moderate TR, moderate pulmonary HTN, RVSP 47mmHg Continue PO lasix, lopressor, lisinopril Persistent atrial fibrillation with variable ventricular response continue digoxin. Cont lopressor 25mg PO TID. Pt. is poor candidate for systemic anticoagulation at this time in setting of noncompliance, high risk for falls, and multiple co-morbidities Sepsis / leukocytosis - empyema ruled out per primary Anemia Dilated NICMP COPD Hypertension PUD, s/p colectomy Chronic lymphocytic leukemia Pulmonary HTN H/o seizures Noncompliance Plan: Cont lopressor and digoxin. Titrate lopressor as BP permits. Pt. is poor candidate for systemic anticoagulation at this time in setting of noncompliance, high risk for falls, and multiple co-morbidities Overall prognosis is guarded due to multiple medical issues. Will see peripherally over the weekend. For home hospice at discharge per pt's POA. Discharge planning per CM. The patient has been seen in conjunction with Dr. Short who agrees with the assessment and plan of care. Subjective Date of service: 06/05/17 Principal diagnosis: AFib RVR Interval history: Pt resting in bed, on O2 via NC. Remains in AFib with variable ventricular response. BPs labile - required NS bolus yesterday for hypotension. C/o back pain and requesting pain medication. No other complaints. Objective Last Vital Signs Temp 97.3 F L 06/05/17 07:51 Pulse 90 06/05/17 07:51 Resp 18 06/05/17 07:51 BP 102/71 06/05/17 07:51 Pulse Ox 98 06/05/17 07:51 - Physical Examination General: Other (c/o chronic back pain) HEENT: Positive: PERRL Neck: Positive: neck supple Cardiac: Positive: irregularly irregular, S1/S2 Lungs: Positive: Decreased Breath Sounds Neuro: Positive: Other (lethargic; on BIPAP) Abdomen: Positive: Soft, Active Bowel Sounds. Negative: Tender Skin: Positive: Clear, Rash Musculoskeletal: No Fluid Collection, No Pain, Normal Range of Motion Extremities: Absent: edema - Imaging and Cardiology EKG: image reviewed - Telemetry EKG Rhythm: Atrial Fibrillation
[2017-06-05 10:26] LABS: Mean Corpuscular HGB Conc 29 % (32-34); Platelet Count 243 K/mm3 (140-440); Red Blood Count 4.49 M/mm3 (3.65-5.03)
[2017-06-05 10:30] LABS: Hemoglobin 8.9 gm/dl (11.8-15.2); White Blood Count 27.8 K/mm3 (4.5-11.0)
[2017-06-05 10:31] LABS: Hematocrit 30.4 % (35.5-45.6); Mean Corpuscular Hemoglobin 20 pg (28-32); Mean Corpuscular Volume 68 fl (84-94)
[2017-06-05 10:39] LABS: Anion Gap 18 mmol/L; BUN/Creatinine Ratio 32.22; Blood Urea Nitrogen 29 mg/dL (9-20); Calcium 8.3 mg/dL (8.4-10.2); Carbon Dioxide 26 mmol/L (22-30); Chloride 104.8 mmol/L (98-107); Glucose 162 mg/dL (75-100); Potassium 4.3 mmol/L (3.6-5.0); Sodium 144 mmol/L (137-145)
[2017-06-05] MEDS ORDERED: LASIX PO SCH (11:00)
--- NOTE | 2017-06-05 11:35 | Progress Note ---
Assessment and Plan Sepsis - secondary to PNA, - will complete one week of abx Left pleural effusion Empyema ruled out Patient had ultrasound of his lungs and showed a complete resolution of pleural effusions. Therefore it is more likely due to CHF and could not have been a loculated effusion as was previously stated. ID recommended to completed one week abx Acute hypoxic respiratory failure Due to CHF exacerbation, continue oxygen supplementation, continue Lasix COPD nebs, steroids and abx Hypertension will hold further BP meds for low BP A. fib rate not controlled continue digoxin (dig level on admission subtherapeutic at 0.4). increased lopressor to 25mg PO TID. Got his morning dose, will hold from now for low BP Pt. is poor candidate for systemic anticoagulation at this time in setting of noncompliance, high risk for falls, and multiple co-morbidities Acute on chronic systolic heart failure EF 30% Echo 09/2016: EF 30%, severe biatrial dilatation, mild to moderate TR, moderate pulmonary HTN, RVSP 47mmHg got morning dose of lasix, BB and ACEI, but will hold now for low BP leukocytosis - likely due to CLL - PNA is resolving Severe Malnutrition Full Roll Inspector consulted, encourage balanced diet Chronic back pain Pain meds as needed Opioid dependence cont pain meds Complete immobility due to Frailty PT ordered, continue supportive care, due to multiple falls, patient is not a candidate for anticoagulation for A. fib Failure to thrive Continue supportive care DVT ppx lovenox Brief History: 72-year-old man history of hypertension, CHF, coronary artery disease, COPD, A. fib, chronic back pain comes emergency room with complaint of cough productive of green sputum, fever and shortness of breath. He is stated he sustained a fall on the left side. At home he is unable to care for himself is not compliant with his medications. He does not complain with anticoagulation. He continues to deteriorate, and is in and out of hospital. The only med he seems to take when he is at home and his pain meds. CT chest, image reviewed, COPD with fibrosis and scarring in both lungs. Pleural thickening, a loculated effusion in the left lung. Slight pleural thickening and mild effusion right lung. No pneumothorax. If any acute sick aneurysm measures up to 5.[address] abdomen and pelvis without contrast: Image reviewed: Mild left hydronephrosis is identified. The left ureter has a normal caliber. No evidence of renal stones or masses. An obstructive uropathy is possible. There is no evidence of obstruction or enteritis, Significant fecal debris throughout the colon was consistent with constipation. This patient is non compliant, and very frail, unable to care for himself, he would benefit from SNF placement, PT, OT May benefit from Hospice since his main concern now is pain management, Patient has adamantly refused SNF placement, he was told that he is at risk for falling at home and at risk for serious fracture including hip fracture, intracranial hemorrhage. And he adamantly refused SNIF placement. He would like to go home with services. Subjective Date of service: 06/04/17 Principal diagnosis: AFib RVR Interval history: Patient seen and examined. Medical records and medication list reviewed. plan to d/c HOME hospice bp NOTED TO BE LOW TODAY planned to get discharge today, as BP running low, will cont to monitor off BP meds Objective - Exam Narrative Exam: General: Appears chronically ill, frail HEENT: MMM, EOMI cardiac: S1-S2 heard lungs: Reduced air entry in the bases abdomen: soft, nontender, nondistended bowel sounds positive extremities: no edema clubbing or cyanosis Skin: no rash or lesion Neuro: no focal deficit Psych: appropriate behavior and mood, cognition intact - Constitutional Vitals: Vital Signs - 12hr 06/04/17 06/05/17 06/05/17 23:48 02:25 02:28 Temperature 98.5 F Pulse Rate 125 H 135 H Respiratory 18 20 Rate Blood Pressure 81/58 92/48 O2 Sat by Pulse 94 95 95 Oximetry 06/05/17 06/05/17 06/05/17 03:00 04:30 07:51 Temperature 98.1 F 97.3 F L Pulse Rate 113 H 121 H 90 Respiratory 19 18 Rate Blood Pressure 107/76 102/71 O2 Sat by Pulse 96 98 Oximetry - Labs CBC & Chem 7: 06/05/17 09:56 06/05/17 09:56 Labs: Abnormal lab results 06/05/17 06/05/17 Range/Units 09:56 09:56 WBC 27.8 H (4.5-11.0) K/mm3 Hgb 8.9 L (11.8-15.2) gm/dl Hct 30.4 L D (35.5-45.6) % MCV 68 L (84-94) fl MCH 20 L (28-32) pg MCHC 29 L (32-34) % RDW 23.0 H (13.2-15.2) % BUN 29 H (9-20) mg/dL Glucose 162 H (75-100) mg/dL Calcium 8.3 L (8.4-10.2) mg/dL
--- NOTE | 2017-06-05 13:04 | Event Note ---
Date: 06/05/17 F/U, chronic low back pain with peripheral neuropathy (?spinal stenosis). Pt continues with intermittent agitation and attempts to get out to bed. On today , reports symptoms of radiating pain into his buttocks. Case management and IM present during visit; pt may benefit from increasing dose of neurontin ( currently on 100mg TID); pain management can be continued through hospice care at discharge. Thank you for consultation. Will sign off as pt is scheduled for d/c on today.
[2017-06-05] MEDS ORDERED: ATROVENT IH SCH (20:00)
[2017-06-05] MEDS ORDERED: XOPENEX IH SCH (20:00)
[2017-06-05] MEDS ORDERED: PULMICORT IH SCH (20:00)
[2017-06-05] MEDS ORDERED: BROVANA NEBU IH SCH (20:00)
== END 2017-06-05 15:45 | disposition hospice, home (50) | DRG 871 ==
LOC: ED 22:28 → 4A 05-30 03:26
PROVIDERS: ADMIT Internal Medicine; ATTEND Internal Medicine
PROC: 4A033R1 Measurement of Arterial Saturation, Peripheral, Percutaneous Approach (ICD-10-PCS; principal; 2017-05-30)
PROC: 5A09557 Assistance with Respiratory Ventilation, Greater than 96 Consecutive Hours, Continuous Positive Airway Pressure (ICD-10-PCS; principal; 2017-05-30)
DX: A41.9 Sepsis, unspecified organism (principal); E43 Unspecified severe protein-calorie malnutrition; R53.2 Functional quadriplegia; I50.23 Acute on chronic systolic (congestive) heart failure; J18.1 Lobar pneumonia, unspecified organism; J96.21 Acute and chronic respiratory failure with hypoxia; J44.0 Chronic obstructive pulmonary disease with (acute) lower respiratory infection; Z68.1 Body mass index [BMI] 19.9 or less, adult; J90 Pleural effusion, not elsewhere classified; F11.20 Opioid dependence, uncomplicated; I42.9 Cardiomyopathy, unspecified; C91.10 Chronic lymphocytic leukemia of B-cell type not having achieved remission; J44.9 Chronic obstructive pulmonary disease, unspecified; I11.0 Hypertensive heart disease with heart failure; Z88.8 Allergy status to other drugs, medicaments and biological substances; K21.9 Gastro-esophageal reflux disease without esophagitis; Z79.82 Long term (current) use of aspirin; I25.10 Atherosclerotic heart disease of native coronary artery without angina pectoris; Z82.49 Family history of ischemic heart disease and other diseases of the circulatory system; M54.9 Dorsalgia, unspecified; I73.9 Peripheral vascular disease, unspecified; Z87.891 Personal history of nicotine dependence; I71.9 Aortic aneurysm of unspecified site, without rupture; R62.7 Adult failure to thrive; D64.9 Anemia, unspecified; S20.219A Contusion of unspecified front wall of thorax, initial encounter; I27.2 Other secondary pulmonary hypertension; I07.1 Rheumatic tricuspid insufficiency; J84.10 Pulmonary fibrosis, unspecified; G62.9 Polyneuropathy, unspecified; Z91.19 Patient's noncompliance with other medical treatment and regimen
CPT/HCPCS: 36415; 71020; 71250; 72100; 73521; 74176; 76604; 80048; 80053; 80162; 81001; 82140; 82803; 83615; 83880; 84484; 85007; 85025; 85027; 85610; 86140; 87040; 90686; 93005; 93010; 93306; 94640; 94660; 94760; G8978-GP; G8979-GP; J1160; J1170; J1630; J1650; J1940; J1956; J2270; J2405; J2543; J2920; J3370; J7040; J7050

== ENCOUNTER 2017-06-07 22:16 | Inpatient (IN) | payer MEDICARE ==
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
[2017-06-08 00:54] LABS: Mean Corpuscular HGB Conc 29 % (32-34); Platelet Count 258 K/mm3 (140-440); Red Blood Count 5.32 M/mm3 (3.65-5.03)
[2017-06-08 00:58] LABS: White Blood Count 35.5 K/mm3 (4.5-11.0)
[2017-06-08 00:59] LABS: Hemoglobin 10.3 gm/dl (11.8-15.2); Mean Corpuscular Hemoglobin 19 pg (28-32); Mean Corpuscular Volume 67 fl (84-94)
[2017-06-08 01:01] LABS: Hematocrit 34.4 % (35.5-45.6)
[2017-06-08 01:11] LABS: Alanine Aminotransferase 20 units/L (7-56); Albumin 2.9 g/dL (3.9-5); Albumin/Globulin Ratio 1.1 %; Alkaline Phosphatase 153 units/L (35-129); Anion Gap 16 mmol/L; Blood Urea Nitrogen 21 mg/dL (9-20); Calcium 8.5 mg/dL (8.4-10.2); Carbon Dioxide 31 mmol/L (22-30); Glucose 93 mg/dL (75-100); Sodium 147 mmol/L (137-145); Total Protein 5.5 g/dL (6.3-8.2)
[2017-06-08] MEDS ORDERED: LEVAQUIN 500MG/100ML 500 MG/100 ML BAG IV ONE (01:18)
[2017-06-08] MEDS: NACL 0.9% 1000 ML 1,000 ML IV ONE ×2 (02:04→02:23)
[2017-06-08] MEDS ORDERED: DULCOLAX PR PRN (02:53)
[2017-06-08] MEDS ORDERED: ZOFRAN IV PRN (02:53)
[2017-06-08] MEDS ORDERED: TYLENOL PO PRN (02:53)
[2017-06-08] MEDS ORDERED: MILK OF MAGNESIA PO PRN (02:53)
--- NOTE | 2017-06-08 02:55 | History and Physical Report ---
History of Present Illness Date of examination: 06/08/17 History of present illness: This 72-year-old man history of hypertension, CHF, coronary artery disease, COPD , A. fib was brought to the emergency room because they're unable to care for the patient at home. On the last admission, the patient did refuse placement, he continues to refuse although the family wants him to be placed in a alf Review Of Systems: Constitutional: no weight loss Ears, eyes, nose, mouth and throat: no nasal congestion, no nasal discharge, no sinus pressure, blurry vision, diplopia Neck: No neck pain or rigidity. Cardiovascular: chest pain, orthopnea, palpitations Respiratory: No shortness of breath, cough Gastrointestinal: abdominal pain, hematochezia Genitourinary : no dysuria, frequency , hematuria Musculoskeletal: no muscle ache Integumentary: no rash, no pruritis Neurological: no parathesias, focal weakness Endocrine: no cold or heat intolerance, no polyuria or polydipsia Hematologic/Lymphatic: no easy bruising, no easy bleeding, no gland swelling Allergic/Immunologic: no urticaria, no angioedema. PAST MEDICAL HISTORY:hypertension, CHF, coronary artery disease, COPD, A. fib PAST SURGICAL HISTORY:Tonsillectomy, adenoidectomy, colon resection FAMILY HISTORY: Hypertension SOCIAL HISTORY: Denies alcohol, tobacco, drugs Medications and Allergies Allergies Allergy/AdvReac Type Severity Reaction Status Date / Time albuterol Allergy Shortness Verified 06/07/17 23:36 of Breath Home Medications Medication Instructions Recorded Confirmed Last Taken Type Doxycycline [Vibramycin CAP] 100 mg PO BID #4 capsule 06/03/17 06/08/17 Unknown Rx oxyCODONE /ACETAMINOPHEN [Percocet 1 tab PO Q4H PRN #30 tablet 06/03/17 Unknown Rx 5/325 mg] ALPRAZolam [Xanax TAB] 1 mg PO BID PRN #7 tablet 06/05/17 06/08/17 Unknown Rx Aspirin EC [Aspirin Enteric Coated 81 mg PO QDAY #30 tablet.dr 06/05/17 Unknown Rx TAB] Digoxin [Lanoxin] 0.125 mg PO DAILY@1700 #30 tablet 06/05/17 06/08/17 Unknown Rx Famotidine [Pepcid] 20 mg PO BID #60 tablet 06/05/17 06/08/17 Unknown Rx Furosemide [Lasix TAB] 20 mg PO QDAY #30 tablet 06/05/17 06/08/17 Unknown Rx Gabapentin [Neurontin] 100 mg PO Q8HR #30 capsule 06/05/17 06/08/17 Unknown Rx Ipratropium [Atrovent NEB] 0.5 mg IH Q6HRT 30 Days 06/05/17 06/08/17 Unknown Rx Levalbuterol 1.25 [Xopenex] 1.25 mg IH Q6HRT 14 Days 06/05/17 06/08/17 Unknown Rx Metoprolol [Lopressor] 25 mg PO BID #60 tablet 06/05/17 06/08/17 Unknown Rx Potassium Chloride [K-Dur] 5 meq PO QDAY #30 tablet 06/05/17 06/08/17 Unknown Rx Active Meds: Active Medications Sodium Chloride (Nacl 0.9% 1000 Ml) 1,000 mls @ 125 mls/hr IV ONCE ONE Stop: 06/08/17 07:57 Last Admin: 06/08/17 02:23 Dose: Not Given Exam - Physical Exam Narrative exam: Gen. appearance: Patient lying in bed in no acute distress HEENT: Normocephalic/atraumatic, pupils equal round reactive to light, extra alkaline movement intact, no scleral icterus, no JVD or thyromegaly or nodule, neck is supple, mucous membrane moist, no erythema or exudate Heart: S1-S2, irregular, irregular rate and rhythm Lungs: Clear to auscultation bilateral breathing comfortable Abdomen: Positive bowel sounds, nontender, nondistended, no organomegaly Extremities: No edema, cyanosis, clubbing Neuro:: Oriented 3 , cranial nerves II-12 intact, speech, motor intact Skin: No rash, nodules, warm dry - Constitutional Vitals: Temp Pulse Resp BP Pulse Ox 98.4 F 119 H 24 109/69 96 06/07/17 23:56 06/08/17 01:30 06/08/17 01:30 06/08/17 01:30 06/08/17 00:00 Results - Labs CBC & Chem 7: 06/08/17 00:28 06/08/17 00:28 Labs: Abnormal lab results 06/08/17 06/08/17 Range/Units 00:28 00:28 WBC 35.5 H (4.5-11.0) K/mm3 RBC 5.32 H (3.65-5.03) M/mm3 Hgb 10.3 L (11.8-15.2) gm/dl Hct 34.4 L (35.5-45.6) % MCV 67 L (84-94) fl MCH 19 L (28-32) pg MCHC 29 L (32-34) % RDW 24.0 H (13.2-15.2) % Sodium 147 H (137-145) mmol/L Carbon Dioxide 31 H (22-30) mmol/L BUN 21 H (9-20) mg/dL Creatinine 0.6 L (0.8-1.5) mg/dL Alkaline Phosphatase 153 H (35-129) units/L Total Protein 5.5 L (6.3-8.2) g/dL Albumin 2.9 L (3.9-5) g/dL Assessment and Plan Assessment Profound leukocytosis, most likely CLL versus infection A fib with RVR COPD CHF, stable Hypertension Coronary artery disease Chronic back pain Plan Admit to medicine Start IV levaquin, follow cultures, consult hematology No IV fluids, history of CHF Continue appropriate outpatient medications, start DVT prophylaxis
[2017-06-08 06:23] LABS: Basophils % (Manual) 0 % (0.0-1.8); Blastocytes % (Manual) 0 %; Elliptocytes 1+
[2017-06-08 06:24] LABS: Anisocytosis 2+; Hypersegmented Neutrophils Few; Hypochromasia 2+; Microcytosis 1+; Poikilocytosis 1+; Tear Drop Cells Rare
[2017-06-08 06:25] LABS: Diff Status Complete
--- NOTE | 2017-06-08 08:07 | XRay Report ---
PORTABLE CHEST INDICATION: Dyspnea. COMPARISON: 06/03/2017 FINDINGS: Portable, frontal chest radiograph again demonstrates hazy bibasilar opacities/effusions, left more than right with obscuration of the left hemidiaphragm. Stable cardiomediastinal silhouette/possible mild cardiomegaly. Mild aortic knob calcifications. Increased lung markings, possibly greater congestive superimposed upon COPD/chronic fibrosis. EKG leads. Demineralized bones with few old healed bilateral rib deformities. Stable upper abdominal surgical clips. EKG leads. CONCLUSION: COPD with superimposed CHF again suspected, as detailed above. Thank you for the opportunity to participate in this patient's care.
--- NOTE | 2017-06-08 08:43 | Admit Criteria Form ---
Admission Criteria Documentation: PNEUMONIA, COMMUNITY ACQUIRED Clinical Indications for Admission to Inpatient Care (Place ' X' for any and all applicable criteria): Admission to inpatient status for two midnights or more is indicated for ANY ONE of the following (1)(2)(3): [ ]I. Hypoxia [ ]II. Hemodynamic instability [ ]III. Altered mental status that is severe or persistent [ ]IV. Dehydration that is severe or persistent. [X ]V. Bacteremia [ ]. Moderate-risk or high-risk category patients (Pneumonia Severity Index ( PSI) class IV or V, or CURB-65 score of 3 or greater). [ ]VII. Intermediate-risk category patients (e.g., PSI class III or CURB-65 score 2) who do not improve with outpatient and observation care treatment [ ]VIII. Outpatient treatment failure as indicated by 1 or more of the following(9): [ ]a) Failure to respond to antibiotic (eg, resistant organism) [ ]b) Clinically significant adverse effects from medication (eg, vomiting) [ ]c) Complications of pneumonia (eg, empyema, bacteremia) [ ]d) Significant worsening of comorbid cond necessitating inpatient care (eg, chronic heart failure) [ ]IX. Appropriate diagnostic testing and treatment unavailable in outpatient or recovery facility (eg, testing or infection control measures unavailable) [ ]X. Respiratory finding (eg. tachypnea) that do not respond to outpatient observation care treatment [ ]XI. Complicated pleural effusions (eg, emphysema, exudative, loculated) [ ]XII. Immunocompromised patients (e.g., AIDS, chronic steroid use) at moderate or high risk based on clinical evaluation. Extended stay beyond goal length of stay may be needed for (20) [ ]a) Unclear diagnosis [ ]b) Pleural disease [ ]c) Severe pneumonia or treatment failure [ ]d) Respiratory failure [ ]e) New onset hyponatremia (serum Na concentration less than 135 mEq/L(mmol/ L) [ ]f) Clinically significant comorbid illness (eg, heart failure, atrial fibrillation with rapid heart rate, alcohol withdrawal, renal insufficiency)(34)(35) [ ]g) Comorbid acute exacerbation of COPD(36) [ ]h) Concomitant diagnosis of malignancy [ ]i) Concomitant altered mental status [ ]j) Culture-identified Gram-negative or antibiotic-resistant organism (eg, Pseudomonas, methicillin-resistant Staphylococcus aureus MRSA)(30) [ ]k) Healthcare-associated pneumonia (36) The original [facility] [employer] content created by [facility] has been revised. The portions of the content which have been revised are identified through the use of italic text or in bold, and [facility] has neither reviewed nor approved the modified material. All other unmodified content is copyright [facility]. Please see references footnoted in the original [facility] edition 2016 Admission Criteria Met: Yes
--- NOTE | 2017-06-08 09:22 | Hem/Onc Progress Note ---
Assessment and Plan Recent diagnosis of CML in this patient. At this time we will follow his counts. Once stable and out of the hospital, we can see him as outpatient and initiate treatment with Gleevec. would need to be compliant and monitored upon initiating Subjective Date of service: 06/08/17 Interval history: Patient known to me from previous admission at [facility]. He was diagnosed with chronic myelogenous leukemia. He has not had any treatment so far since he was not able to follow-up in my office. Patient has multiple other issues including pneumonia, substance abuse. He has had persistent leukocytosis as expected with his disease. It has been nonprogressive though. Objective - Constitutional Vitals: Last Vital Signs Temp 97.9 F 06/08/17 07:20 Pulse 114 H 06/08/17 07:20 Resp 22 06/08/17 07:20 BP 108/67 06/08/17 07:20 Pulse Ox 99 06/08/17 07:20 General appearance: temporal muscle wasting, disheveled Performance status: 4-completely disabled - Neck Neck: supple - Respiratory Respiratory: bilateral: diminished - Cardiovascular Rhythm: irregularly irregular - Gastrointestinal General gastrointestinal: Present: soft
[2017-06-08] MEDS: LOVENOX SUB-Q SCH (11:14)
[2017-06-08] MEDS ORDERED: Fluarix Quad 2017-2018(36 MOS+) IM ONE (12:00)
[2017-06-09 05:57] LABS: Anion Gap 15 mmol/L; Blood Urea Nitrogen 17 mg/dL (9-20); Carbon Dioxide 28 mmol/L (22-30); Chloride 105.9 mmol/L (98-107); Glucose 101 mg/dL (75-100); Potassium 3.4 mmol/L (3.6-5.0); Sodium 145 mmol/L (137-145)
[2017-06-09] MEDS ORDERED: LEVAQUIN 500MG/100ML 500 MG/100 ML BAG IV SCH (06:00)
[2017-06-09 06:59] LABS: Mean Corpuscular HGB Conc 29 % (32-34); Platelet Count 210 K/mm3 (140-440); Red Blood Count 4.33 M/mm3 (3.65-5.03)
[2017-06-09 07:10] LABS: Hematocrit 29.1 % (35.5-45.6); Hemoglobin 8.3 gm/dl (11.8-15.2); Mean Corpuscular Hemoglobin 19 pg (28-32); Mean Corpuscular Volume 67 fl (84-94); Red Cell Distribution Width 23.4 % (13.2-15.2); White Blood Count 30.1 K/mm3 (4.5-11.0)
[2017-06-09] MEDS: LOVENOX SUB-Q SCH (09:14)
--- NOTE | 2017-06-09 09:35 | Hem/Onc Progress Note ---
Assessment and Plan Chronic myelogenous leukemia. White count is nonprogressive. Once he is situated in the long-term, I will see him in my office and plan to start him on Gleevec if he is able to. Patient has been noncompliant and would not start till we are sure that he is able to be compliant with medications Subjective Date of service: 06/09/17 Interval history: Patient known to me from previous admission at [facility]. He was diagnosed with chronic myelogenous leukemia. He has not had any treatment so far since he was not able to follow-up in my office. Patient has multiple other issues including pneumonia, substance abuse. He has had persistent leukocytosis as expected with his disease. It has been nonprogressive though. Patient more coherent today. Objective - Exam Narrative Exam: Tired looking - Constitutional Vitals: Last Vital Signs Temp 97.5 F L 06/09/17 08:47 Pulse 113 H 06/09/17 08:47 Resp 18 06/09/17 08:47 BP 111/86 06/09/17 08:47 Pulse Ox 98 06/09/17 08:47 Performance status: 4-completely disabled - Neck Neck: supple - Respiratory Respiratory effort: Positive: normal - Cardiovascular Rhythm: regular Extremities: No edema - Gastrointestinal General gastrointestinal: Present: soft - Labs Lab Results: Laboratory Results - last 24 hr 06/09/17 06/09/17 05:24 05:24 WBC 30.1 H RBC 4.33 Hgb 8.3 L Hct 29.1 L MCV 67 L MCH 19 L MCHC 29 L RDW 23.4 H Plt Count 210 Sodium 145 Potassium 3.4 L Chloride 105.9 Carbon Dioxide 28 Anion Gap 15 BUN 17 Creatinine 0.5 L Estimated GFR > 60 BUN/Creatinine Ratio 34.00 Glucose 101 H Calcium 8.0 L
[2017-06-09 09:52] LABS: Basophils % (Manual) 0.5 % (0.0-1.8); Blastocytes % (Manual) 0 %
[2017-06-09 09:53] LABS: Anisocytosis 2+; Elliptocytes 1+; Eosinophils % (Manual) 0 % (0.0-4.3); Hypersegmented Neutrophils Few; Hypochromasia 2+; Microcytosis 2+; Poikilocytosis 1+; Tear Drop Cells Rare
[2017-06-09 09:54] LABS: Diff Status Complete
[2017-06-09] MEDS ORDERED: ATROVENT IH SCH (10:30)
[2017-06-09] MEDS ORDERED: HALFPRIN EC PO SCH (11:00)
[2017-06-09] MEDS ORDERED: LASIX PO SCH (11:00)
[2017-06-09] MEDS ORDERED: LOPRESSOR PO SCH (11:00)
[2017-06-09] MEDS ORDERED: XANAX PO PRN (11:00)
[2017-06-09] MEDS ORDERED: K-DUR PO SCH (11:00)
[2017-06-09] MEDS ORDERED: PEPCID PO SCH (11:00)
[2017-06-09] MEDS ORDERED: XOPENEX IH SCH (11:00)
[2017-06-09] MEDS ORDERED: NEURONTIN PO SCH (14:00)
--- NOTE | 2017-06-09 15:36 | Progress Note ---
Assessment and Plan Assessment and plan: 72 years old with multiple chronic medical conditions, recently discharged and brought back by his family who is unable to care for him 1. CML 2. Anemia 3. CHF 4. Hypertension 5. Afib 6. COPD 7. Malnutrition Plan - Resume home medications and consult dietitian for supplementation 8. Dispo - director case consulted for placement - SNF with hospice History Interval history: confused Hospitalist Physical - Constitutional Vitals: Temp Pulse Resp BP Pulse Ox 98.8 F 134 H 20 114/76 100 06/09/17 13:18 06/09/17 13:18 06/09/17 13:18 06/09/17 13:18 06/09/17 13:18 General appearance: Present: no acute distress, cachectic, disheveled - Neck Neck: Absent: enlarged thyroid, masses or JVD, carotid bruits - Respiratory Respiratory effort: normal Respiratory: bilateral: diminished, negative: rhonchi, wheezing - Cardiovascular Rhythm: irregularly irregular (tachy) Heart Sounds: Present: S1 & S2. Absent: systolic murmur - Extremities Extremities: no ischemia, abnormal (muscle wasting) - Abdominal General gastrointestinal: soft, non-tender, non-distended, normal bowel sounds - Psychiatric Psychiatric: no appropriate mood/affect, no intact judgment & insight, no memory intact - Neurologic Neurologic: moves all extremities Results - Labs CBC & Chem 7: 06/09/17 05:24 06/09/17 05:24 Labs: Laboratory Last Values WBC 30.1 K/mm3 (4.5-11.0) H 06/09/17 05:24 RBC 4.33 M/mm3 (3.65-5.03) 06/09/17 05:24 Hgb 8.3 gm/dl (11.8-15.2) L 06/09/17 05:24 Hct 29.1 % (35.5-45.6) L 06/09/17 05:24 MCV 67 fl (84-94) L 06/09/17 05:24 MCH 19 pg (28-32) L 06/09/17 05:24 MCHC 29 % (32-34) L 06/09/17 05:24 RDW 23.4 % (13.2-15.2) H 06/09/17 05:24 Plt Count 210 K/mm3 (140-440) 06/09/17 05:24 Add Manual Diff Complete 06/09/17 05:24 Total Counted 200 06/09/17 05:24 Seg Neutrophils % Crew Team Member 06/08/17 00:28 Seg Neuts % (Manual) 90.0 % (40.0-70.0) H 06/09/17 05:24 Band Neutrophils % 0.5 % 06/09/17 05:24 Lymphocytes % (Manual) 2.0 % (13.4-35.0) L 06/09/17 05:24 Reactive Lymphs % (Man) 0 % 06/09/17 05:24 Monocytes % (Manual) 3.0 % (0.0-7.3) 06/09/17 05:24 Eosinophils % (Manual) 0 % (0.0-4.3) 06/09/17 05:24 Basophils % (Manual) 0.5 % (0.0-1.8) 06/09/17 05:24 Metamyelocytes % 1.5 % 06/09/17 05:24 Myelocytes % 2.5 % 06/09/17 05:24 Promyelocytes % 0 % 06/09/17 05:24 Blast Cells % 0 % 06/09/17 05:24 Nucleated RBC % Not Reportable 06/09/17 05:24 Seg Neutrophils # Man 27.1 K/mm3 (1.8-7.7) H 06/09/17 05:24 Band Neutrophils # 0.2 K/mm3 06/09/17 05:24 Lymphocytes # (Manual) 0.6 K/mm3 (1.2-5.4) L 06/09/17 05:24 Abs React Lymphs (Man) 0.0 K/mm3 06/09/17 05:24 Monocytes # (Manual) 0.9 K/mm3 (0.0-0.8) H 06/09/17 05:24 Eosinophils # (Manual) 0.0 K/mm3 (0.0-0.4) 06/09/17 05:24 Basophils # (Manual) 0.2 K/mm3 (0.0-0.1) H 06/09/17 05:24 Metamyelocytes # 0.5 K/mm3 06/09/17 05:24 Myelocytes # 0.8 K/mm3 06/09/17 05:24 Promyelocytes # 0.0 K/mm3 06/09/17 05:24 Blast Cells # 0.0 K/mm3 06/09/17 05:24 WBC Morphology Not Reportable 06/09/17 05:24 Hypersegmented Neuts Few 06/09/17 05:24 Hyposegmented Neuts Not Reportable 06/09/17 05:24 Hypogranular Neuts Not Reportable 06/09/17 05:24 Smudge Cells Not Reportable 06/09/17 05:24 Toxic Granulation Not Reportable 06/09/17 05:24 Toxic Vacuolation Not Reportable 06/09/17 05:24 Dohle Bodies Not Reportable 06/09/17 05:24 Pelger-Huet Anomaly Not Reportable 06/09/17 05:24 Grabiel Rods Not Reportable 06/09/17 05:24 Platelet Estimate Appears normal 06/09/17 05:24 Clumped Platelets Not Reportable 06/09/17 05:24 Plt Clumps, EDTA Not Reportable 06/09/17 05:24 Large Platelets Not Reportable 06/09/17 05:24 Giant Platelets Not Reportable 06/09/17 05:24 Platelet Satelliting Not Reportable 06/09/17 05:24 Plt Morphology Comment Not Reportable 06/09/17 05:24 RBC Morphology Not Reportable 06/09/17 05:24 Dimorphic RBCs Not Reportable 06/09/17 05:24 Polychromasia Not Reportable 06/09/17 05:24 Hypochromasia 2+ 06/09/17 05:24 Poikilocytosis 1+ 06/09/17 05:24 Anisocytosis 2+ 06/09/17 05:24 Microcytosis 2+ 06/09/17 05:24 Macrocytosis Not Reportable 06/09/17 05:24 Spherocytes Not Reportable 06/09/17 05:24 Pappenheimer Bodies Not Reportable 06/09/17 05:24 Sickle Cells Not Reportable 06/09/17 05:24 Target Cells Not Reportable 06/09/17 05:24 Tear Drop Cells Rare 06/09/17 05:24 Ovalocytes Not Reportable 06/09/17 05:24 Helmet Cells Not Reportable 06/09/17 05:24 [place] Bodies Not Reportable 06/09/17 05:24 [place] Rings Not Reportable 06/09/17 05:24 [place] Cells Not Reportable 06/09/17 05:24 Bite Cells Not Reportable 06/09/17 05:24 Crenated Cell Not Reportable 06/09/17 05:24 Elliptocytes 1+ 06/09/17 05:24 Acanthocytes (Spur) Not Reportable 06/09/17 05:24 Rouleaux Not Reportable 06/09/17 05:24 Hemoglobin C Crystals Not Reportable 06/09/17 05:24 Schistocytes Not Reportable 06/09/17 05:24 Malaria parasites Not Reportable 06/09/17 05:24 Tacho Bodies Not Reportable 06/09/17 05:24 Hem Pathologist Commnt No 06/09/17 05:24 Sodium 145 mmol/L (137-145) 06/09/17 05:24 Potassium 3.4 mmol/L (3.6-5.0) L 06/09/17 05:24 Chloride 105.9 mmol/L (98-107) 06/09/17 05:24 Carbon Dioxide 28 mmol/L (22-30) 06/09/17 05:24 Anion Gap 15 mmol/L 06/09/17 05:24 BUN 17 mg/dL (9-20) 06/09/17 05:24 Creatinine 0.5 mg/dL (0.8-1.5) L 06/09/17 05:24 Estimated GFR > 60 ml/min 06/09/17 05:24 BUN/Creatinine Ratio 34.00 % 06/09/17 05:24 Glucose 101 mg/dL (75-100) H 06/09/17 05:24 Calcium 8.0 mg/dL (8.4-10.2) L 06/09/17 05:24 Total Bilirubin 0.60 mg/dL (0.1-1.2) 06/08/17 00:28 AST 39 units/L (5-40) 06/08/17 00:28 ALT 20 units/L (7-56) 06/08/17 00:28 Alkaline Phosphatase 153 units/L (35-129) H 06/08/17 00:28 Troponin T < 0.010 ng/mL (0.00-0.029) 06/08/17 00:28 Total Protein 5.5 g/dL (6.3-8.2) L 06/08/17 00:28 Albumin 2.9 g/dL (3.9-5) L 06/08/17 00:28 Albumin/Globulin Ratio 1.1 % 06/08/17 00:28
--- NOTE | 2017-06-09 16:20 | Discharge Summary ---
Providers - Providers Date of Admission: 06/08/17 02:53 Date of discharge: 06/09/17 Attending physician: KERLINE LEGER 06/08/17 03:39 Consult to Physician [CONS] Routine Consulting Provider: CARMEN MCDERMOTT Reason For Exam: ?cll Notified:: pathology secretary pl call 06/09/17 09:08 Physical Therapy Evaluation and Treat [CONS] Routine Comment: debility Reason For Exam: skillied need for snf 06/09/17 15:37 Consult to Dietitian/Nutrition [CONS] Routine Physician Instructions: Reason For Exam: Reason for Consult: Malnutrition Primary care physician: FIELD TRAINER Hospitalization Reason for admission: family unablr to take care Condition: Poor Hospital course: 72 years old with multiple chronic medical conditions - CML, anemia, CHF, A. fib , hypertension, COPD, severe malnutrition, recently discharged was brought back by his family who is unable to care for him. Family decided to proceed with inpatient hospice. Discharge diagnoses: 1. CML 2. Anemia 3. CHF 4. Hypertension 5. Afib 6. COPD 7. Malnutrition Disposition: [facility] ([facility]) Time spent for discharge: 35 min Core Measure Documentation - Palliative Care Palliative Care/ Comfort Measures: Hospice Care - Core Measures Any of the following diagnoses?: heart failure - Heart Failure Discharge Requirements MARIBEL/ARB for LVSD if EF <40%: No Reason for no MARIBEL/ARB: Medical contraindication Beta stacia at discharge: Yes Exam - Constitutional Vitals: Temp Pulse Resp BP Pulse Ox 98.8 F 134 H 20 114/76 100 06/09/17 13:18 06/09/17 13:18 06/09/17 13:18 06/09/17 13:18 06/09/17 13:18 Plan Activity: fall precautions Diet: regular Additional Instructions: Hospice physician taking over patient's care Follow up with: PRIMARY CARE, [Primary Care Provider] - 3-5 Days
[2017-06-09] MEDS ORDERED: LANOXIN PO SCH (17:00)
[2017-06-09 18:06] VITALS: BP 116/83
== END 2017-06-09 19:21 | disposition hospice, inpatient (51) | DRG 840 ==
LOC: ED 22:16 → 4A 06-08 02:53
PROVIDERS: ADMIT Internal Medicine; ATTEND Internal Medicine
DX: C91.10 Chronic lymphocytic leukemia of B-cell type not having achieved remission (principal); J18.9 Pneumonia, unspecified organism; E43 Unspecified severe protein-calorie malnutrition; Z68.1 Body mass index [BMI] 19.9 or less, adult; I48.91 Unspecified atrial fibrillation; J44.9 Chronic obstructive pulmonary disease, unspecified; Z88.8 Allergy status to other drugs, medicaments and biological substances; I11.0 Hypertensive heart disease with heart failure; I50.9 Heart failure, unspecified; E11.9 Type 2 diabetes mellitus without complications; K21.9 Gastro-esophageal reflux disease without esophagitis; Z90.49 Acquired absence of other specified parts of digestive tract; Z79.82 Long term (current) use of aspirin; I25.10 Atherosclerotic heart disease of native coronary artery without angina pectoris; Z82.49 Family history of ischemic heart disease and other diseases of the circulatory system; M54.9 Dorsalgia, unspecified; G89.29 Other chronic pain; D64.9 Anemia, unspecified
CPT/HCPCS: 36415; 71010; 80048; 80053; 84484; 85007; 85025; 87040; 90686; 93005; 93010; 94640; 94760; 96374; J1650; J1956; J7030